=== PATIENT | male | born 1930 | race Two or more races ===

== ENCOUNTER 2016-11-22 20:48 | Inpatient (IN) | payer MEDICARE, MEDICAID ==
[~2016-11-22] VITALS: Ht 175.3 cm; Wt 46.3 kg
[~2016-11-22 20:48] MED LIST: CEFTIN500 MG PO; CLARITIN10 M2 PO; CLARITIN10 MG PO; DALIRESP PO; ECOTRIN81 MG PO; EXELON3 MG PO; FLOMAX0.4 MG PO; JANUVIA100 MG PO; KENALOG 0.1% LO60 ML TD; KENALOG IN ORABA1 EA TOP; LEXAPRO10 MG PO; MUCINEX600 MG PO; NAMENDA10 MG PO; NORCO 5-325 TA1 EACH ORAL; SILVADENE CREAM50 GM TOP; TYLENOL325 MG PO; TYLENOL500 MG PO; [UNRECOGNIZED DRUG - OTHER]; daliresp PO; vitamin e PO
[2016-11-22 22:05] LABS: BASOPHILS % (AUTO) 0.4 % (0.0-2.0); EOSINOPHILS % (AUTO) 0.5 % (0.0-3.0); LYMPHOCYTES % (AUTO) 10.4 % (20.0-45.0); MEAN CORPUSCULAR HEMOGLOBIN 35.1 PG (27.0-31.0); MEAN CORPUSCULAR HGB CONC 34.6 G/DL (32.0-36.0); MEAN CORPUSCULAR VOLUME 101 FL (80-99); MEAN PLATELET VOLUME 6.2 FL (6.5-10.1); MONOCYTES % (AUTO) 8.1 % (1.0-10.0); NEUTROPHILS % (AUTO) 80.6 % (45.0-75.0); PLATELET COUNT 216 K/UL (150-450); RED BLOOD COUNT 3.53 M/UL (4.70-6.10); RED CELL DISTRIBUTION WIDTH 11.2 % (11.6-14.8)
[2016-11-22 22:34] LABS: TROPONIN I < 0.30 ng/mL (<=0.30)
[2016-11-22 22:37] LABS: ALANINE AMINOTRANSFERASE 9 U/L (3-41); ALBUMIN/GLOBULIN RATIO 0.9 (1.0-2.7); ANION GAP 13 (5-15); ASPARTATE AMINO TRANSFERASE 20 U/L (5-40); CALCIUM 9.8 mg/dL (8.6-10.2); CARBON DIOXIDE 24 mEQ/L (20-30); CHLORIDE 98 mEQ/L (98-107); CREATININE 0.8 mg/dL (0.7-1.2); HEMOLYSIS 32; POTASSIUM 4.4 mEQ/L (3.4-4.9); SODIUM 135 mEQ/L (135-145); TOTAL PROTEIN 8.5 g/dL (6.6-8.7)
[2016-11-22 22:40] LABS: APPEARANCE,URINE CLEAR; KETONES,URINE 2+ (NEGATIVE); LEUKOCYTE ESTERASE ,URINE 2+ (NEGATIVE); NITRITE,URINE NEGATIVE (NEGATIVE); PH,URINE 6 (4.5-8.0); PROTEIN,URINE 2+ (NEGATIVE); UROBILINOGEN,URINE 1 MG/DL (0.0-1.0)
[2016-11-22 22:47] LABS: CKMB 4.1 ng/mL (< 6.7)
[2016-11-22 22:53] LABS: BACTERIA,URINE FEW /HPF
[2016-11-22 22:54] LABS: AMORPHOUS SEDIMENT,UR FEW /LPF
[2016-11-22] MEDS ORDERED: Azithromycin 500 MG in NS 275 ML IV SCH (23:00)
[2016-11-22] MEDS ORDERED: cefTRIAXone 1 GM in NS 55 ML IV SCH (23:00)
--- NOTE | 2016-11-22 23:19 | Emergency Room Report ---
History of Present Illness General Chief Complaint: Multiple Trauma/Fall Source: Family Member, EMS Present Illness HPI 86-year-old male presents ED for evaluation. Per EMS patient fell from his bed this morning and unable to get up. Patient was found in the evening. Patient is weak and unable to bear weight. Complaining of hip pain. 10 out of 10. Nonradiating. Unable to bear weight. Denies chest pain shortness of breath. Denies fevers or chills. PMD is Dr. Benítez. No other aggravating relieving factors. Denies any other associated symptoms Allergies: Coded Allergies: No Known Allergies (Unverified , 04/23/12) UNABLE TO ASSESS (Unverified , 11/22/16) Patient History Past Medical History: none Past Surgical History: none Pertinent Family History: none Social History: Denies: alcohol use, drug use, smoking Immunizations: UTD Reviewed Nursing Documentation: PMH: Agreed, PSxH: Agreed Nursing Documentation-PMH Past Medical History: No History, Except For Hx Cancer: Yes - high WBC Review of Systems All Other Systems: negative except mentioned in HPI Physical Exam Vital Signs Date Time Temp Pulse Resp B/P Pulse Ox O2 Delivery O2 Flow Rate FiO2 11/22/16 20:29 82 14 103/66 96 Room Air Sp02 EP Interpretation: reviewed, normal General Appearance: alert, GCS 15, non-toxic, mild distress, thin Head: normocephalic, atraumatic Eyes: bilateral eye PERRL, bilateral eye normal inspection ENT: hearing grossly normal, normal pharynx, no angioedema, normal voice Neck: full range of motion, supple/symm/no masses Respiratory: chest non-tender, lungs clear, normal breath sounds, speaking full sentences Cardiovascular #1: regular rate, rhythm, no edema Cardiovascular #2: 2+ carotid (R), 2+ carotid (L), 2+ radial (R), 2+ radial (L) , 2+ dorsalis pedis (R), 2+ dorsalis pedis (L) Gastrointestinal: normal bowel sounds, non tender, soft, non-distended, no guarding, no rebound Rectal: deferred Genitourinary: normal inspection, no CVA tenderness Musculoskeletal: back normal, gait/station normal, normal range of motion, tender Neurologic: alert, responsive, motor strength/tone normal, sensory intact, speech normal Psychiatric: mood/affect normal, no suicidal/homicidal ideation Reflexes: 3+ bicep (R), 3+ bicep (L), 3+ tricep (R), 3+ tricep (L), 3+ knee (R) , 3+ knee (L) Skin: normal color, no rash, warm/dry, well hydrated Lymphatic: no adenopathy Medical Decision Making Diagnostic Impression: Primary Impression: Gait instability Additional Impressions: Weakness UTI (urinary tract infection) Qualified Codes: N39.0 - Urinary tract infection, site not specified ER Course Hospital Course 86-year-old male complaining of hip pain weakness found down x1 day Differential diagnoses include: AR/unstable angina, arrythmia, dehydration, CVA/ TIA Clinical course Patient placed on stretcher. 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 After initial history and physical I ordered labs, EKG, chest x-ray, IVFs, CT Brain, CT Pelvis labs reviewed- noted leukocytosis, hemoglobin/hematocrit ok, electrolytes okay, troponins negative, UA + bacteria EKG- NSR, no acute changes interpreted by me Chest x-ray- atelectasis, interstitial changes CT brain-unremarkable, CT Pelvis ok IV fluids given, antibiotics given Case discussed with Dr. Benítez and he agreed to accept the patient to his service for further care and support I. I feel this is a highly complex case requiring extensive working including EKG/Rhythm strip, Xray/CT/US, Blood/urine lab work, repeat exams while in ED, and administration of strong opiates/narcotics for pain control, admission to hospital or close patient follow up. Diagnosis - gait instability, weakness, UTI admitted to floor in serious condition Labs Test 11/22/16 21:25 11/22/16 22:20 White Blood Count 17.0 K/UL (4.8-10.8) Red Blood Count 3.53 M/UL (4.70-6.10) Hemoglobin 12.4 G/DL (14.2-18.0) Hematocrit 35.8 % (42.0-52.0) Mean Corpuscular Volume 101 FL (80-99) Mean Corpuscular Hemoglobin 35.1 PG (27.0-31.0) Mean Corpuscular Hemoglobin Concent 34.6 G/DL (32.0-36.0) Red Cell Distribution Width 11.2 % (11.6-14.8) Platelet Count 216 K/UL (150-450) Mean Platelet Volume 6.2 FL (6.5-10.1) Neutrophils (%) (Auto) 80.6 % (45.0-75.0) Lymphocytes (%) (Auto) 10.4 % (20.0-45.0) Monocytes (%) (Auto) 8.1 % (1.0-10.0) Eosinophils (%) (Auto) 0.5 % (0.0-3.0) Basophils (%) (Auto) 0.4 % (0.0-2.0) Sodium Level 135 mEQ/L (135-145) Potassium Level 4.4 mEQ/L (3.4-4.9) Chloride Level 98 mEQ/L (98-107) Carbon Dioxide Level 24 mEQ/L (20-30) Anion Gap 13 (5-15) Blood Urea Nitrogen 28 mg/dL (7-23) Creatinine 0.8 mg/dL (0.7-1.2) Estimat Glomerular Filtration Rate mL/min (>60) Glucose Level 114 mg/dL (74-106) Lactic Acid Level 1.60 mmol/L (0.66-2.22) Calcium Level 9.8 mg/dL (8.6-10.2) Total Bilirubin 0.9 mg/dL (0.0-1.2) Aspartate Amino Transf (AST/SGOT) 20 U/L (5-40) Alanine Aminotransferase (ALT/SGPT) 9 U/L (3-41) Alkaline Phosphatase 92 U/L (40-129) Total Creatine Kinase 167 U/L (38-174) Creatine Kinase MB 4.1 ng/mL (< 6.7) Creatine Kinase MB Relative Index 2.4 Troponin I < 0.30 ng/mL (<=0.30) Pro-B-Type Natriuretic Peptide 526 pg/mL (0-450) Total Protein 8.5 g/dL (6.6-8.7) Albumin 4.2 g/dL (3.5-5.2) Globulin 4.3 g/dL Albumin/Globulin Ratio 0.9 (1.0-2.7) Urine Color Yellow Urine Appearance Clear Urine pH 6 (4.5-8.0) Urine Specific [place] 1.020 (1.005-1.035) Urine Protein 2+ (NEGATIVE) Urine Glucose (UA) Negative (NEGATIVE) Urine Ketones 2+ (NEGATIVE) Urine Occult Blood 3+ (NEGATIVE) Urine Nitrite Negative (NEGATIVE) Urine Bilirubin Negative (NEGATIVE) Urine Urobilinogen 1 MG/DL (0.0-1.0) Urine Leukocyte Esterase 2+ (NEGATIVE) Urine RBC 5-10 /HPF (0 - 0) Urine WBC 2-4 /HPF (0 - 0) Urine Squamous Epithelial Cells None /LPF (NONE/OCC) Urine Amorphous Sediment Few /LPF (NONE) Urine Bacteria Few /HPF (NONE) EKG Diagnostic Results Rate: normal Rhythm: NSR ST Segments: no acute changes ASA given to the pt in ED: No Rhythm Strip Diag. Results EP Interpretation: yes Rhythm: NSR, no PVC's, no ectopy Chest X-Ray Diagnostic Results Chest X-Ray Diagnostic Results : Chest X-Ray Ordered: Yes # of Views/Limited/Complete: 1 View Indication: Other - weakness EP Interpretation: Yes Interpretation: no effusion, no pneumothorax, no acute cardiopulmonary disease, other - atelectasis. interstitial changes Impression: Other - atelectasis Interpreting ER Provider: electronically signed by Jon steen mD CT/MRI/US Diagnostic Results CT/MRI/US Diagnostic Results #1: Imaging Test Ordered: CT Head Impression no acute process CT/MRI/US Diagnostic Results #2: Imaging Test Ordered: CT Pelvis Impression no acute process Last Vital Signs Date Time Temp Pulse Resp B/P Pulse Ox O2 Delivery O2 Flow Rate FiO2 11/22/16 20:29 82 14 103/66 96 Room Air Status: improved Disposition: ADMITTED INPATIENT Condition: Serious Referrals: NOT CHOSEN IPA/,REFERRING (PCP) JON STEEN M.D. Nov 22, 2016 23:19
[2016-11-22] MEDS ORDERED: Azithromycin Inj IV ONE (23:29)
[2016-11-23 01:34] VITALS: BP 126/55
[2016-11-23 04:38] VITALS: BP 120/60
[2016-11-23 07:04] LABS: BASOPHILS % (AUTO) 0.3 % (0.0-2.0); EOSINOPHILS % (AUTO) 1.5 % (0.0-3.0); MEAN CORPUSCULAR HEMOGLOBIN 34.4 PG (27.0-31.0); MEAN CORPUSCULAR HGB CONC 33.6 G/DL (32.0-36.0); MEAN CORPUSCULAR VOLUME 102 FL (80-99); MEAN PLATELET VOLUME 6.7 FL (6.5-10.1); MONOCYTES % (AUTO) 8.7 % (1.0-10.0); NEUTROPHILS % (AUTO) 74.5 % (45.0-75.0); PLATELET COUNT 204 K/UL (150-450); RED BLOOD COUNT 3.13 M/UL (4.70-6.10); RED CELL DISTRIBUTION WIDTH 11.3 % (11.6-14.8); WHITE BLOOD COUNT 11.4 K/UL (4.8-10.8)
[2016-11-23 07:36] LABS: ANION GAP 8 (5-15); CALCIUM 8.9 mg/dL (8.6-10.2); CARBON DIOXIDE 27 mEQ/L (20-30); CHLORIDE 103 mEQ/L (98-107); CREATININE 0.7 mg/dL (0.7-1.2); HEMOLYSIS 3; POTASSIUM 4.6 mEQ/L (3.4-4.9); SODIUM 138 mEQ/L (135-145)
[2016-11-23 08:34] VITALS: BP 140/70
[2016-11-23] MEDS: Memantine 10mg tab ORAL SCH ×2 (09:53→17:51)
[2016-11-23] MEDS: EXELON 4.6 MG TDERMAL SCH (09:54)
[2016-11-23] MEDS: Heparin 5000 units/ml inj SUBQ SCH ×2 (09:56→17:58)
[2016-11-23] MEDS: Azithromycin 500 MG in NS 275 ML IV SCH (11:17)
[2016-11-23 11:23] VITALS: BP 136/68
[2016-11-23] MEDS: cefTRIAXone 1 GM in NS 55 ML IVPB SCH (13:04)
[2016-11-23 15:56] VITALS: BP 142/75
[2016-11-23] MEDS ORDERED: LORazepam 0.5mg tab ORAL PRN (16:45)
--- NOTE | 2016-11-23 16:51 | General Progress Note ---
Assessment/Plan Status: stable Assessment/Plan 1. UTI - cont Rocephin 1 gm IV daily. 2. Generalized Weakness - PT/OT eval and txt ordered. 3. Ella instability - Plan to transfer to [facility] or [facility] on Sunday. 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 5. DM II - stable. 6. BPH - cont flomax 0.4 mg one po qhs. 7. COPD - Symbicort 160/4.5 one puff bid and Spiriva one cap daily. 8. Anxiety disorder - Ativan 0.5 mg one po qhs prn. 9. GERD- start zantac 150 gm one po qhs. Subjective Date patient seen: Nov 23, 2016 Time patient seen: 08:40 Constitutional: Reports: weakness HEENT: Reports: no symptoms Cardiovascular: Reports: no symptoms Respiratory: Reports: no symptoms Gastrointestinal/Abdominal: Reports: no symptoms Genitourinary: Reports: no symptoms Neurologic/Psychiatric: Reports: no symptoms Endocrine: Reports: no symptoms Hematologic/Lymphatic: Reports: no symptoms Allergies: Coded Allergies: No Known Allergies (Unverified , 04/23/12) UNABLE TO ASSESS (Unverified , 11/22/16) Subjective He is resting on the bed. No SOB or Chest pain. No fever or chills. He still feels weak. Objective Last 24 Hour Vital Signs Date Time Temp Pulse Resp B/P Pulse Ox O2 Delivery O2 Flow Rate FiO2 11/23/16 15:56 98.4 70 20 142/75 98 Room Air 11/23/16 11:23 98.0 68 20 136/68 98 Room Air 11/23/16 08:34 97.2 64 20 140/70 98 Room Air 11/23/16 04:38 98.1 70 21 120/60 99 Room Air 70 70 11/23/16 02:20 97.5 11/23/16 01:34 97.5 57 21 126/55 96 Room Air 57 57 11/23/16 00:15 98.8 79 19 97 Room Air 84 11/23/16 00:07 69 17 148/53 97 Room Air 11/22/16 20:29 82 14 103/66 96 Room Air Intake and Output 11/22/16 11/23/16 19:00 07:00 Intake Total 250 ml Output Total 100 ml Balance 150 ml IV Total 250 ml Output Urine Total 100 ml # Voids 1 Laboratory Tests 11/22/16 21:25: White Blood Count 17.0H, Red Blood Count 3.53L, Hemoglobin 12.4L, Hematocrit 35.8L, Mean Corpuscular Volume 101H, Mean Corpuscular Hemoglobin 35.1H, Mean Corpuscular Hemoglobin Concent 34.6, Red Cell Distribution Width 11.2L, Platelet Count 216, Mean Platelet Volume 6.2L, Neutrophils (%) (Auto) 80.6H, Lymphocytes (%) (Auto) 10.4L, Monocytes (%) (Auto) 8.1, Eosinophils (%) (Auto) 0.5, Basophils (%) (Auto) 0.4, Sodium Level 135, Potassium Level 4.4, Chloride Level 98, Carbon Dioxide Level 24, Anion Gap 13, Blood Urea Nitrogen 28H, Creatinine 0.8, Estimat Glomerular Filtration Rate , Glucose Level 114H, Lactic Acid Level 1.60, Calcium Level 9.8, Total Bilirubin 0.9, Aspartate Amino Transf (AST/SGOT) 20, Alanine Aminotransferase (ALT/SGPT) 9, Alkaline Phosphatase 92, Total Creatine Kinase 167, Creatine Kinase MB 4.1, Creatine Kinase MB Relative Index 2.4, Troponin I < 0.30, Pro-B-Type Natriuretic Peptide 526H, Total Protein 8.5, Albumin 4.2, Globulin 4.3, Albumin/Globulin Ratio 0.9L 11/22/16 22:20: Urine Color Yellow, Urine Appearance Clear, Urine pH 6, Urine Specific [place] 1.020, Urine Protein 2+H, Urine Glucose (UA) Negative, Urine Ketones 2+H, Urine Occult Blood 3+H, Urine Nitrite Negative, Urine Bilirubin Negative, Urine Urobilinogen 1H, Urine Leukocyte Esterase 2+H, Urine RBC 5-10H, Urine WBC 2-4, Urine Squamous Epithelial Cells None, Urine Amorphous Sediment FewH, Urine Bacteria Few 11/23/16 05:50: White Blood Count 11.4H, Red Blood Count 3.13L, Hemoglobin 10.8L, Hematocrit 32.0L, Mean Corpuscular Volume 102H, Mean Corpuscular Hemoglobin 34.4H, Mean Corpuscular Hemoglobin Concent 33.6, Red Cell Distribution Width 11.3L, Platelet Count 204, Mean Platelet Volume 6.7, Neutrophils (%) (Auto) 74.5, Lymphocytes (%) (Auto) 15.0L, Monocytes (%) (Auto) 8.7, Eosinophils (%) (Auto) 1.5, Basophils (%) (Auto) 0.3, Sodium Level 138, Potassium Level 4.6, Chloride Level 103, Carbon Dioxide Level 27, Anion Gap 8, Blood Urea Nitrogen 21, Creatinine 0.7, Estimat Glomerular Filtration Rate , Glucose Level 107H, Calcium Level 8.9 Height (Feet): 5 Height (Inches): 9.00 Weight (Pounds): 102 General Appearance: no apparent distress, alert EENT: normal ENT inspection Neck: non-tender, normal alignment, supple Cardiovascular: normal peripheral pulses, normal rate, regular rhythm Respiratory/Chest: chest wall non-tender, lungs clear, normal breath sounds, no respiratory distress Abdomen: normal bowel sounds, non tender, soft, no organomegaly Extremities: normal range of motion, non-tender, normal inspection Edema: no edema noted Arm (L), no edema noted Arm (R), no edema noted Leg (L), no edema noted Leg (R), no edema noted Pedal (L), no edema noted Pedal (R), no edema noted Generalized Neurologic: alert, responsive Lymphatic: normal anterior cervical (L), normal anterior cervical (R), normal axillary (L), normal axillary (R), normal inguinal (L), normal inguinal (R), normal other, normal posterior cervical (L), normal posterior cervical (R), normal submandibular (L), normal submandibular (R), normal supraclavicular (L), normal supraclavicular (R) LETY BENNETT Nov 23, 2016 16:51
[2016-11-23 20:00] VITALS: BP 129/59
[2016-11-23] MEDS: Tamsulosin 0.4mg cap ORAL SCH (20:54)
[2016-11-24] VITALS: BP 121/60
[2016-11-24 04:00] VITALS: BP 113/54
--- NOTE | 2016-11-24 04:45 | History and Physical Report ---
DATE OF ADMISSION: 11/22/2016 CHIEF COMPLAINT: Generalized weakness and recent fall. HISTORY OF PRESENT ILLNESS: This is an 86-year-old [place] male who was brought in by paramedics for complaint of a fall at home. The patient fell from his bed at home and was unable to stand up. He was extremely weak and unable to bear any weight. The patient's states that he has been weak in the last few days. PAST MEDICAL HISTORY: History of diabetes, BPH, Alzheimer disease, depression, history of pneumonia and bronchiectasis previously, osteoarthritis of the feet and ankle and the knees, diabetic neuropathy and chronic headache. PAST SURGICAL HISTORY: Back surgery in 2004 and also had a prostate surgery as well. ALLERGIES: No known drug allergies. SOCIAL HISTORY: No history of smoking, no alcohol, or drug use. FAMILY HISTORY: Noncontributory. REVIEW OF SYSTEMS: Everything is negative except for history of present illness. PHYSICAL EXAMINATION: VITAL SIGNS: Blood pressure is 103/66, pulse 82, respiration 14 and pulse oximetry 96% on room air. GENERAL APPEARANCE: Alert, nontoxic and in no acute distress. HEENT: Normocephalic. Normochromic. Extraocular muscles intact. Throat is clear. NECK: Supple. No lymphadenopathy. LUNGS: Clear to auscultation bilaterally. No rales. No rhonchi. CARDIOVASCULAR: Regular rate and rhythm. No murmur. No gallop. ABDOMEN: Soft, nontender, and nondistended. Positive bowel sounds. GENITOURINARY: No CVA tenderness. EXTREMITIES: No edema, cyanosis or clubbing. SKIN: No rash. LABORATORY AND DIAGNOSTIC DATA: Sodium 135, potassium 4.4, chloride 98, bicarbonate 24, BUN 28, creatinine 0.8, and glucose 114. Lactic acid 1.6. Calcium 9.8. AST 20, ALT 9 and alkaline phosphatase 92. Troponin less than 0.3. BNP 526. Albumin 4.2. WBC 17,000, hemoglobin 12.4, hematocrit 35.8, and platelet count is 216,000 neutrophils 880.6. Urine showed +2 urine protein, +2 ketones, +3 occult blood, urobilinogen is 1, leukocyte esterase is 2+ and urine RBC of 5-10, urine WBC 2-4 and amorphous sediment showed few sediments and no epithelial cells and few bacteria. Chest x-ray was negative for acute changes. EKG showed normal sinus rhythm. IMPRESSION AND PLAN: 1. This is an 86-year-old [place] male who will be admitted for urinary tract infection and generalized weakness and gait instability with recent fall. The patient will be started on intravenous antibiotics and PT/OT evaluation and treatment. The patient will be discharged to rehabilitation after four days of admission. 2. History of Alzheimer disease. 3. Diabetes mellitus. 4. Benign prostatic hypertrophy. 5. Depression. 6. Osteoarthritis. 7. Diabetic neuropathy. 8. Chronic headache. She will be restarted on home medications. She will be admitted for minimum of 2 night stay for above treatment. Pantera Benítez M.D. DR: EFRAIN JOB#: [id number] CC: MOODY
[2016-11-24 06:17] LABS: BASOPHILS % (AUTO) 0.6 % (0.0-2.0); EOSINOPHILS % (AUTO) 1.5 % (0.0-3.0); LYMPHOCYTES % (AUTO) 13.9 % (20.0-45.0); MEAN CORPUSCULAR HEMOGLOBIN 34.3 PG (27.0-31.0); MEAN CORPUSCULAR HGB CONC 33.6 G/DL (32.0-36.0); MEAN CORPUSCULAR VOLUME 102 FL (80-99); MEAN PLATELET VOLUME 6.7 FL (6.5-10.1); MONOCYTES % (AUTO) 8.6 % (1.0-10.0); NEUTROPHILS % (AUTO) 75.4 % (45.0-75.0); PLATELET COUNT 222 K/UL (150-450); RED BLOOD COUNT 3.05 M/UL (4.70-6.10); WHITE BLOOD COUNT 11.6 K/UL (4.8-10.8)
[2016-11-24 06:52] LABS: ANION GAP 11 (5-15); CARBON DIOXIDE 26 mEQ/L (20-30); CHLORIDE 101 mEQ/L (98-107); CREATININE 0.6 mg/dL (0.7-1.2); HEMOLYSIS 1; POTASSIUM 4.2 mEQ/L (3.4-4.9); SODIUM 138 mEQ/L (135-145)
[2016-11-24 08:00] VITALS: BP 113/54
[2016-11-24] MEDS: cefTRIAXone 1 GM in NS 55 ML IVPB SCH (08:33)
[2016-11-24] MEDS: Memantine 10mg tab ORAL SCH ×2 (08:33→17:36)
[2016-11-24] MEDS: EXELON 4.6 MG TDERMAL SCH (08:33)
[2016-11-24] MEDS: Heparin 5000 units/ml inj SUBQ SCH ×2 (08:39→17:41)
[2016-11-24] MEDS: Azithromycin 500 MG in NS 275 ML IV SCH (09:00)
[2016-11-24 12:00] VITALS: BP 124/58
[2016-11-24 16:00] VITALS: BP 117/80
--- NOTE | 2016-11-24 18:29 | General Progress Note ---
Assessment/Plan Status: stable Assessment/Plan 1. UTI - cont Rocephin 1 gm IV daily. 2. Acute Bronchitis - cont Azithromycin 500 mg IV daily. 3. Generalized Weakness - PT/OT eval and txt ordered. 4. Ella instability - Plan to transfer to [facility] or [facility] on Sunday. 5. 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 6. DM II - stable. 7. BPH - cont flomax 0.4 mg one po qhs. 8. COPD - Symbicort 160/4.5 one puff bid and Spiriva one cap daily. 9. Anxiety disorder - Ativan 0.5 mg one po qhs prn. 10. GERD- cont zantac 150 gm one po qhs. Subjective Date patient seen: Nov 24, 2016 Time patient seen: 08:30 Constitutional: Reports: weakness HEENT: Reports: no symptoms Cardiovascular: Reports: no symptoms Respiratory: Reports: cough Gastrointestinal/Abdominal: Reports: no symptoms Genitourinary: Reports: no symptoms Neurologic/Psychiatric: Reports: no symptoms Endocrine: Reports: no symptoms Hematologic/Lymphatic: Reports: no symptoms Allergies: Coded Allergies: No Known Allergies (Unverified , 04/23/12) UNABLE TO ASSESS (Unverified , 11/22/16) Subjective He is resting on the bed. No SOB or Chest pain. No fever or chills. He still feels weak and he has slight coughing as well. Objective Last 24 Hour Vital Signs Date Time Temp Pulse Resp B/P Pulse Ox O2 Delivery O2 Flow Rate FiO2 11/24/16 16:00 99.0 70 19 117/80 96 Room Air 11/24/16 12:00 98.4 67 18 124/58 96 Room Air 11/24/16 09:32 66 16 98 Room Air 11/24/16 09:32 68 16 98 Room Air 11/24/16 08:00 98.4 69 19 113/54 97 Room Air 11/24/16 04:00 98.1 65 18 113/54 Room Air 11/24/16 00:00 99.0 69 18 121/60 96 Room Air 11/23/16 20:02 64 20 97 Room Air 11/23/16 20:01 64 20 97 Room Air 11/23/16 20:00 98.0 69 18 129/59 95 Room Air Intake and Output 11/23/16 11/24/16 19:00 07:00 Intake Total 1560 ml 840 ml Balance 1560 ml 840 ml Intake Oral 480 ml 240 ml IV Total 1080 ml Other 600 ml # Voids 5 3 Laboratory Tests 11/24/16 05:30: White Blood Count 11.6H, Red Blood Count 3.05L, Hemoglobin 10.5L, Hematocrit 31.1L, Mean Corpuscular Volume 102H, Mean Corpuscular Hemoglobin 34.3H, Mean Corpuscular Hemoglobin Concent 33.6, Red Cell Distribution Width 11.0L, Platelet Count 222, Mean Platelet Volume 6.7, Neutrophils (%) (Auto) 75.4H, Lymphocytes (%) (Auto) 13.9L, Monocytes (%) (Auto) 8.6, Eosinophils (%) (Auto) 1.5, Basophils (%) (Auto) 0.6, Sodium Level 138, Potassium Level 4.2, Chloride Level 101, Carbon Dioxide Level 26, Anion Gap 11, Blood Urea Nitrogen 15, Creatinine 0.6L, Estimat Glomerular Filtration Rate , Glucose Level 95, Calcium Level 9.0 Height (Feet): 5 Height (Inches): 9.00 Weight (Pounds): 102 General Appearance: no apparent distress, alert EENT: normal ENT inspection Neck: non-tender, normal alignment, supple Cardiovascular: normal peripheral pulses, normal rate, regular rhythm Respiratory/Chest: chest wall non-tender, lungs clear, normal breath sounds Abdomen: normal bowel sounds, non tender, soft Extremities: normal range of motion, non-tender Edema: no edema noted Arm (L), no edema noted Arm (R), no edema noted Leg (L), no edema noted Leg (R), no edema noted Pedal (L), no edema noted Pedal (R), no edema noted Generalized Neurologic: no motor/sensory deficits, alert, responsive Skin: warm/dry Lymphatic: normal anterior cervical (L), normal anterior cervical (R), normal axillary (L), normal axillary (R), normal inguinal (L), normal inguinal (R), normal other, normal posterior cervical (L), normal posterior cervical (R), normal submandibular (L), normal submandibular (R), normal supraclavicular (L), normal supraclavicular (R) LETY BENNETT Nov 24, 2016 18:29
[2016-11-24 20:00] VITALS: BP 141/71
[2016-11-24] MEDS ORDERED: Azithromycin 500 MG in D5W 275 ML IV ONE (20:00)
[2016-11-24] MEDS: Tamsulosin 0.4mg cap ORAL SCH (20:03)
[2016-11-24] MEDS ORDERED: traMADol 50mg tab ORAL PRN (20:45)
[2016-11-24] MEDS: traMADol 50mg tab ORAL PRN (21:41)
[2016-11-25] VITALS: BP 137/61
[2016-11-25 04:00] VITALS: BP 134/70
[2016-11-25 07:23] LABS: BASOPHILS % (AUTO) 0.6 % (0.0-2.0); EOSINOPHILS % (AUTO) 2.6 % (0.0-3.0); LYMPHOCYTES % (AUTO) 18.2 % (20.0-45.0); MEAN CORPUSCULAR HEMOGLOBIN 34.2 PG (27.0-31.0); MEAN CORPUSCULAR HGB CONC 34.4 G/DL (32.0-36.0); MEAN CORPUSCULAR VOLUME 100 FL (80-99); NEUTROPHILS % (AUTO) 68.6 % (45.0-75.0); PLATELET COUNT 248 K/UL (150-450); RED BLOOD COUNT 3.12 M/UL (4.70-6.10); RED CELL DISTRIBUTION WIDTH 10.7 % (11.6-14.8); WHITE BLOOD COUNT 8.7 K/UL (4.8-10.8)
[2016-11-25 08:09] LABS: ANION GAP 13 (5-15); CALCIUM 9.3 mg/dL (8.6-10.2); CARBON DIOXIDE 25 mEQ/L (20-30); CHLORIDE 97 mEQ/L (98-107); CREATININE 0.6 mg/dL (0.7-1.2); HEMOLYSIS 3; SODIUM 135 mEQ/L (135-145)
[2016-11-25 08:22] VITALS: BP 109/52
[2016-11-25] MEDS: cefTRIAXone 1 GM in NS 55 ML IVPB SCH (08:48)
[2016-11-25] MEDS: Memantine 10mg tab ORAL SCH (08:49)
[2016-11-25] MEDS: EXELON 4.6 MG TDERMAL SCH (08:49)
[2016-11-25] MEDS: traMADol 50mg tab ORAL PRN (08:53)
[2016-11-25] MEDS: Heparin 5000 units/ml inj SUBQ SCH (08:56)
[2016-11-25] MEDS ORDERED: ACETAMINOPHEN325 M1 ORAL (10:04)
[2016-11-25] MEDS ORDERED: SYMBICORT 1601 PUFFS INH (10:06)
[2016-11-25] MEDS ORDERED: RANITIDINE HCL150 MG ORAL (10:07)
[2016-11-25] MEDS ORDERED: SPIRIVA18 MCG INH (10:08)
[2016-11-25] MEDS ORDERED: TRAMADOL HCL50 MG ORAL (10:09)
[2016-11-25] MEDS ORDERED: ATIVAN0.5 MG ORAL (10:10)
[2016-11-25] MEDS ORDERED: EXELON1 EACH TD (10:11)
[2016-11-25] MEDS ORDERED: AZITHROMYCIN250 MG ORAL (10:12)
[2016-11-25] MEDS ORDERED: CEFTRIAXONE1 G2 IVPB (10:14)
[2016-11-25] MEDS ORDERED: Tubing IV Secondary IV ONE (11:30)
[2016-11-25 12:15] VITALS: BP 122/51
--- NOTE | 2016-11-25 18:45 | Discharge Summary ---
DATE OF ADMISSION: 11/22/2016 DATE OF DISCHARGE: 11/25/2016 HOSPITAL COURSE: This is an 86-year-old [place] male, who came in by paramedics for complaint of fall and was unable to be get up on the day of admission. The patient was found to have urinary tract infection and was started on intravenous Rocephin. He also had acute bronchitis with long history of chronic obstructive pulmonary disease and he was started on azithromycin intravenous as well. The patient responded to treatment well and was transferred to the group home, rehabilitation center for physical therapy followed up by transferred back to the patient home after few weeks. FINAL DIAGNOSES: Include, 1. Urinary tract infection. 2. Acute bronchitis. 3. Generalized weakness. 4. Gait instability. 5. Alzheimer disease. 6. Diabetes, type 2. 7. Benign prostatic hyperplasia. 8. Chronic obstructive pulmonary disease. 9. Anxiety disorder. 10. Gastroesophageal reflux disease. DISCHARGE MEDICATIONS: Azithromycin 500 mg one p.o. daily x2 days, acetaminophen 650 q.4 hours p.r.n. for pain, Symbicort 160/4.5 one puff b.i.d., Rocephin 1 g IV daily for 4 days, Ativan 0.5 mg daily p.r.n., Namenda 10 mg b.i.d., Zantac 150 mg p.o. daily, Exelon patch 4.5 mg one daily, Januvia 100 mg p.o. daily, Flomax 0.4 mg daily, Spiriva 18 mcg one puff daily, and Ultram 50 mg q.8 hours as needed for pain and headache. DISPOSITION: The patient will be discharged to [facility] and I will follow up the patient in the rehabilitation and outpatient. Pantera Benítez M.D. DR: CHONG JOB#: [id number] CC: MOODY
--- NOTE | 2016-11-27 19:03 | Cardiology Report ---
APPROVED REPORT EKG Measurement Heart [id number] Normal sinus rhythm Minimal voltage criteria for LVH, may be normal variant Borderline ECG
== END 2016-11-25 11:31 | DRG 690 ==
LOC: EDBD 20:48 → EMR 21:10 → 4W 21:21 → EDBEDREQ 23:33
DX: N39.0 Urinary tract infection, site not specified (principal); E11.40 Type 2 diabetes mellitus with diabetic neuropathy, unspecified; G30.9 Alzheimer's disease, unspecified; F02.80 Dementia in other diseases classified elsewhere, unspecified severity, without behavioral disturbance, psychotic disturbance, mood disturbance, and anxiety; J44.9 Chronic obstructive pulmonary disease, unspecified; W06.XXXA Fall from bed, initial encounter; R53.1 Weakness; J20.9 Acute bronchitis, unspecified; R26.81 Unsteadiness on feet; N40.0 Benign prostatic hyperplasia without lower urinary tract symptoms; F41.9 Anxiety disorder, unspecified; K21.9 Gastro-esophageal reflux disease without esophagitis; Z91.81 History of falling; M15.9 Polyosteoarthritis, unspecified
CPT/HCPCS: 36415; 70450; 71010; 72192; 80048; 80053; 81003; 82550; 82553; 83605; 83880; 84484; 85025; 87040; 93005; 94640; C9399; J2405

== ENCOUNTER 2019-06-26 10:36 | Inpatient (IN) | payer MEDICARE, MEDICAID ==
[~2019-06-26] VITALS: Ht 170.2 cm; Wt 44.9 kg
[~2019-06-26 10:36] MED LIST changes: +ACETAMINOPHEN325 M1 ORAL; +ATIVAN0.5 MG ORAL; +AZITHROMYCIN250 MG ORAL; +CEFTRIAXONE1 G2 IVPB; +EXELON1 EACH TD; +RANITIDINE HCL150 MG ORAL; +SPIRIVA18 MCG INH; +SYMBICORT 1601 PUFFS INH; +TRAMADOL HCL50 MG ORAL
[2019-06-26 10:51] VITALS: BP 100/57
--- NOTE | 2019-06-26 10:56 | NUR ---
ED Nurse Note: PT BROUGHT IN BY AMBULANCE FROM [facility] DUE TO PALPITATION HR OF 14O AFTER BREATHING TREATMENT THIS MORNING. ALSO REPORTED THAT PT IS VOMITING; PT IS ON ANTIBIOTIC DUE TO PNA. AAO X1, FOLLOWS COMMANDS WITH MILD SOB UPON EXERTION. SATS 98-100 % VIA NC OXYGEN AT 2LPM.
[2019-06-26] MEDS ORDERED: Cefepime HCl 2 GM in NS 110 ML IV ONE (11:15)
[2019-06-26] MEDS ORDERED: Vancomycin 1 GM in NS 275 ML IV ONE (11:15)
--- NOTE | 2019-06-26 11:32 | NUR ---
ED Nurse Note: COLLECTED BLOOD AND FLU SWAB THEN SENT.
[2019-06-26 11:43] LABS: HEMATOCRIT 34.8 % (42.0-52.0); HEMOGLOBIN 11.6 G/DL (14.2-18.0); MEAN CORPUSCULAR VOLUME 92 FL (80-99); PLATELET COUNT 319 K/UL (150-450); RED BLOOD COUNT 3.76 M/UL (4.70-6.10); RED CELL DISTRIBUTION WIDTH 13.2 % (11.6-14.8)
[2019-06-26 12:04] VITALS: BP 90/50
[2019-06-26 12:13] LABS: ANION GAP 12 mmol/L (5-15); BLOOD UREA NITROGEN 12 mg/dL (7-18); CALCIUM 9.1 MG/DL (8.5-10.1); CARBON DIOXIDE 22 MMOL/L (21-32); CHLORIDE 102 MMOL/L (98-107); CREATININE 0.9 MG/DL (0.55-1.30); POTASSIUM 4.5 MMOL/L (3.5-5.1); SODIUM 136 MMOL/L (136-145)
[2019-06-26] MEDS ORDERED: LATANOPROST 0.7.5 ML OP (12:21)
[2019-06-26] MEDS ORDERED: SIMETHICONE80 MG ORAL (12:21)
[2019-06-26] MEDS ORDERED: BREO ELLIPTA 11 EACH IH (12:21)
[2019-06-26] MEDS ORDERED: DOCUSATE SODIU250 MG ORAL (12:21)
[2019-06-26] MEDS ORDERED: FLOMAX0.4 MG ORAL (12:21)
[2019-06-26] MEDS ORDERED: TYLENOL EXTRA500 MG ORAL (12:21)
[2019-06-26] MEDS ORDERED: COSOPT1 DRO2 BOTH EYES (12:21)
[2019-06-26] MEDS ORDERED: ATENOLOL25 MG ORAL (12:21)
[2019-06-26] MEDS ORDERED: MULTIVITAMINS1 EAC8 ORAL (12:21)
[2019-06-26] MEDS ORDERED: PROSCAR5 MG ORAL (12:21)
[2019-06-26] MEDS ORDERED: ZANTAC150 MG ORAL (12:21)
[2019-06-26] MEDS ORDERED: MIRALAX17 G2 ORAL (12:21)
[2019-06-26] MEDS ORDERED: TRAZODONE HCL50 MG ORAL (12:21)
[2019-06-26] MEDS ORDERED: SPIRIVA18 MCG INH (12:21)
[2019-06-26 12:22] LABS: ALANINE AMINOTRANSFERASE 11 U/L (12-78); ALBUMIN 2.9 G/DL (3.4-5.0); ALBUMIN/GLOBULIN RATIO 0.5 (1.0-2.7); ALKALINE PHOSPHATASE 81 U/L (46-116); ASPARTATE AMINO TRANSFERASE 15 U/L (15-37); BILIRUBIN,TOTAL 0.7 MG/DL (0.2-1.0); CKMB 1.2 NG/ML (0.0-3.6); CREATINE KINASE 25 U/L (26-308); PHOSPHORUS 3.6 MG/DL (2.5-4.9)
[2019-06-26 12:47] LABS: APPEARANCE,URINE CLEAR; BILIRUBIN, URINE NEGATIVE (NEGATIVE); GLUCOSE, URINE (UA) NEGATIVE (NEGATIVE); KETONES,URINE 1+ (NEGATIVE); LEUKOCYTE ESTERASE ,URINE 1+ (NEGATIVE); NITRITE,URINE NEGATIVE (NEGATIVE); PH,URINE 6.5 (4.5-8.0); PROTEIN,URINE 2+ (NEGATIVE); UROBILINOGEN,URINE NORMAL MG/DL (0.0-1.0)
[2019-06-26 12:50] LABS: COLOR,URINE YELLOW
--- NOTE | 2019-06-26 12:56 | NUR ---
ED Nurse Note: REPEAT LACTIC ACID SPECIMEN SENT.
[2019-06-26] MEDS ORDERED: Albuterol/Ipratropium 3ml neb HHN ONE (13:00)
--- NOTE | 2019-06-26 14:04 | NUR ---
ED Nurse Note: NOTED MILD SKIN REDNESS ON SACRUM BUT SKIN IS INTACT.
[2019-06-26 14:05] VITALS: BP 103/54
--- NOTE | 2019-06-26 14:13 | Emergency Room Report ---
History of Present Illness General Chief Complaint: Palpitations Present Illness HPI Patient is an 89-year-old male who presented after increased cough and difficulty with breathing. Patient recently been diagnosed with pneumonia. Prior history of COPD. Reports of increased shortness of breath. He had previously been on medications which included inhalers. Patient's primary care physician is . Allergies: Coded Allergies: No Known Allergies (Unverified , 04/23/12) Patient History Past Medical History: see triage record Reviewed Nursing Documentation: PMH: Agreed; PSxH: Agreed Nursing Documentation-PMH Hx Cardiac Problems: No Hx COPD: Yes Hx Cancer: Yes Hx Dementia: Yes Review of Systems All Other Systems: negative except mentioned in HPI Physical Exam Vital Signs Date Time Temp Pulse Resp B/P (MAP) Pulse Ox O2 Delivery O2 Flow Rate FiO2 06/26/19 10:46 97.3 110 24 87/55 (66) 93 Nasal Cannula 3.0 06/26/19 12:55 32 Sp02 EP Interpretation: reviewed, normal General Appearance: normal inspection, alert, GCS 15, Chronically Ill Head: atraumatic ENT: normal ENT inspection, hearing grossly normal, normal voice Neck: normal inspection, full range of motion, supple, no bony tend Respiratory: normal inspection, no retraction, rhonchi, wheezing Cardiovascular #1: regular rate, rhythm, no edema Gastrointestinal: normal inspection, normal bowel sounds, non tender, soft, no guarding, no hernia Genitourinary: no CVA tenderness Musculoskeletal: normal inspection, back normal, normal range of motion Neurologic: alert, motor strength/tone normal, blogs manager III-XII nml as tested, oriented x3, responsive, speech normal, normal inspection Psychiatric: normal inspection, judgement/insight normal, mood/affect normal Medical Decision Making Diagnostic Impression: Primary Impression: Pneumonia ER Course Patient presented for shortness of breath. Differential included but was not limited to anemia, pneumonia, pneumothorax, myocardial infarction, pericardial effusion, congestive heart failure, acidosis chest x-ray 1 view interpreted by me showed. Normal cardiac size with patchy infiltrates worse on the left side. Patient was given IV fluids as well as IV antibiotics. Dr. Parker was contacted for admission due to primary care physician. Labs Test 06/26/19 11:30 06/26/19 11:57 06/26/19 12:20 White Blood Count 19.0 K/UL (4.8-10.8) Red Blood Count 3.76 M/UL (4.70-6.10) Hemoglobin 11.6 G/DL (14.2-18.0) Hematocrit 34.8 % (42.0-52.0) Mean Corpuscular Volume 92 FL (80-99) Mean Corpuscular Hemoglobin 31.0 PG (27.0-31.0) Mean Corpuscular Hemoglobin Concent 33.5 G/DL (32.0-36.0) Red Cell Distribution Width 13.2 % (11.6-14.8) Platelet Count 319 K/UL (150-450) Mean Platelet Volume 5.7 FL (6.5-10.1) Neutrophils (%) (Auto) % (45.0-75.0) Lymphocytes (%) (Auto) % (20.0-45.0) Monocytes (%) (Auto) % (1.0-10.0) Eosinophils (%) (Auto) % (0.0-3.0) Basophils (%) (Auto) % (0.0-2.0) Differential Total Cells Counted 100 Neutrophils % (Manual) 89 % (45-75) Lymphocytes % (Manual) 6 % (20-45) Monocytes % (Manual) 4 % (1-10) Eosinophils % (Manual) 1 % (0-3) Basophils % (Manual) 0 % (0-2) Band Neutrophils 0 % (0-8) Platelet Estimate Adequate Platelet Morphology Normal Red Blood Cell Morphology Normal Sodium Level 136 MMOL/L (136-145) Potassium Level 4.5 MMOL/L (3.5-5.1) Chloride Level 102 MMOL/L (98-107) Carbon Dioxide Level 22 MMOL/L (21-32) Anion Gap 12 mmol/L (5-15) Blood Urea Nitrogen 12 mg/dL (7-18) Creatinine 0.9 MG/DL (0.55-1.30) Estimat Glomerular Filtration Rate > 60 mL/min (>60) Glucose Level 161 MG/DL (74-106) Calcium Level 9.1 MG/DL (8.5-10.1) Phosphorus Level 3.6 MG/DL (2.5-4.9) Magnesium Level 1.9 MG/DL (1.8-2.4) Total Bilirubin 0.7 MG/DL (0.2-1.0) Aspartate Amino Transf (AST/SGOT) 15 U/L (15-37) Alanine Aminotransferase (ALT/SGPT) 11 U/L (12-78) Alkaline Phosphatase 81 U/L (46-116) Total Creatine Kinase 25 U/L (26-308) Creatine Kinase MB 1.2 NG/ML (0.0-3.6) Creatine Kinase MB Relative Index 4.8 Troponin I 0.027 ng/mL (0.000-0.056) Pro-B-Type Natriuretic Peptide 1346 pg/mL (0-125) Total Protein 8.5 G/DL (6.4-8.2) Albumin 2.9 G/DL (3.4-5.0) Globulin 5.6 g/dL Albumin/Globulin Ratio 0.5 (1.0-2.7) Urine Color Yellow Urine Appearance Clear Urine pH 6.5 (4.5-8.0) Urine Specific [place] 1.010 (1.005-1.035) Urine Protein 2+ (NEGATIVE) Urine Glucose (UA) Negative (NEGATIVE) Urine Ketones 1+ (NEGATIVE) Urine Blood 4+ (NEGATIVE) Urine Nitrite Negative (NEGATIVE) Urine Bilirubin Negative (NEGATIVE) Urine Urobilinogen Normal MG/DL (0.0-1.0) Urine Leukocyte Esterase 1+ (NEGATIVE) Urine RBC 20-30 /HPF (0 - 0) Urine WBC 0-2 /HPF (0 - 0) Urine Squamous Epithelial Cells Occasional /LPF Urine Bacteria Occasional /HPF (NONE) Lactic Acid Level 1.60 mmol/L (0.66-2.22) EKG Diagnostic Results Rate: tachycardiac Rhythm: NSR ST Segments: no acute changes Last Vital Signs Date Time Temp Pulse Resp B/P (MAP) Pulse Ox O2 Delivery O2 Flow Rate FiO2 06/26/19 13:10 84 28 100 Nasal Cannula 3.0 32 88 32 99 06/26/19 12:04 90/50 06/26/19 10:51 97.3 Status: unchanged Disposition: ADMITTED INPATIENT Condition: Stable Referrals: Pantera Benítez MD (PCP) Gene Portillo MD Jun 26, 2019 14:13
--- NOTE | 2019-06-26 14:51 | Diagnostic Imaging Report ---
. Indication: Cough, shortness of breath Technique: One view of the chest Comparison: 11/22/2016 Findings: There is diffuse bilateral interstitial disease, equivocally slightly more prominent than on prior exam although this could be an artifact of different exposure technique. There is suggestion of the left pleural effusion. The heart size is normal. Right hemidiaphragm is scalloped. Patient is rotated to the right. Impression: Interstitial disease, appearing somewhat more prominent than on prior study of 11/22/2016. Findings may reflect acute interstitial edema, progressive interstitial fibrosis, or combination of both. Correlate with clinical history and findings. Suspect small left pleural effusion
--- NOTE | 2019-06-26 15:01 | Infectious Diseases Prog Note ---
Assessment/Plan Problems: (1) Aspiration pneumonia Assessment & Plan: will start him on meropenem and vancomycin empirically and send sputum culture, since recieved zosyn in the past on multiple occasions and was recently on cefepime . aspiration precaution . swallow eval (2) Sepsis Assessment & Plan: due to the above, will start meropenem and vancomycin empirically pending blood culture (3) Dehydration Assessment & Plan: with vomiting , continue ivf for hydration, monitor lytes (4) Respiratory tract congestion with cough Assessment & Plan: due to the above, supportive care and inhalers as needed (5) Acute encephalopathy Assessment & Plan: due to the above, continue antibiotics hydration , aspiration precaution Subjective Allergies: Coded Allergies: No Known Allergies (Unverified , 04/23/12) Objective Vital Signs Last 24 Hour Vital Signs Date Time Temp Pulse Resp B/P (MAP) Pulse Ox O2 Delivery O2 Flow Rate FiO2 06/26/19 14:05 98.9 87 20 103/54 100 Nasal Cannula 2.0 06/26/19 13:10 84 28 100 Nasal Cannula 3.0 32 88 32 99 06/26/19 12:55 87 26 Nasal Cannula 3.0 32 06/26/19 12:04 24 90/50 98 Nasal Cannula 2.0 06/26/19 10:51 97.3 110 30 100/57 96 Nasal Cannula 2.0 06/26/19 10:46 97.3 110 24 87/55 (66) 93 Nasal Cannula 3.0 Height (Feet): 5 Height (Inches): 8.00 Weight (Pounds): 160 Microbiology Date/Time Source Procedure Growth Status 06/26/19 11:30 Nasal Nares - Final Complete 06/26/19 11:30 Nasal Nares - Final Complete 06/26/19 12:30 Rectum Received Laboratory Tests Test 06/26/19 11:30 06/26/19 11:57 06/26/19 12:20 White Blood Count 19.0 K/UL (4.8-10.8) H Red Blood Count 3.76 M/UL (4.70-6.10) L Hemoglobin 11.6 G/DL (14.2-18.0) L Hematocrit 34.8 % (42.0-52.0) L Mean Corpuscular Volume 92 FL (80-99) Mean Corpuscular Hemoglobin 31.0 PG (27.0-31.0) Mean Corpuscular Hemoglobin Concent 33.5 G/DL (32.0-36.0) Red Cell Distribution Width 13.2 % (11.6-14.8) Platelet Count 319 K/UL (150-450) Mean Platelet Volume 5.7 FL (6.5-10.1) L Neutrophils (%) (Auto) % (45.0-75.0) Lymphocytes (%) (Auto) % (20.0-45.0) Monocytes (%) (Auto) % (1.0-10.0) Eosinophils (%) (Auto) % (0.0-3.0) Basophils (%) (Auto) % (0.0-2.0) Differential Total Cells Counted 100 Neutrophils % (Manual) 89 % (45-75) H Lymphocytes % (Manual) 6 % (20-45) L Monocytes % (Manual) 4 % (1-10) Eosinophils % (Manual) 1 % (0-3) Basophils % (Manual) 0 % (0-2) Band Neutrophils 0 % (0-8) Platelet Estimate Adequate Platelet Morphology Normal Red Blood Cell Morphology Normal Sodium Level 136 MMOL/L (136-145) Potassium Level 4.5 MMOL/L (3.5-5.1) Chloride Level 102 MMOL/L (98-107) Carbon Dioxide Level 22 MMOL/L (21-32) Anion Gap 12 mmol/L (5-15) Blood Urea Nitrogen 12 mg/dL (7-18) Creatinine 0.9 MG/DL (0.55-1.30) Estimat Glomerular Filtration Rate > 60 mL/min (>60) Glucose Level 161 MG/DL (74-106) H Lactic Acid Level 2.10 mmol/L (0.4-2.0) H 1.60 mmol/L (0.66-2.22) Calcium Level 9.1 MG/DL (8.5-10.1) Phosphorus Level 3.6 MG/DL (2.5-4.9) Magnesium Level 1.9 MG/DL (1.8-2.4) Total Bilirubin 0.7 MG/DL (0.2-1.0) Aspartate Amino Transf (AST/SGOT) 15 U/L (15-37) Alanine Aminotransferase (ALT/SGPT) 11 U/L (12-78) L Alkaline Phosphatase 81 U/L (46-116) Total Creatine Kinase 25 U/L (26-308) L Creatine Kinase MB 1.2 NG/ML (0.0-3.6) Creatine Kinase MB Relative Index 4.8 Troponin I 0.027 ng/mL (0.000-0.056) Pro-B-Type Natriuretic Peptide 1346 pg/mL (0-125) H Total Protein 8.5 G/DL (6.4-8.2) H Albumin 2.9 G/DL (3.4-5.0) L Globulin 5.6 g/dL Albumin/Globulin Ratio 0.5 (1.0-2.7) L Urine Color Yellow Urine Appearance Clear Urine pH 6.5 (4.5-8.0) Urine Specific [place] 1.010 (1.005-1.035) Urine Protein 2+ (NEGATIVE) H Urine Glucose (UA) Negative (NEGATIVE) Urine Ketones 1+ (NEGATIVE) H Urine Blood 4+ (NEGATIVE) H Urine Nitrite Negative (NEGATIVE) Urine Bilirubin Negative (NEGATIVE) Urine Urobilinogen Normal MG/DL (0.0-1.0) Urine Leukocyte Esterase 1+ (NEGATIVE) H Urine RBC 20-30 /HPF (0 - 0) H Urine WBC 0-2 /HPF (0 - 0) Urine Squamous Epithelial Cells Occasional /LPF Urine Bacteria Occasional /HPF (NONE) Bety Saini M.D. Jun 26, 2019 15:01
[2019-06-26] MEDS ORDERED: Meropenem 1gm/NS 110ml IVPB SCH ×2 (15:45)
[2019-06-26 16:05] VITALS: BP 90/55
--- NOTE | 2019-06-26 16:40 | NUR ---
ED Nurse Note: REPORT GIVEN TO ALISIA GRAY OF [facility].
--- NOTE | 2019-06-26 16:56 | NUR ---
ED Nurse Note: PT TRANSFERRED TO [facility]IA [facility] WITH ALL HIS BELONGINGS SENT WITH HIM.
--- NOTE | 2019-06-26 17:00 | NUR ---
NURSE NOTES: Received report from GLORIA Oliver RN. Pt A/Ox1, speaks Farsi only. Pt on 2L NC, O2 sat 95%. Pt remains in position, elevated the head to 30 degrees. Redness on sacrum, no open wounds. Pt belongings checked. Pt on tele monitor. Vital signs checked: BP 98/45, HR 89, Temp 98.6F, RR 20. IV site on L AC 20g patent and asymptomatic. Bed on lowest position, call light within reach. Will continue to monitor.
--- NOTE | 2019-06-26 17:07 | General Progress Note ---
Subjective Date patient seen: Jun 26, 2019 Time patient seen: 16:45 Allergies: Coded Allergies: No Known Allergies (Unverified , 04/23/12) Subjective Patient was seen and examined in ER. Full dictation to follow. Objective Last 24 Hour Vital Signs Date Time Temp Pulse Resp B/P (MAP) Pulse Ox O2 Delivery O2 Flow Rate FiO2 06/26/19 16:05 98.2 78 16 90/55 99 Nasal Cannula 2.0 06/26/19 14:05 98.9 87 20 103/54 100 Nasal Cannula 2.0 06/26/19 13:10 84 28 100 Nasal Cannula 3.0 32 88 32 99 06/26/19 12:55 87 26 Nasal Cannula 3.0 32 06/26/19 12:04 24 90/50 98 Nasal Cannula 2.0 06/26/19 10:51 97.3 110 30 100/57 96 Nasal Cannula 2.0 06/26/19 10:46 97.3 110 24 87/55 (66) 93 Nasal Cannula 3.0 Laboratory Tests 06/26/19 11:30: White Blood Count 19.0H, Red Blood Count 3.76L, Hemoglobin 11.6L, Hematocrit 34.8L, Mean Corpuscular Volume 92, Mean Corpuscular Hemoglobin 31.0, Mean Corpuscular Hemoglobin Concent 33.5, Red Cell Distribution Width 13.2, Platelet Count 319, Mean Platelet Volume 5.7L, Neutrophils (%) (Auto) , Lymphocytes (%) ( Auto) , Monocytes (%) (Auto) , Eosinophils (%) (Auto) , Basophils (%) (Auto) , Differential Total Cells Counted 100, Neutrophils % (Manual) 89H, Lymphocytes % (Manual) 6L, Monocytes % (Manual) 4, Eosinophils % (Manual) 1, Basophils % ( Manual) 0, Band Neutrophils 0, Platelet Estimate Adequate, Platelet Morphology Normal, Red Blood Cell Morphology Normal, Sodium Level 136, Potassium Level 4.5 , Chloride Level 102, Carbon Dioxide Level 22, Anion Gap 12, Blood Urea Nitrogen 12, Creatinine 0.9, Estimat Glomerular Filtration Rate > 60, Glucose Level 161H, Lactic Acid Level 2.10H, Calcium Level 9.1, Phosphorus Level 3.6, Magnesium Level 1.9, Total Bilirubin 0.7, Aspartate Amino Transf (AST/SGOT) 15, Alanine Aminotransferase (ALT/SGPT) 11L, Alkaline Phosphatase 81, Total Creatine Kinase 25L, Creatine Kinase MB 1.2, Creatine Kinase MB Relative Index 4.8, Troponin I 0.027, Pro-B-Type Natriuretic Peptide 1346H, Total Protein 8.5H , Albumin 2.9L, Globulin 5.6, Albumin/Globulin Ratio 0.5L 06/26/19 11:57: Urine Color Yellow, Urine Appearance Clear, Urine pH 6.5, Urine Specific [place] 1.010, Urine Protein 2+H, Urine Glucose (UA) Negative, Urine Ketones 1+H , Urine Blood 4+H, Urine Nitrite Negative, Urine Bilirubin Negative, Urine Urobilinogen Normal, Urine Leukocyte Esterase 1+H, Urine RBC 20-30H, Urine WBC 0 -2, Urine Squamous Epithelial Cells Occasional, Urine Bacteria Occasional 06/26/19 12:20: Lactic Acid Level 1.60 Height (Feet): 5 Height (Inches): 8.00 Weight (Pounds): 160 Pantera Benítez MD Jun 26, 2019 17:07
--- NOTE | 2019-06-26 17:33 | NUR ---
CASE MANAGEMENT: INITIAL REVIEW 89 YO M AMELIA FROM [facility] CC: PALPITATIONS PMHx: COPD. DEMENTIA. SI:PNA. T 97.3 HR 110 RR 24 B/P 87/55 SATS 93% ON 3L/NC LABS: WBC 19 GLU 161 AST 11 TOTAL CK 25 BNP 1346 IS: NS BOLUS X1 VANCO IV X1 CEFEPIME IV X1 CXR Suspect small left pleural effusion PATIENT ADMITTED TO MED/SURG 06/26/2019 @ 1204 DCP: PATIENT TO BE DISCHARGED TO SNF ONCE MEDICALLY CLEARED. PLAN OF CARE: ID CONSULT INTERQUAL MET
--- NOTE | 2019-06-26 18:01 | Consultation ---
DATE OF CONSULTATION: 06/26/2019 INFECTIOUS DISEASE CONSULTATION CONSULTING PHYSICIAN: Bety Saini M.D. REFERRING PHYSICIAN: Pantera Benítez M.D. REASON FOR CONSULTATION: Pneumonia, sepsis, and leukocytosis in a patient who has been on antibiotics. Treatment recommendation for antibiotics treatment and further care. HISTORY OF PRESENT ILLNESS: The patient is an 89-year-old male Farsi speaker with past medical history of COPD, dementia, and cancer, was sent to [facility] emergency room for increased coughing, congestion, and difficulty breathing. Apparently, the patient was recently diagnosed with pneumonia and was [facility] by his primary care for provider. He has vomited and possibly aspirated, became short of breath, more congested and having more cough. The patient has baseline dementia, could not provide any history, so he was sent to the emergency room for evaluation. In the ER, his temperature was 97.3 with pulse of 110, blood pressure of 87/55, and hypoxemia with O2 saturation of 93% on 3 L, which was concerning for sepsis and pneumonia. The patient looked critically ill, so he was given vancomycin and cefepime in the emergency room. His white count was found to be 19 or so thousand suggestive of sepsis, so Infectious Disease consultation was requested for antibiotics treatment and further management. As of note, the patient is poor historian and cannot provide any history. Most details were obtained from the medical record. REVIEW OF SYSTEMS: Unable to obtain apart from the one I mentioned above. The patient is poor historian. PAST MEDICAL HISTORY: Significant for COPD, cancer, and dementia. PAST SURGICAL HISTORY: Negative. Not on record. FAMILY HISTORY: Unable to obtain. SOCIAL HISTORY: The [facility]. He is retired. No recent drugs, tobacco, or alcohol abuse. ALLERGIES: No known drug allergies. MEDICATIONS: The patient received vancomycin and cefepime in the ER. For the rest of his medications, please refer to JUL. PHYSICAL EXAMINATION: VITAL SIGNS: Temperature 97.3, pulse 84, respirations 32, and blood pressure 90/50. Pulse oximetry 99% on 3 L nasal cannula. GENERAL: An elderly male lying in bed, awake, alert, cachectic, confused, speaking in Farsi, not agitated, not in acute distress. Does not follow commands. HEENT: Normocephalic and atraumatic. Pupils are reactive to light equal. Pale sclerae. Moist oral mucosa. No exudate, thrush, or ulceration. NECK: Supple. No lymphadenopathy. CARDIOVASCULAR: He was tachycardic. S1, S2 normal. No gallop. LUNGS: He had crackles and rhonchi diffusely. Diminished breathing sounds at the bases. No wheezing. Normal breathing efforts. ABDOMEN: Soft, nontender, and nondistended. Normal bowel sounds. No hepatosplenomegaly or ascites. EXTREMITIES: No edema or cyanosis. SKIN: No rash. No hives. LABORATORY DATA: Showed white count of 19,000, hemoglobin of 11.6, and platelet count of 319,000. BUN of 12, creatinine of 0.9. AST of 15, ALT of 11. Lactic acid of 2.1. Urinalysis showed +4 blood, +1 ketones, +2 protein, and 2 white cell count. Microbiology - influenza screening A and B both negative. ASSESSMENT AND RECOMMENDATION: 1. Aspiration pneumonia with bilateral lungs infiltration. We will start the patient on meropenem and vancomycin empiric coverage for now. Send sputum culture. The patient received Zosyn in the past on multiple occasions and he was recently on cefepime, so we will avoid using those for now. Aspiration precaution and swallow evaluation. 2. Sepsis with leukocytosis, suspect due to the above. We will start meropenem and vancomycin empiric treatment pending blood culture. We will deescalate antibiotics based on the results. 3. Dehydration with vomiting. Continue IV fluid for hydration. Monitor electrolytes, replace as needed. 4. Respiratory distress with congestion and cough, suspect due to the above. Continue supportive care, inhalers, and antibiotics. 5. Acute encephalopathy due to the above. Continue antibiotics, hydration, aspiration precaution. Avoid sedatives Thank you for the consult. ID will continue to follow. Bety Saini M.D. DR: BRANDEN JOB#: [id number] CC:
--- NOTE | 2019-06-26 18:40 | NUR ---
NURSE NOTES: Meropenem IV due at 1800, med not in med room. Called pharmacy and made them aware.
[2019-06-26] MEDS: HYDROcodone/Acetamin 5/325 tab ORAL PRN (19:17)
[2019-06-26] MEDS: Meropenem 1 GM in NS 55 ML IVPB SCH (19:18)
[2019-06-26 19:32] LABS: BASOPHILS % (AUTO) 0.5 % (0.0-2.0); HEMATOCRIT 29.4 % (42.0-52.0); HEMOGLOBIN 9.5 G/DL (14.2-18.0); LYMPHOCYTES % (AUTO) 9.5 % (20.0-45.0); MEAN CORPUSCULAR VOLUME 96 FL (80-99); MONOCYTES % (AUTO) 5.4 % (1.0-10.0); NEUTROPHILS % (AUTO) 83.6 % (45.0-75.0); PLATELET COUNT 285 K/UL (150-450); RED BLOOD COUNT 3.05 M/UL (4.70-6.10); RED CELL DISTRIBUTION WIDTH 14.4 % (11.6-14.8); WHITE BLOOD COUNT 14.6 K/UL (4.8-10.8)
--- NOTE | 2019-06-26 19:32 | NUR ---
NURSE NOTES: Received pt from MARINA Will. Pt is awake and resting in bed in no acute distress, with HOB elevated. Iv sites intact. pt on 2 L nasal cannula support, saturating >90%. Blood tinged tip of penis noted. Bed locked in lowest position, bed alarm on, call light within reach, will continue with plan of care.
[2019-06-26 20:00] VITALS: BP 109/49
--- NOTE | 2019-06-26 20:22 | NUR ---
HAND-OFF: Report given to MARINA Howell. Pt in stable condition. Endorsed plan of care.
[2019-06-26] MEDS: Albuterol/Ipratropium 3ml neb HHN SCH (20:28)
--- NOTE | 2019-06-26 20:30 | History and Physical Report ---
DATE OF ADMISSION: 06/26/2019 CHIEF COMPLAINT: Nausea, vomiting, and shortness of breath at the rehab. HISTORY OF PRESENT ILLNESS: This is an 89-year-old [place] male with a past medical history of dementia, hypertension, depression, BPH, and chronic pain syndrome who came in from [facility] for complaint of nausea and vomiting last night and this morning and shortness of breath. The patient was recently diagnosed with pneumonia at the rehab and was started on cefepime and doxycycline, but this morning, he vomited and his O2 saturation dropped and the patient was transferred to the hospital at [facility] for evaluation. The patient has history of recurrent pneumonia in the past two to four months and was treated with Zosyn and on last episode with cefepime and doxycycline. PAST MEDICAL HISTORY: Include history of hypertension, hyperlipidemia, dementia, GERD, constipation, and BPH. PAST SURGICAL HISTORY: Negative. MEDICATIONS: Please review the pain medication brought in from [facility]. ALLERGIES: No known drug allergies. FAMILY HISTORY: Noncontributory. REVIEW OF SYSTEMS: Negative except for HPI. PHYSICAL EXAMINATION: VITAL SIGNS: Includes a temperature 97.3, pulse 110, respiration 24, blood pressure 87/55, pulse ox 93% with 3 L of nasal cannula. GENERAL APPEARANCE: He is alert, but slightly confused. HEENT: Normocephalic and normochromic. Extraocular muscles ARE intact. Throat is clear. NECK: Supple. No lymphadenopathy. LUNGS: Shows rhonchi bilaterally with slight expiratory wheezing CARDIOVASCULAR: Regular rhythm, but slightly tachycardic. GASTROINTESTINAL: Soft, nontender, nondistended. Positive bowel sounds except for light suprapubic tenderness. GENITOURINARY: No CVA tenderness. NEUROLOGICAL: Alert and responds to commands. LABORATORY AND DIAGNOSTIC DATA: Reviewed. Urine shows +4 blood, +1 ketones, +2 protein, +1 leukocyte esterase, rbc's, 0 to 2 wbc's, occasional bacteria, and occasional squamous epithelial cells. Sodium 136, potassium 4.5, chloride 102, bicarb 22, BUN 12, creatinine 0.9, glucose 151. Lactic acid is 3.1. Calcium 9.1, magnesium 3.6, phosphorus 7.9. AST 15, ALT 11, alkaline phosphatase 31. Total creatine kinase is 25, BNP is 1346. Troponin 0.027. Albumin is 2.9. WBC 19.0, hemoglobin 11.6, hematocrit 34.8, platelet count 319,000, neutrophils 89, lymphocytes 6. IMPRESSION: 1. Aspiration pneumonia. We will start the patient on vancomycin and meropenem. We will have ID see the patient as well. Aspiration precautions. 2. Sepsis due to aspiration pneumonia. We will again start the patient on IV antibiotic with vancomycin and meropenem. 3. Dehydration. We will have the patient on IV fluid. 4. Dementia. We will restart the patient's home medication for dementia. 5. BPH. Again, we will restart the patient back on home medications. Also, GERD and gastritis. We will start the patient on Protonix 40 mg IV daily. 6. History of chronic pain syndrome. We will start the patient on home medications, which is [place] q.6 h. p.r.n. 7. Depression. We will again restart on Lexapro 10 mg at bedtime. 8. Hyperlipidemia. 9. Diabetes mellitus type 2. We will restart home medicine, Januvia 100 mg daily. The patient will be admitted for minimum of two-night stay for the diagnosis of aspiration pneumonia and sepsis. Pantera Benítez M.D. DR: PREETI JOB#: [id number] CC: MOODY
[2019-06-26] MEDS: Heparin 5000 units/ml inj SUBQ SCH (21:00)
[2019-06-26 21:35] LABS: ANION GAP 12 mmol/L (5-15); BLOOD UREA NITROGEN 14 mg/dL (7-18); CALCIUM 8.8 MG/DL (8.5-10.1); CARBON DIOXIDE 19 MMOL/L (21-32); CHLORIDE 106 MMOL/L (98-107); CREATININE 0.7 MG/DL (0.55-1.30); POTASSIUM 4.2 MMOL/L (3.5-5.1); SODIUM 137 MMOL/L (136-145)
[2019-06-26] MEDS: Pantoprazole Inj IVP SCH (22:31)
[2019-06-26] MEDS: TraZODone 50mg tab ORAL SCH (22:31)
[2019-06-26] MEDS: Tamsulosin 0.4mg cap ORAL SCH (22:31)
[2019-06-26] MEDS: Vancomycin 500 MG in NS 110 ML IVPB SCH (23:23)
[2019-06-27] VITALS: BP 105/53
[2019-06-27] MEDS: HYDROcodone/Acetamin 5/325 tab ORAL PRN ×2 (01:00→18:52)
[2019-06-27] MEDS: Meropenem 1 GM in NS 55 ML IVPB SCH ×3 (02:00→18:53)
[2019-06-27] MEDS: Albuterol/Ipratropium 3ml neb HHN SCH ×4 (02:06→19:35)
[2019-06-27 04:00] VITALS: BP 101/47
[2019-06-27 07:29] LABS: BASOPHILS % (AUTO) 0.3 % (0.0-2.0); EOSINOPHILS % (AUTO) 1.5 % (0.0-3.0); HEMATOCRIT 29.4 % (42.0-52.0); HEMOGLOBIN 9.9 G/DL (14.2-18.0); LYMPHOCYTES % (AUTO) 9.9 % (20.0-45.0); MEAN CORPUSCULAR VOLUME 93 FL (80-99); MONOCYTES % (AUTO) 6.6 % (1.0-10.0); NEUTROPHILS % (AUTO) 81.7 % (45.0-75.0); PLATELET COUNT 266 K/UL (150-450); RED BLOOD COUNT 3.15 M/UL (4.70-6.10); RED CELL DISTRIBUTION WIDTH 13.2 % (11.6-14.8); WHITE BLOOD COUNT 14.3 K/UL (4.8-10.8)
[2019-06-27 08:00] VITALS: BP 101/70
[2019-06-27 08:06] LABS: ANION GAP 10 mmol/L (5-15); BLOOD UREA NITROGEN 12 mg/dL (7-18); CALCIUM 8.6 MG/DL (8.5-10.1); CARBON DIOXIDE 23 MMOL/L (21-32); CHLORIDE 107 MMOL/L (98-107); CREATININE 0.8 MG/DL (0.55-1.30); POTASSIUM 4.4 MMOL/L (3.5-5.1); SODIUM 140 MMOL/L (136-145)
[2019-06-27] MEDS: Atenolol 25mg tab ORAL SCH (09:00)
[2019-06-27] MEDS: Heparin 5000 units/ml inj SUBQ SCH ×2 (09:00→21:00)
[2019-06-27] MEDS ORDERED: Exelon 1.5mg cap ORAL SCH (09:00)
--- NOTE | 2019-06-27 09:11 | General Progress Note ---
Assessment/Plan Status: stable Assessment/Plan: 1. Asp Pneumonia - cont IV abx. 2. Sepsis - cont IV abx. 3. Dehydration - cont IV hydration 4. Elevated Troponin 2nd to Demand Ischemia 2nd to sepsis. 5. Dementia - cont home meds. 6. BPH - cont home meds. 7. chronic pain syndrome 8. Depression - cont home meds. 9. DM II - cont home meds. Subjective Date patient seen: Jun 27, 2019 Time patient seen: 09:00 Constitutional: Reports: no symptoms HEENT: Reports: no symptoms Cardiovascular: Reports: no symptoms Respiratory: Reports: shortness of breath Gastrointestinal/Abdominal: Reports: no symptoms Genitourinary: Reports: no symptoms Neurologic/Psychiatric: Reports: no symptoms Endocrine: Reports: no symptoms Hematologic/Lymphatic: Reports: no symptoms Allergies: Coded Allergies: No Known Allergies (Unverified , 04/23/12) Subjective This morning patient is doing better. No fever or chills. No nausea or vomiting. afebrile. Objective Last 24 Hour Vital Signs Date Time Temp Pulse Resp B/P (MAP) Pulse Ox O2 Delivery O2 Flow Rate FiO2 06/27/19 08:21 106 20 93 Nasal Cannula 4.0 36 86 20 93 06/27/19 04:00 97.7 84 18 101/47 (65) 95 06/27/19 04:00 84 06/27/19 02:07 95 20 98 Nasal Cannula 4.0 36 98 20 93 06/27/19 00:00 98.4 88 18 105/53 (70) 94 06/27/19 00:00 88 06/26/19 21:00 Nasal Cannula 2.0 06/26/19 20:28 83 20 99 Nasal Cannula 4.0 36 80 20 95 06/26/19 20:00 98.2 83 18 109/49 (69) 98 06/26/19 20:00 83 06/26/19 19:47 98.2 06/26/19 19:08 Nasal Cannula 2.0 06/26/19 16:56 98.2 89 15 92/56 100 Nasal Cannula 2.0 06/26/19 16:05 98.2 78 16 90/55 99 Nasal Cannula 2.0 06/26/19 14:05 98.9 87 20 103/54 100 Nasal Cannula 2.0 06/26/19 13:10 84 28 100 Nasal Cannula 3.0 32 88 32 99 06/26/19 12:55 87 26 Nasal Cannula 3.0 32 06/26/19 12:04 24 90/50 98 Nasal Cannula 2.0 06/26/19 10:51 97.3 110 30 100/57 96 Nasal Cannula 2.0 06/26/19 10:46 97.3 110 24 87/55 (66) 93 Nasal Cannula 3.0 Intake and Output 06/26/19 06/27/19 19:00 07:00 Intake Total 1385.0 ml Balance 1385.0 ml Intake IV Total 1385.0 ml # Voids 1 2 Laboratory Tests 06/26/19 11:30: White Blood Count 19.0H, Red Blood Count 3.76L, Hemoglobin 11.6L, Hematocrit 34.8L, Mean Corpuscular Volume 92, Mean Corpuscular Hemoglobin 31.0, Mean Corpuscular Hemoglobin Concent 33.5, Red Cell Distribution Width 13.2, Platelet Count 319, Mean Platelet Volume 5.7L, Neutrophils (%) (Auto) , Lymphocytes (%) ( Auto) , Monocytes (%) (Auto) , Eosinophils (%) (Auto) , Basophils (%) (Auto) , Differential Total Cells Counted 100, Neutrophils % (Manual) 89H, Lymphocytes % (Manual) 6L, Monocytes % (Manual) 4, Eosinophils % (Manual) 1, Basophils % ( Manual) 0, Band Neutrophils 0, Platelet Estimate Adequate, Platelet Morphology Normal, Red Blood Cell Morphology Normal, Sodium Level 136, Potassium Level 4.5 , Chloride Level 102, Carbon Dioxide Level 22, Anion Gap 12, Blood Urea Nitrogen 12, Creatinine 0.9, Estimat Glomerular Filtration Rate > 60, Glucose Level 161H, Lactic Acid Level 2.10H, Calcium Level 9.1, Phosphorus Level 3.6, Magnesium Level 1.9, Total Bilirubin 0.7, Aspartate Amino Transf (AST/SGOT) 15, Alanine Aminotransferase (ALT/SGPT) 11L, Alkaline Phosphatase 81, Total Creatine Kinase 25L, Creatine Kinase MB 1.2, Creatine Kinase MB Relative Index 4.8, Troponin I 0.027, Pro-B-Type Natriuretic Peptide 1346H, Total Protein 8.5H , Albumin 2.9L, Globulin 5.6, Albumin/Globulin Ratio 0.5L 06/26/19 11:57: Urine Color Yellow, Urine Appearance Clear, Urine pH 6.5, Urine Specific Ovalo 1.010, Urine Protein 2+H, Urine Glucose (UA) Negative, Urine Ketones 1+H , Urine Blood 4+H, Urine Nitrite Negative, Urine Bilirubin Negative, Urine Urobilinogen Normal, Urine Leukocyte Esterase 1+H, Urine RBC 20-30H, Urine WBC 0 -2, Urine Squamous Epithelial Cells Occasional, Urine Bacteria Occasional 06/26/19 12:20: Lactic Acid Level 1.60 06/26/19 19:10: White Blood Count 14.6H, Red Blood Count 3.05L, Hemoglobin 9.5L, Hematocrit 29.4L, Mean Corpuscular Volume 96, Mean Corpuscular Hemoglobin 31.2H, Mean Corpuscular Hemoglobin Concent 32.3, Red Cell Distribution Width 14.4, Platelet Count 285, Mean Platelet Volume 6.3L, Neutrophils (%) (Auto) 83.6H, Lymphocytes (%) (Auto) 9.5L, Monocytes (%) (Auto) 5.4, Eosinophils (%) (Auto) 1.0, Basophils (%) (Auto) 0.5, Sodium Level 137, Potassium Level 4.2, Chloride Level 106, Carbon Dioxide Level 19L, Anion Gap 12, Blood Urea Nitrogen 14, Creatinine 0.7, Estimat Glomerular Filtration Rate > 60, Glucose Level 114H, Calcium Level 8.8, Troponin I 0.051, Pro-B-Type Natriuretic Peptide 3207H 06/27/19 05:35: White Blood Count 14.3H, Red Blood Count 3.15L, Hemoglobin 9.9L, Hematocrit 29.4L, Mean Corpuscular Volume 93, Mean Corpuscular Hemoglobin 31.5H, Mean Corpuscular Hemoglobin Concent 33.8, Red Cell Distribution Width 13.2, Platelet Count 266, Mean Platelet Volume 5.4L, Neutrophils (%) (Auto) 81.7H, Lymphocytes (%) (Auto) 9.9L, Monocytes (%) (Auto) 6.6, Eosinophils (%) (Auto) 1.5, Basophils (%) (Auto) 0.3, Sodium Level 140, Potassium Level 4.4, Chloride Level 107, Carbon Dioxide Level 23, Anion Gap 10, Blood Urea Nitrogen 12, Creatinine 0.8, Estimat Glomerular Filtration Rate > 60, Glucose Level 91, Calcium Level 8.6, Troponin I 0.064H, Pro-B-Type Natriuretic Peptide 3267H Height (Feet): 5 Height (Inches): 7.00 Weight (Pounds): 99 General Appearance: no apparent distress, alert Neck: non-tender, supple Cardiovascular: normal peripheral pulses, normal rate, regular rhythm Respiratory/Chest: normal breath sounds, no respiratory distress Abdomen: non tender, soft Extremities: non-tender Neurologic: alert, responsive Skin: warm/dry Pantera Benítez MD Jun 27, 2019 09:11
[2019-06-27] MEDS: Pantoprazole Inj IVP SCH (10:06)
[2019-06-27] MEDS: Aspirin EC 81mg tab ORAL SCH (10:08)
[2019-06-27] MEDS: Memantine 10mg tab ORAL SCH ×2 (10:08→18:52)
[2019-06-27] MEDS: Miralax 17gm pkt ORAL SCH (10:11)
[2019-06-27] MEDS: Vancomycin 500 MG in NS 110 ML IVPB SCH ×2 (11:00→23:00)
--- NOTE | 2019-06-27 11:42 | NUR ---
HAND-OFF: Report given to MARINA Moser. Pt is awake and resting in bed in no acute distress. Iv sites intact. Bed locked in lowest position, bed alarm on, call light within reach. Endorsed plan of care.
--- NOTE | 2019-06-27 11:55 | NUR ---
RD ASSESSMENT & RECOMMENDATIONS SEE CARE ACTIVITY FOR COMPLETE ASSESSMENT DAILY ESTIMATED NEEDS: Needs based on DM, 48kg 25-30 kcals/kg 1369-0463 total kcals 1-1.3 g protein/kg 48-64 g total protein 25-30 mL/kg 1007-0101 total fluid mLs NUTRITION DIAGNOSIS: Swallowing difficulty R/T dysphagia as evidenced by admitted w/ aspiration PNA, pt currently on pureed moist, NTL diet. CURRENT DIET:CARDIAC, pureed moist w/ NTL PO DIET RECOMMENDATIONS: CCHO LOW/ texture per DELI ASSOCIATE + Glucerna TID w/ meals ADDITIONAL RECOMMENDATIONS: * DELI ASSOCIATE eval for appropriate texture * CALIBRATED BED SCALE FOR EVAL * Monitor BGs, need for NISS - DM dx * Monitor PO intake and tolerance closely * MVI x 1 as supplement * Consider wound eval: sacral redness?
[2019-06-27 12:00] VITALS: BP 111/51
--- NOTE | 2019-06-27 14:31 | NUR ---
SPEECH PATHOLOGY/SWALLOW STATUS: BEDSIDE SWALLOW EVALUATION COMPLETED POST CHART REVIEW AND DISCUSSION WITH MARINA SANTILLAN. DYSPHAGIA RISK FACTORS FOR THIS 89 Y.O. MALE: HX OF RECURRING/ASPIRATION PNEUMONIA, DECREASED MENTATION/DEMENTIA, HX OF GERD, SHORTNESS OF BREATH HX OF O2 DESATURATION. PATIENT ALERT, AWAKE, NON/VERBAL WITH [place]/SPEAKING STAFF. CLINICIAN PREPARED TO PRESENT PATIENT WITH PUREE AND HONEY THICK LIQUID TRIALS UNTIL IT WAS NOTED THAT THE PATIENTS RESTING RESPIRATION RATE WAS AT 30 BPM WHICH CONTRAINDICATES P.O. DUE TO HIGH RISK FOR ASPIRATION DUE TO DIFFICULTY COORDINATING SWALLOWING AND BREATHING. CALLED, DISCUSSED RISKS WITH DR BENNETT WHO AGREED TO CONTACT AND D/W FAMILY RE: NON/ORAL FEEDING MANAGEMENT VS PALLIATIVE/COMFORT CENTERED CARE CONSULT. ST TO FOLLOW UP X 1 TO DETERMINE IF PATIENT SAFE FOR P.O. TRIALS.
[2019-06-27 16:00] VITALS: BP 133/71
--- NOTE | 2019-06-27 16:47 | NUR ---
CASE MANAGEMENT:REVIEW 06/27/19 SI: ASPIRATION PNA. SEPSIS 97.9 116 20 133/71 94% ON 3L/NC WBC+14.3 TROPONIN(+) 0.064 IS: IV VANCOMYCIN Q12 IV MEROPENEM Q8HRS IVF@50/HR IV PROTONIX QD HEPARIN SQ Q12 ASA PO QD ATENOLOL PO QD NAMENDA PO BID SPIRIVA INH QD JANUVIA PO QAM DUONEB HHN Q6HRS RTC : NOW ON TELEMETRY DCP:: FROM [facility]
--- NOTE | 2019-06-27 17:43 | Infectious Diseases Prog Note ---
Assessment/Plan Problems: (1) Aspiration pneumonia Assessment & Plan: continue meropenem and vancomycin empirically pending sputum culture . aspiration precaution . swallow eval (2) Sepsis Assessment & Plan: due to the above, continue meropenem and vancomycin empirically pending blood culture (3) Dehydration Assessment & Plan: with vomiting , continue ivf for hydration, monitor lytes (4) Respiratory tract congestion with cough Assessment & Plan: due to the above, supportive care and inhalers as needed (5) Acute encephalopathy Assessment & Plan: due to the above, continue antibiotics hydration , aspiration precaution Subjective ROS Limited/Unobtainable: Yes Allergies: Coded Allergies: No Known Allergies (Unverified , 04/23/12) Subjective He was more comfortable , breathing ok, no fever or chills, still congested with mild cough Objective Vital Signs Last 24 Hour Vital Signs Date Time Temp Pulse Resp B/P (MAP) Pulse Ox O2 Delivery O2 Flow Rate FiO2 06/27/19 16:00 97.9 116 20 133/71 (91) 94 06/27/19 13:22 104 17 93 Nasal Cannula 3.0 32 99 18 93 06/27/19 12:00 98.4 107 20 111/51 (71) 93 06/27/19 11:48 107 06/27/19 09:00 106 100/48 06/27/19 09:00 Nasal Cannula 2.0 06/27/19 08:21 106 20 93 Nasal Cannula 4.0 36 86 20 93 06/27/19 08:00 78 06/27/19 08:00 98.2 87 18 101/70 (80) 94 06/27/19 04:00 97.7 84 18 101/47 (65) 95 06/27/19 04:00 84 06/27/19 02:07 95 20 98 Nasal Cannula 4.0 36 98 20 93 06/27/19 00:00 98.4 88 18 105/53 (70) 94 06/27/19 00:00 88 06/26/19 21:00 Nasal Cannula 2.0 06/26/19 20:28 83 20 99 Nasal Cannula 4.0 36 80 20 95 06/26/19 20:00 98.2 83 18 109/49 (69) 98 06/26/19 20:00 83 06/26/19 19:47 98.2 06/26/19 19:08 Nasal Cannula 2.0 Height (Feet): 5 Height (Inches): 7.00 Weight (Pounds): 99 General Appearance: WD/WN, no acute distress HEENT: normocephalic, atraumatic, anicteric, mucous membranes moist, PERRL Respiratory/Chest: chest wall non-tender, no respiratory distress, no accessory muscle use, decreased breath sounds, crackles/rales Cardiovascular: normal peripheral pulses, normal rate, regular rhythm, no gallop/murmur, no JVD Abdomen: normal bowel sounds, soft, non tender, no organomegaly, non distended , no mass, no scars Genitourinary: normal external genitalia Extremities: no cyanosis, no clubbing Skin: no rash, no lesions, no ulcers Neurologic/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: 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, alert, responsive Lymphatic: no neck adenopathy, no groin adenopathy Musculoskeletal: normal muscle bulk, no effusion Microbiology Date/Time Source Procedure Growth Status 06/26/19 11:30 Nasal Nares - Final Complete 06/26/19 11:30 Nasal Nares - Final Complete 06/26/19 12:30 Rectum Received Laboratory Tests Test 06/26/19 19:10 06/27/19 05:35 White Blood Count 14.6 K/UL (4.8-10.8) H 14.3 K/UL (4.8-10.8) H Red Blood Count 3.05 M/UL (4.70-6.10) L 3.15 M/UL (4.70-6.10) L Hemoglobin 9.5 G/DL (14.2-18.0) L 9.9 G/DL (14.2-18.0) L Hematocrit 29.4 % (42.0-52.0) L 29.4 % (42.0-52.0) L Mean Corpuscular Volume 96 FL (80-99) 93 FL (80-99) Mean Corpuscular Hemoglobin 31.2 PG (27.0-31.0) H 31.5 PG (27.0-31.0) H Mean Corpuscular Hemoglobin Concent 32.3 G/DL (32.0-36.0) 33.8 G/DL (32.0-36.0) Red Cell Distribution Width 14.4 % (11.6-14.8) 13.2 % (11.6-14.8) Platelet Count 285 K/UL (150-450) 266 K/UL (150-450) Mean Platelet Volume 6.3 FL (6.5-10.1) L 5.4 FL (6.5-10.1) L Neutrophils (%) (Auto) 83.6 % (45.0-75.0) H 81.7 % (45.0-75.0) H Lymphocytes (%) (Auto) 9.5 % (20.0-45.0) L 9.9 % (20.0-45.0) L Monocytes (%) (Auto) 5.4 % (1.0-10.0) 6.6 % (1.0-10.0) Eosinophils (%) (Auto) 1.0 % (0.0-3.0) 1.5 % (0.0-3.0) Basophils (%) (Auto) 0.5 % (0.0-2.0) 0.3 % (0.0-2.0) Sodium Level 137 MMOL/L (136-145) 140 MMOL/L (136-145) Potassium Level 4.2 MMOL/L (3.5-5.1) 4.4 MMOL/L (3.5-5.1) Chloride Level 106 MMOL/L (98-107) 107 MMOL/L (98-107) Carbon Dioxide Level 19 MMOL/L (21-32) L 23 MMOL/L (21-32) Anion Gap 12 mmol/L (5-15) 10 mmol/L (5-15) Blood Urea Nitrogen 14 mg/dL (7-18) 12 mg/dL (7-18) Creatinine 0.7 MG/DL (0.55-1.30) 0.8 MG/DL (0.55-1.30) Estimat Glomerular Filtration Rate > 60 mL/min (>60) > 60 mL/min (>60) Glucose Level 114 MG/DL (74-106) H 91 MG/DL (74-106) Calcium Level 8.8 MG/DL (8.5-10.1) 8.6 MG/DL (8.5-10.1) Troponin I 0.051 ng/mL (0.000-0.056) 0.064 ng/mL (0.000-0.056) Pro-B-Type Natriuretic Peptide 3207 pg/mL (0-125) H 3267 pg/mL (0-125) H Current Medications Medications (Trade) Dose Ordered Sig/Chance Route PRN Reason Start Time Stop Time Status Last Admin Dose Admin Acetaminophen/ Hydrocodone Bitart ([place] 5/325) 1 tab Q6H PRN ORAL For Pain 06/26/19 18:15 07/03/19 18:14 06/27/19 01:00 Albuterol/ Ipratropium (Albuterol/ Ipratropium) 3 ml Q6HRT HHN 06/26/19 19:00 07/01/19 18:59 06/27/19 13:22 Aspirin (Ecotrin) 81 mg DAILY ORAL 06/27/19 09:00 07/27/19 08:59 06/27/19 10:08 Atenolol (Tenormin) 25 mg DAILY ORAL 06/27/19 09:00 07/27/19 08:59 Escitalopram Oxalate (Lexapro) 10 mg DAILY ORAL 06/27/19 09:00 07/27/19 08:59 06/27/19 10:08 Finasteride (Proscar) 5 mg QHS ORAL 06/26/19 21:00 07/26/19 20:59 06/26/19 22:31 Heparin Sodium (Porcine) (Heparin 5000 units/ml) 5,000 units EVERY 12 HOURS SUBQ 06/26/19 21:00 07/26/19 20:59 Memantine (Namenda) 10 mg BID ORAL 06/27/19 09:00 07/27/19 08:59 06/27/19 10:08 Meropenem 1 gm/ Sodium Chloride 55 ml @ 110 mls/hr Q8H IVPB 06/26/19 18:00 07/01/19 17:59 06/27/19 10:09 Pantoprazole (Protonix) 40 mg DAILY IVP 06/26/19 20:00 07/26/19 19:59 06/27/19 10:06 Polyethylene Glycol (Miralax) 17 gm DAILY ORAL 06/27/19 09:00 07/27/19 08:59 06/27/19 10:11 Sitagliptin Phosphate (Januvia) 100 mg ACBREAKFAST ORAL 06/27/19 06:30 07/27/19 06:29 06/27/19 06:45 Sodium Chloride 1,000 ml @ 50 mls/hr Q20H IV 06/26/19 20:00 07/26/19 19:59 06/26/19 19:27 Tamsulosin HCl (Flomax) 0.4 mg BEDTIME ORAL 06/26/19 21:00 07/26/19 20:59 06/26/19 22:31 Tiotropium Georg[place] (Spiriva Inhaler) 1 puff DAILY INH 06/27/19 09:00 07/27/19 08:59 06/27/19 11:09 Trazodone HCl (Desyrel) 50 mg QHS ORAL 06/26/19 21:00 07/26/19 20:59 06/26/19 22:31 Vancomycin HCl (Vanco rx to dose) 1 ea DAILY PRN MISC Per rx protocol 06/26/19 14:45 07/26/19 14:44 Vancomycin HCl 500 mg/Sodium Chloride 110 ml @ 110 mls/hr Q12HR@1100,2300 IVPB 06/26/19 23:00 07/01/19 22:59 06/27/19 11:00 Bety Saini M.D. Jun 27, 2019 17:43
[2019-06-27 20:00] VITALS: BP 125/62
[2019-06-27] MEDS: Tamsulosin 0.4mg cap ORAL SCH (21:00)
[2019-06-27] MEDS: TraZODone 50mg tab ORAL SCH (21:00)
[2019-06-28] VITALS: BP 130/71
[2019-06-28] MEDS: Albuterol/Ipratropium 3ml neb HHN SCH ×5 (01:00→19:27)
[2019-06-28] MEDS: Meropenem 1 GM in NS 55 ML IVPB SCH ×3 (02:00→18:00)
[2019-06-28 04:00] VITALS: BP 126/67
--- NOTE | 2019-06-28 07:30 | NUR ---
HAND-OFF: Report given to Radha GRAY.
--- NOTE | 2019-06-28 07:50 | NUR ---
NURSE NOTES: Received report from MARINA Philippe. Patient in bed resting, no active s/s cardiac, respiratory distress noticed at this time. Patient AOx0-1, on 2L oxygen via NC. ST with HR 101. IV on left AC 20G, asymptomatic, patent, intact. IV fluid running as prescribed rate. Bed in lowest position, side rails upx2, call light within reach. Will continue to monitor.
[2019-06-28 07:56] LABS: HEMATOCRIT 29.2 % (42.0-52.0); HEMOGLOBIN 10.2 G/DL (14.2-18.0); MEAN CORPUSCULAR VOLUME 92 FL (80-99); PLATELET COUNT 318 K/UL (150-450); RED BLOOD COUNT 3.17 M/UL (4.70-6.10); RED CELL DISTRIBUTION WIDTH 13.4 % (11.6-14.8); WHITE BLOOD COUNT 18.4 K/UL (4.8-10.8)
[2019-06-28 08:00] VITALS: BP 127/62
[2019-06-28 08:07] LABS: ANION GAP 10 mmol/L (5-15); BLOOD UREA NITROGEN 9 mg/dL (7-18); CALCIUM 8.8 MG/DL (8.5-10.1); CARBON DIOXIDE 22 MMOL/L (21-32); CHLORIDE 105 MMOL/L (98-107); CREATININE 0.6 MG/DL (0.55-1.30); POTASSIUM 3.9 MMOL/L (3.5-5.1); SODIUM 137 MMOL/L (136-145)
[2019-06-28] MEDS: Aspirin EC 81mg tab ORAL SCH (08:37)
[2019-06-28] MEDS: Miralax 17gm pkt ORAL SCH (08:37)
[2019-06-28] MEDS: Pantoprazole Inj IVP SCH (08:37)
[2019-06-28] MEDS: Memantine 10mg tab ORAL SCH ×2 (08:38→18:00)
[2019-06-28] MEDS: Atenolol 25mg tab ORAL SCH (08:38)
[2019-06-28] MEDS: Heparin 5000 units/ml inj SUBQ SCH ×2 (08:39→21:00)
--- NOTE | 2019-06-28 10:00 | NUR ---
NURSE NOTES: When patient changed and assessed for skin,brown discoloration on left trochanter 1cm x 1cm on pressure point and sacral 3cm x5 cm redness, small opening 1cm x 1cm which were not addressed during the admission. Picture taken, cleansed, Triad applied, Optifoam applied. CN made aware.
--- NOTE | 2019-06-28 10:05 | General Progress Note ---
Assessment/Plan Status: stable Assessment/Plan: 1. Asp Pneumonia - cont IV abx. Aspiration precautions. family refused PEG tube placement. 2. Sepsis - cont IV abx. 3. Dehydration - resolved with IV hydration. 4. Elevated Troponin 2nd to Demand Ischemia 2nd to sepsis. 5. Dementia - cont home meds. 6. BPH - cont home meds. 7. chronic pain syndrome 8. Depression - cont home meds. 9. DM II - cont home meds. Subjective Date patient seen: Jun 28, 2019 Time patient seen: 09:30 Constitutional: Reports: weakness HEENT: Reports: no symptoms Cardiovascular: Reports: no symptoms Respiratory: Reports: cough Gastrointestinal/Abdominal: Reports: no symptoms Genitourinary: Reports: no symptoms Neurologic/Psychiatric: Reports: no symptoms Endocrine: Reports: no symptoms Hematologic/Lymphatic: Reports: no symptoms Allergies: Coded Allergies: No Known Allergies (Unverified , 04/23/12) Subjective This morning patient is doing better but his WBC increased. He has ate food yesterday and today. His family refused PEG tube placement for now. No fever or chills. No nausea or vomiting. Objective Last 24 Hour Vital Signs Date Time Temp Pulse Resp B/P (MAP) Pulse Ox O2 Delivery O2 Flow Rate FiO2 06/28/19 08:38 106 127/62 06/28/19 07:13 102 20 98 Nasal Cannula 3.0 32 99 22 96 06/28/19 04:00 97.8 100 18 126/67 (86) 96 06/28/19 04:00 101 06/28/19 00:00 98.9 100 16 130/71 (90) 96 06/28/19 00:00 104 06/27/19 21:00 Nasal Cannula 2.0 06/27/19 20:00 117 06/27/19 20:00 99.0 100 16 125/62 (83) 95 06/27/19 19:36 106 22 96 Nasal Cannula 3.0 32 102 18 95 06/27/19 19:22 97.9 06/27/19 16:00 114 06/27/19 16:00 97.9 116 20 133/71 (91) 94 06/27/19 13:22 104 17 93 Nasal Cannula 3.0 32 99 18 93 06/27/19 12:00 98.4 107 20 111/51 (71) 93 06/27/19 11:48 107 Intake and Output 06/27/19 06/28/19 19:00 07:00 # Voids 2 2 Laboratory Tests 06/28/19 06:35: White Blood Count 18.4H, Red Blood Count 3.17L, Hemoglobin 10.2L, Hematocrit 29.2L, Mean Corpuscular Volume 92, Mean Corpuscular Hemoglobin 32.1H, Mean Corpuscular Hemoglobin Concent 34.8, Red Cell Distribution Width 13.4, Platelet Count 318, Mean Platelet Volume 5.4L, Neutrophils (%) (Auto) , Lymphocytes (%) ( Auto) , Monocytes (%) (Auto) , Eosinophils (%) (Auto) , Basophils (%) (Auto) , Neutrophils % (Manual) [Pending], Lymphocytes % (Manual) [Pending], Platelet Estimate [Pending], Platelet Morphology [Pending], Sodium Level 137, Potassium Level 3.9, Chloride Level 105, Carbon Dioxide Level 22, Anion Gap 10, Blood Urea Nitrogen 9, Creatinine 0.6, Estimat Glomerular Filtration Rate > 60, Glucose Level 127H, Calcium Level 8.8 Height (Feet): 5 Height (Inches): 7.00 Weight (Pounds): 99 General Appearance: no apparent distress, alert EENT: normal ENT inspection Neck: non-tender, supple Cardiovascular: normal rate, regular rhythm Respiratory/Chest: lungs clear, normal breath sounds Abdomen: non tender, soft Extremities: normal range of motion, non-tender Edema: no edema noted Arm (L), no edema noted Arm (R), no edema noted Leg (L), no edema noted Leg (R), no edema noted Pedal (L), no edema noted Pedal (R), no edema noted Generalized Neurologic: no motor/sensory deficits, alert, responsive Skin: warm/dry Pantera Benítez MD Jun 28, 2019 10:05
--- NOTE | 2019-06-28 10:18 | Cardiac Electrophysiology PN ---
Subjective Subjective [id number] Objective Last 24 Hour Vital Signs Date Time Temp Pulse Resp B/P (MAP) Pulse Ox O2 Delivery O2 Flow Rate FiO2 06/28/19 08:38 106 127/62 06/28/19 07:13 102 20 98 Nasal Cannula 3.0 32 99 22 96 06/28/19 04:00 97.8 100 18 126/67 (86) 96 06/28/19 04:00 101 06/28/19 00:00 98.9 100 16 130/71 (90) 96 06/28/19 00:00 104 06/27/19 21:00 Nasal Cannula 2.0 06/27/19 20:00 117 06/27/19 20:00 99.0 100 16 125/62 (83) 95 06/27/19 19:36 106 22 96 Nasal Cannula 3.0 32 102 18 95 06/27/19 19:22 97.9 06/27/19 16:00 114 06/27/19 16:00 97.9 116 20 133/71 (91) 94 06/27/19 13:22 104 17 93 Nasal Cannula 3.0 32 99 18 93 06/27/19 12:00 98.4 107 20 111/51 (71) 93 06/27/19 11:48 107 Intake and Output 06/27/19 06/28/19 19:00 07:00 # Voids 2 2 Laboratory Tests Test 06/28/19 06:35 White Blood Count 18.4 K/UL (4.8-10.8) H Red Blood Count 3.17 M/UL (4.70-6.10) L Hemoglobin 10.2 G/DL (14.2-18.0) L Hematocrit 29.2 % (42.0-52.0) L Mean Corpuscular Volume 92 FL (80-99) Mean Corpuscular Hemoglobin 32.1 PG (27.0-31.0) H Mean Corpuscular Hemoglobin Concent 34.8 G/DL (32.0-36.0) Red Cell Distribution Width 13.4 % (11.6-14.8) Platelet Count 318 K/UL (150-450) Mean Platelet Volume 5.4 FL (6.5-10.1) L Neutrophils (%) (Auto) % (45.0-75.0) Lymphocytes (%) (Auto) % (20.0-45.0) Monocytes (%) (Auto) % (1.0-10.0) Eosinophils (%) (Auto) % (0.0-3.0) Basophils (%) (Auto) % (0.0-2.0) Neutrophils % (Manual) Pending Lymphocytes % (Manual) Pending Platelet Estimate Pending Platelet Morphology Pending Sodium Level 137 MMOL/L (136-145) Potassium Level 3.9 MMOL/L (3.5-5.1) Chloride Level 105 MMOL/L (98-107) Carbon Dioxide Level 22 MMOL/L (21-32) Anion Gap 10 mmol/L (5-15) Blood Urea Nitrogen 9 mg/dL (7-18) Creatinine 0.6 MG/DL (0.55-1.30) Estimat Glomerular Filtration Rate > 60 mL/min (>60) Glucose Level 127 MG/DL (74-106) H Calcium Level 8.8 MG/DL (8.5-10.1) Microbiology Date/Time Source Procedure Growth Status 06/26/19 11:45 Blood Blood Culture - Preliminary NO GROWTH AFTER 24 HOURS Resulted 06/26/19 11:30 Blood Blood Culture - Preliminary NO GROWTH AFTER 24 HOURS Resulted 06/26/19 12:30 Nasal Nares MRSA Culture - Final Staphylococcus Aureus - Mrsa Complete 06/26/19 11:30 Nasal Nares - Final Complete 06/26/19 11:30 Nasal Nares - Final Complete 06/26/19 12:30 Rectum VRE Culture - Final Enterococcus Faecium - Vre Complete 06/26/19 12:30 Rectum Received Polo Julien MD Jun 28, 2019 10:18
[2019-06-28] MEDS: Vancomycin 500 MG in NS 110 ML IVPB SCH (11:17)
[2019-06-28 12:00] VITALS: BP 100/59
[2019-06-28] MEDS: HYDROcodone/Acetamin 5/325 tab ORAL PRN (13:07)
--- NOTE | 2019-06-28 13:44 | Infectious Diseases Prog Note ---
Assessment/Plan Problems: (1) Aspiration pneumonia Assessment & Plan: continue meropenem and vancomycin empirically pending sputum culture . aspiration precaution . swallow eval (2) Sepsis Assessment & Plan: suspect due to the above, with worsening of his WBC , will repeat blood culture x 2 and get a CXR . continue meropenem and vancomycin empirically pending blood culture (3) Dehydration Assessment & Plan: with vomiting , continue ivf for hydration, monitor lytes (4) Respiratory tract congestion with cough Assessment & Plan: due to the above, supportive care and inhalers as needed (5) Acute encephalopathy Assessment & Plan: due to the above, continue antibiotics hydration , aspiration precaution Subjective Constitutional: Reports: fatigue Respiratory: Reports: productive cough Gastrointestinal/Abdominal: Reports: other - poor oral intake Allergies: Coded Allergies: No Known Allergies (Unverified , 04/23/12) Subjective He was lying in bed awake and comfortable , breathing ok, no SOB, no fever or chills, congested with mild cough Objective Vital Signs Last 24 Hour Vital Signs Date Time Temp Pulse Resp B/P (MAP) Pulse Ox O2 Delivery O2 Flow Rate FiO2 06/28/19 13:33 79 22 96 Nasal Cannula 3.0 32 76 20 91 06/28/19 12:00 76 06/28/19 12:00 98.2 75 20 100/59 (73) 94 06/28/19 09:00 Nasal Cannula 2.0 06/28/19 08:38 106 127/62 06/28/19 08:00 106 06/28/19 08:00 97.5 106 20 127/62 (83) 96 06/28/19 07:13 102 20 98 Nasal Cannula 3.0 32 99 22 96 06/28/19 04:00 97.8 100 18 126/67 (86) 96 06/28/19 04:00 101 06/28/19 00:00 98.9 100 16 130/71 (90) 96 06/28/19 00:00 104 06/27/19 21:00 Nasal Cannula 2.0 06/27/19 20:00 117 06/27/19 20:00 99.0 100 16 125/62 (83) 95 06/27/19 19:36 106 22 96 Nasal Cannula 3.0 32 102 18 95 06/27/19 19:22 97.9 06/27/19 16:00 114 06/27/19 16:00 97.9 116 20 133/71 (91) 94 Height (Feet): 5 Height (Inches): 7.00 Weight (Pounds): 99 General Appearance: no acute distress, cachetic HEENT: normocephalic, atraumatic, anicteric, mucous membranes moist, PERRL Respiratory/Chest: chest wall non-tender, no respiratory distress, no accessory muscle use, decreased breath sounds, crackles/rales Cardiovascular: normal peripheral pulses, normal rate, regular rhythm, no gallop/murmur, no JVD Abdomen: normal bowel sounds, soft, non tender, no organomegaly, non distended , no mass, no scars Genitourinary: normal external genitalia Extremities: no cyanosis, no clubbing Skin: no rash, no lesions Neurologic/Psychiatric: embedded case manager II-XII grossly normal, alert, responsive Lymphatic: no neck adenopathy, no groin adenopathy Musculoskeletal: normal muscle bulk, no effusion Microbiology Date/Time Source Procedure Growth Status 06/26/19 11:45 Blood Blood Culture - Preliminary NO GROWTH AFTER 24 HOURS Resulted 06/26/19 11:30 Blood Blood Culture - Preliminary NO GROWTH AFTER 24 HOURS Resulted 06/26/19 12:30 Nasal Nares MRSA Culture - Final Staphylococcus Aureus - Mrsa Complete 06/26/19 11:30 Nasal Nares - Final Complete 06/26/19 11:30 Nasal Nares - Final Complete 06/26/19 12:30 Rectum VRE Culture - Final Enterococcus Faecium - Vre Complete 06/26/19 12:30 Rectum Received Laboratory Tests Test 06/28/19 06:35 06/28/19 10:25 White Blood Count 18.4 K/UL (4.8-10.8) H Red Blood Count 3.17 M/UL (4.70-6.10) L Hemoglobin 10.2 G/DL (14.2-18.0) L Hematocrit 29.2 % (42.0-52.0) L Mean Corpuscular Volume 92 FL (80-99) Mean Corpuscular Hemoglobin 32.1 PG (27.0-31.0) H Mean Corpuscular Hemoglobin Concent 34.8 G/DL (32.0-36.0) Red Cell Distribution Width 13.4 % (11.6-14.8) Platelet Count 318 K/UL (150-450) Mean Platelet Volume 5.4 FL (6.5-10.1) L Neutrophils (%) (Auto) % (45.0-75.0) Lymphocytes (%) (Auto) % (20.0-45.0) Monocytes (%) (Auto) % (1.0-10.0) Eosinophils (%) (Auto) % (0.0-3.0) Basophils (%) (Auto) % (0.0-2.0) Differential Total Cells Counted 100 Neutrophils % (Manual) 87 % (45-75) H Lymphocytes % (Manual) 4 % (20-45) L Monocytes % (Manual) 9 % (1-10) Eosinophils % (Manual) 0 % (0-3) Basophils % (Manual) 0 % (0-2) Band Neutrophils 0 % (0-8) Platelet Estimate Adequate Platelet Morphology Normal Hypochromasia 1+ Anisocytosis 1+ Sodium Level 137 MMOL/L (136-145) Potassium Level 3.9 MMOL/L (3.5-5.1) Chloride Level 105 MMOL/L (98-107) Carbon Dioxide Level 22 MMOL/L (21-32) Anion Gap 10 mmol/L (5-15) Blood Urea Nitrogen 9 mg/dL (7-18) Creatinine 0.6 MG/DL (0.55-1.30) Estimat Glomerular Filtration Rate > 60 mL/min (>60) Glucose Level 127 MG/DL (74-106) H Calcium Level 8.8 MG/DL (8.5-10.1) Vancomycin Level Trough 7.8 ug/mL (5.0-12.0) Current Medications Medications (Trade) Dose Ordered Sig/Chance Route PRN Reason Start Time Stop Time Status Last Admin Dose Admin Acetaminophen/ Hydrocodone Bitart (Benson 5/325) 1 tab Q6H PRN ORAL For Pain 06/26/19 18:15 07/03/19 18:14 06/28/19 13:07 Albuterol/ Ipratropium (Albuterol/ Ipratropium) 3 ml Q6HRT HHN 06/26/19 19:00 07/01/19 18:59 06/28/19 13:33 Aspirin (Ecotrin) 81 mg DAILY ORAL 06/27/19 09:00 07/27/19 08:59 06/28/19 08:37 Atenolol (Tenormin) 25 mg DAILY ORAL 06/27/19 09:00 07/27/19 08:59 06/28/19 08:38 Atorvastatin Calcium (Lipitor) 10 mg BEDTIME ORAL 06/28/19 21:00 07/28/19 20:59 Escitalopram Oxalate (Lexapro) 10 mg DAILY ORAL 06/27/19 09:00 07/27/19 08:59 06/28/19 08:38 Finasteride (Proscar) 5 mg QHS ORAL 06/26/19 21:00 07/26/19 20:59 06/26/19 22:31 Heparin Sodium (Porcine) (Heparin 5000 units/ml) 5,000 units EVERY 12 HOURS SUBQ 06/26/19 21:00 07/26/19 20:59 Memantine (Namenda) 10 mg BID ORAL 06/27/19 09:00 07/27/19 08:59 06/28/19 08:38 Meropenem 1 gm/ Sodium Chloride 55 ml @ 110 mls/hr Q8H IVPB 06/26/19 18:00 07/01/19 17:59 06/28/19 10:42 Pantoprazole (Protonix) 40 mg DAILY IVP 06/26/19 20:00 07/26/19 19:59 06/28/19 08:37 Polyethylene Glycol (Miralax) 17 gm DAILY ORAL 06/27/19 09:00 07/27/19 08:59 06/28/19 08:37 Sitagliptin Phosphate (Januvia) 100 mg ACBREAKFAST ORAL 06/27/19 06:30 07/27/19 06:29 06/27/19 06:45 Sodium Chloride 1,000 ml @ 50 mls/hr Q20H IV 06/26/19 20:00 07/26/19 19:59 06/28/19 12:17 Tamsulosin HCl (Flomax) 0.4 mg BEDTIME ORAL 06/26/19 21:00 07/26/19 20:59 06/26/19 22:31 Tiotropium Mccomb (Spiriva Inhaler) 1 puff DAILY INH 06/27/19 09:00 07/27/19 08:59 06/27/19 11:09 Trazodone HCl (Desyrel) 50 mg QHS ORAL 06/26/19 21:00 07/26/19 20:59 06/26/19 22:31 Vancomycin HCl (Vanco rx to dose) 1 ea DAILY PRN MISC Per rx protocol 06/26/19 14:45 07/26/19 14:44 Vancomycin HCl 500 mg/Sodium Chloride 110 ml @ 110 mls/hr Q12HR@1100,2300 IVPB 06/26/19 23:00 06/28/19 14:00 06/28/19 11:17 Vancomycin HCl 750 mg/Sodium Chloride 275 ml @ 183.333 mls/hr Q12HR IVPB 06/28/19 21:00 07/03/19 20:59 Bety Saini M.D. Jun 28, 2019 13:44
[2019-06-28 16:00] VITALS: BP 105/54
--- NOTE | 2019-06-28 16:41 | Consultation ---
Consult Note Assessment/Plan DICT # [id number] Alonzo Cuevas MD Jun 28, 2019 16:41
--- NOTE | 2019-06-28 16:45 | Consultation ---
DATE OF CONSULTATION: 06/28/2019 CARDIOLOGY CONSULTATION CONSULTING PHYSICIAN: Polo Julien M.D. REFERRING PHYSICIAN: Pantera Benítez M.D. REASON FOR CONSULTATION: Elevated troponin, shortness of breath, and elevated brain natriuretic peptide, rule out congestive heart failure. HISTORY OF PRESENT ILLNESS: The patient is a very pleasant 89-year-old [place] gentleman with history of hypertension, benign prostatic hypertrophy, depression, dementia, and chronic pain syndrome, who was brought in from [facility] for nausea and vomiting as well as increasing shortness of breath. The patient was recently diagnosed with pneumonia at the rehab and was started on doxycycline and cefepime. His saturation dropped after vomiting. The patient was transferred to [place] for further evaluation. The patient was evaluated by Infectious Disease specialist and was started on IV antibiotic; however, the patient was noted to have increasing brain natriuretic peptide as well as elevated troponin, but initial troponin was negative. At the time of my evaluation, the patient denies any chest pain, but continues to have cough and shortness of breath. REVIEW OF SYSTEMS: Negative other than what was mentioned in history of present illness. PAST MEDICAL HISTORY: As mentioned above. PAST SURGICAL HISTORY: Negative. MEDICATIONS: Per reconciliation. ALLERGIES: He has no known drug allergies. FAMILY HISTORY: Noncontributory. SOCIAL HISTORY: He lives in a fci. Does not smoke or drink alcohol. PHYSICAL EXAMINATION: VITAL SIGNS: Show blood pressure 127/62, pulse is 106, respirations 18, and temperature 97.8. HEAD AND NECK: Shows no JVD. LUNGS: Coarse rhonchi bilaterally with decreased breath sounds. CARDIOVASCULAR: Shows regular S1 and S2 with no gallop or murmur. Slightly tachycardic. ABDOMEN: Soft. EXTREMITIES: No pitting edema. LABORATORY AND DIAGNOSTIC DATA: His labs show initial troponin that was negative. Second troponin is 0.064. BNP is 2267. Sodium 137, potassium 3.9, BUN of 9, creatinine 0.6, and glucose 127. White count is 18.4, hemoglobin 10.2, hematocrit 29.2, and platelet count 318,000. ASSESSMENT AND PLAN: 1. Elevated troponin. The EKG did not show any acute ischemic changes. Repeat the EKG and echocardiogram and repeat troponin. We will continue the patient on aspirin and atenolol and add low-dose statin to his medical regimen. 2. Hypertension, on atenolol 25 mg daily. 3. Elevated BNP. We will get an echocardiogram to evaluate for ejection fraction and wall motion abnormality. 4. Pneumonia and sepsis, on meropenem and vancomycin per Dr. Saini. 5. Dementia. Thank you very much for allowing me to participate in the care of this patient. Please do not hesitate to contact me for any questions regarding my evaluation. Polo Julien M.D. DR: VAISHALI JOB#: [id number] CC:
--- NOTE | 2019-06-28 17:35 | Diagnostic Imaging Report ---
EXAM: XR Chest, 1 View CLINICAL HISTORY: ALOC TECHNIQUE: Frontal view of the chest. COMPARISON: . FINDINGS: Extensive reticular opacities are again noted. Increasing hazy opacification at the right base, best illustrated by the poorly visualized. Diaphragmatic contour, which was seen fairly sharply on the prior study. Question developing pleural effusions. Calcified aorta. No pneumothorax. Marked osteopenia. Degenerative changes. IMPRESSION: Reticular opacities appear similar to the prior study. I would favor edema, particularly given developing pleural effusions, but interstitial/atypical pneumonitis is also possible.
--- NOTE | 2019-06-28 19:25 | NUR ---
HAND-OFF: Report given to MARINA Philippe. Endorsed care of plan.
[2019-06-28 20:00] VITALS: BP 119/58
[2019-06-28] MEDS: Tamsulosin 0.4mg cap ORAL SCH (21:00)
[2019-06-28] MEDS: Vancomycin 750mg/NS 275ml IVPB SCH ×2 (21:00)
[2019-06-28] MEDS: TraZODone 50mg tab ORAL SCH (21:00)
[2019-06-29] VITALS: BP 111/64
[2019-06-29] MEDS: Albuterol/Ipratropium 3ml neb HHN SCH ×4 (00:11→19:20)
--- NOTE | 2019-06-29 01:30 | Consultation ---
DATE OF CONSULTATION: 06/28/2019 CARDIOLOGY CONSULTATION CONSULTING PHYSICIAN: Polo Julien M.D. REFERRING PHYSICIAN: Pantera Benítez M.D. REASON FOR CONSULTATION: Elevated troponin, shortness of breath, and elevated brain natriuretic peptide, rule out congestive heart failure. HISTORY OF PRESENT ILLNESS: The patient is a very pleasant 89-year-old [place]andan gentleman with history of hypertension, benign prostatic hypertrophy, depression, dementia, and chronic pain syndrome, who was brought in from [facility] for nausea and vomiting as well as increasing shortness of breath. The patient was recently diagnosed with pneumonia at the rehab and was started on doxycycline and cefepime. His saturation dropped after vomiting. The patient was transferred to [place] for further evaluation. The patient was evaluated by Infectious Disease specialist and was started on IV antibiotic; however, the patient was noted to have increasing brain natriuretic peptide as well as elevated troponin, but initial troponin was negative. At the time of my evaluation, the patient denies any chest pain, but continues to have cough and shortness of breath. REVIEW OF SYSTEMS: Negative other than what was mentioned in history of present illness. PAST MEDICAL HISTORY: As mentioned above. PAST SURGICAL HISTORY: Negative. MEDICATIONS: Per reconciliation. ALLERGIES: He has no known drug allergies. FAMILY HISTORY: Noncontributory. SOCIAL HISTORY: He lives in a retirement. Does not smoke or drink alcohol. PHYSICAL EXAMINATION: VITAL SIGNS: Show blood pressure 127/62, pulse is 106, respirations 18, and temperature 97.8. HEAD AND NECK: Shows no JVD. LUNGS: Coarse rhonchi bilaterally with decreased breath sounds. CARDIOVASCULAR: Shows regular S1 and S2 with no gallop or murmur. Slightly tachycardic. ABDOMEN: Soft. EXTREMITIES: No pitting edema. LABORATORY AND DIAGNOSTIC DATA: His labs show initial troponin that was negative. Second troponin is 0.064. BNP is . Sodium 137, potassium 3.9, BUN of 9, creatinine 0.6, and glucose 127. White count is 18.4, hemoglobin 10.2, hematocrit 29.2, and platelet count 318,000. ASSESSMENT AND PLAN: 1. Elevated troponin. The EKG did not show any acute ischemic changes. Repeat the EKG and echocardiogram and repeat troponin. We will continue the patient on aspirin and atenolol and add low-dose statin to his medical regimen. 2. Hypertension, on atenolol 25 mg daily. 3. Elevated BNP. We will get an echocardiogram to evaluate for ejection fraction and wall motion abnormality. 4. Pneumonia and sepsis, on meropenem and vancomycin per Dr. Saini. 5. Dementia. Thank you very much for allowing me to participate in the care of this patient. Please do not hesitate to contact me for any questions regarding my evaluation. Polo Julien M.D. DR: VAISHALI JOB#: [id number] CC:
--- NOTE | 2019-06-29 01:30 | Consultation ---
DATE OF CONSULTATION: 06/28/2019 PULMONARY CONSULTATION CONSULTING PHYSICIAN: Alonzo Cuevas M.D. REFERRING PHYSICIAN: Pantera Benítez M.D. REASON FOR CONSULTATION: The patient is an 89-year-old male, retirement resident, with a history of advanced Alzheimer dementia, COPD, and bronchiectasis, brought in by EMS for nausea, vomiting, generalized malaise, and shortness of breath. He was diagnosed with bibasilar pneumonia at the facility and started on broad-spectrum antimicrobials. He had persistent cough and congestion, so was brought in. He was seen by Speech Therapy, was unstable for evaluation, and family has declined PEG placement. The patient himself cannot provide any history. PAST MEDICAL HISTORY: 1. Bronchiectasis. 2. Known pulmonary nodules. 3. COPD. 4. Dementia, likely of Alzheimer's type. 5. GERD. 6. Hypertension. 7. Hyperlipidemia. 8. BPH. ALLERGIES: No known drug allergies. MEDICATIONS: [id number] medications reviewed. Current medications reviewed. SOCIAL HISTORY: skilled nursing resident. No known tobacco, alcohol, or drug use. FAMILY HISTORY: Noncontributory. REVIEW OF SYSTEMS: Unobtainable. PHYSICAL EXAMINATION: VITAL SIGNS: Temperature 97.5, pulse 75, blood pressure 105/64, respiratory rate 20, and saturating 95% on 2 L. GENERAL: He is a confused, demented, elderly male, in no distress. Awake, alert, oriented x1. HEENT: Normocephalic and atraumatic. Oropharynx is clear with moist mucous membranes. NECK: Supple without lymphadenopathy or JVD. CHEST: Scattered coarse breath sounds. HEART: Regular rate and rhythm. ABDOMEN: Soft, nontender, and nondistended. EXTREMITIES: No cyanosis, clubbing, or edema. ANCILLARY DATA: White count 18.4, hemoglobin 10.2, and platelet count 318,000. Sodium 137, potassium 3.9, chloride 105, bicarbonate 22, BUN 9, creatinine 0.6, and glucose 127. Troponin 0.064. BNP 3267. MRSA culture positive. VRE positive. Blood culture, no growth. Imaging, chest x-ray reviewed by myself shows some interstitial prominence and bronchiectatic changes. ASSESSMENT: The patient is an 89-year-old male with history of COPD, bronchiectasis, dementia likely of the Alzheimer's type, hypertension, hyperlipidemia, GERD, and BPH, presenting with healthcare-associated pneumonia. PROBLEM LIST: 1. Healthcare-associated pneumonia. 2. COPD. 3. Bronchiectasis. 4. Pulmonary nodularity. 5. Likely aspiration. 6. Dysphagia. 7. Advanced dementia. 8. Hypertension. 9. Hyperlipidemia. 10. BPH. TREATMENT PLAN: 1. Optimize pulmonary hygiene/mobilize as tolerated. 2. O2 p.r.n. to keep sats greater than 90%. 3. Continue Spiriva. 4. DuoNebs [id number] and p.r.n. 5. Broad-spectrum antimicrobials per ID. 6. Monitor volumes and renal function. 7. Aspiration precautions, Speech Pathology recommendations, family refusing gastrostomy tube placement. 8. DVT prophylaxis, heparin subcu. 9. The patient is Full Code, continue to address goals of care. Particularly given the patient's advanced dementia and the fact that the family wishes to feeding despite his underlying dementia and a PEG is not within the goals of care, I feel that DNAR status would be appropriate. Dr. Benítez, thank you for allowing me to assist in the care of your patient. If I may be of any assistance in the future, please do not hesitate to ask. Alonzo Cuevas M.D. DR: Yumiko JOB#: [id number] CC:
[2019-06-29] MEDS: Meropenem 1 GM in NS 55 ML IVPB SCH ×3 (01:53→17:06)
[2019-06-29 04:00] VITALS: BP 122/74
--- NOTE | 2019-06-29 07:30 | NUR ---
NURSE NOTES: Received pt from [facility]INDU G[facility], Pt is awake and alert, pt has NC 2LMP. Pt has intact iv access LAC 20G is running well. A MEDICAL STAFFING COORDINATOR is feeding pt. Pt is on continues heart monitoring. all needs attended, bed is locked and is in the lowest position, call light within easy reach. will continue to monitor.
--- NOTE | 2019-06-29 07:40 | NUR ---
HAND-OFF: Report given to Deyanira GRAY.
[2019-06-29 08:00] VITALS: BP 98/49
[2019-06-29] MEDS: Pantoprazole Inj IVP SCH ×2 (08:50→22:18)
[2019-06-29] MEDS: Aspirin EC 81mg tab ORAL SCH (08:50)
[2019-06-29] MEDS: Miralax 17gm pkt ORAL SCH (08:50)
[2019-06-29] MEDS: Memantine 10mg tab ORAL SCH ×2 (08:50→17:10)
[2019-06-29] MEDS: LORazepam 0.5mg tab ORAL PRN (08:51)
[2019-06-29] MEDS: Heparin 5000 units/ml inj SUBQ SCH ×2 (08:52→21:00)
[2019-06-29] MEDS: Atenolol 25mg tab ORAL SCH (09:00)
[2019-06-29] MEDS: Vancomycin 750mg/NS 275ml IVPB SCH ×4 (09:53→22:18)
--- NOTE | 2019-06-29 09:53 | Cardiac Electrophysiology PN ---
Assessment/Plan Assessment/Plan 1. Elevated troponin. EKG does not show any acute ischemic changes. Echocardiogram EF 65%. Refused lab work and repeat troponin. Continue aspirin, atenolol and Lipitor 2. Hypertension, on atenolol 25 mg daily. 3. Elevated BNP. Echocardiogram Nl EF 65% 4. Pneumonia and sepsis, on meropenem and vancomycin per Dr. Saini. 5. 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 Had Ativan. Still complains of Cough, headache and body ache Objective Last 24 Hour Vital Signs Date Time Temp Pulse Resp B/P (MAP) Pulse Ox O2 Delivery O2 Flow Rate FiO2 06/29/19 08:00 96.7 88 20 98/49 (65) 97 06/29/19 04:00 123 06/29/19 04:00 97.9 60 18 122/74 (90) 96 06/29/19 00:13 124 20 94 06/29/19 00:00 97.2 66 18 111/64 (80) 97 06/29/19 00:00 121 06/28/19 21:00 Nasal Cannula 2.0 06/28/19 20:00 97.7 75 18 119/58 (78) 96 06/28/19 20:00 91 06/28/19 19:37 75 20 95 Nasal Cannula 3.0 32 78 18 92 06/28/19 16:00 69 06/28/19 16:00 98.4 73 20 105/54 (71) 95 06/28/19 13:33 79 22 96 Nasal Cannula 3.0 32 76 20 91 06/28/19 12:00 76 06/28/19 12:00 98.2 75 20 100/59 (73) 94 Intake and Output 06/28/19 06/29/19 19:00 07:00 Intake Total 480 ml Balance 480 ml Intake Oral 480 ml # Voids 2 2 Laboratory Tests Test 06/28/19 10:25 Vancomycin Level Trough 7.8 ug/mL (5.0-12.0) Microbiology Date/Time Source Procedure Growth Status 06/26/19 11:45 Blood Blood Culture - Preliminary NO GROWTH AFTER 48 HOURS Resulted 06/26/19 11:30 Blood Blood Culture - Preliminary NO GROWTH AFTER 48 HOURS Resulted 06/26/19 12:30 Nasal Nares MRSA Culture - Final Staphylococcus Aureus - Mrsa Complete 06/26/19 11:30 Nasal Nares - Final Complete 06/26/19 11:30 Nasal Nares - Final Complete 06/26/19 12:30 Rectum VRE Culture - Final Enterococcus Faecium - Vre Complete 06/26/19 12:30 Rectum - Final NO CARBAPENEM-RESISTANT ENTEROBACTERI... Complete Objective HEAD AND NECK: No JVD. LUNGS: Coarse rhonchi bilaterally with decreased breath sounds. CARDIOVASCULAR: Shows regular S1 and S2 with no gallop or murmur. Slightly tachycardic. ABDOMEN: Soft. EXTREMITIES: No pitting edema. Polo Julien MD Jun 29, 2019 09:53
[2019-06-29] MEDS: HYDROcodone/Acetamin 5/325 tab ORAL PRN ×2 (09:56→17:11)
[2019-06-29 10:42] LABS: HEMATOCRIT 27.1 % (42.0-52.0); HEMOGLOBIN 9.2 G/DL (14.2-18.0); MEAN CORPUSCULAR VOLUME 94 FL (80-99); PLATELET COUNT 311 K/UL (150-450); RED BLOOD COUNT 2.89 M/UL (4.70-6.10)
[2019-06-29] MEDS ORDERED: Promethazine/DM 6.25mg/5ml ORAL PRN ×2 (10:45→11:15)
--- NOTE | 2019-06-29 10:54 | General Progress Note ---
Assessment/Plan Status: stable Assessment/Plan: 1. Asp Pneumonia - cont IV abx. Aspiration precautions. family refused PEG tube placement. 2. Sepsis - cont IV abx. 3. Dehydration - resolved. D/C IVF. 4. Elevated Troponin 2nd to Demand Ischemia 2nd to sepsis. EF 65%. 5. Dementia - cont home meds. 6. BPH - cont home meds. 7. chronic pain syndrome 8. Depression - cont home meds. 9. DM II - cont Januvia 10. COPD - cont Duoneb and spiriva. Subjective Date patient seen: Jun 29, 2019 Time patient seen: 10:30 Constitutional: Reports: weakness HEENT: Reports: no symptoms Cardiovascular: Reports: no symptoms Respiratory: Reports: cough Gastrointestinal/Abdominal: Reports: abdominal pain Genitourinary: Reports: no symptoms Endocrine: Reports: no symptoms Hematologic/Lymphatic: Reports: no symptoms Allergies: Coded Allergies: No Known Allergies (Unverified , 04/23/12) Subjective This morning patient is doing better and His WBC is improving as well. He c/o epigastric pain. His family refused PEG tube placement and he is on oral puree feeding. No fever or chills. No nausea or vomiting. Objective Last 24 Hour Vital Signs Date Time Temp Pulse Resp B/P (MAP) Pulse Ox O2 Delivery O2 Flow Rate FiO2 06/29/19 09:00 88 98/49 06/29/19 08:00 96.7 88 20 98/49 (65) 97 06/29/19 07:52 87 06/29/19 04:00 123 06/29/19 04:00 97.9 60 18 122/74 (90) 96 06/29/19 00:13 124 20 94 06/29/19 00:00 97.2 66 18 111/64 (80) 97 06/29/19 00:00 121 06/28/19 21:00 Nasal Cannula 2.0 06/28/19 20:00 97.7 75 18 119/58 (78) 96 06/28/19 20:00 91 06/28/19 19:37 75 20 95 Nasal Cannula 3.0 32 78 18 92 06/28/19 16:00 69 06/28/19 16:00 98.4 73 20 105/54 (71) 95 06/28/19 13:33 79 22 96 Nasal Cannula 3.0 32 76 20 91 06/28/19 12:00 76 06/28/19 12:00 98.2 75 20 100/59 (73) 94 Intake and Output 06/28/19 06/29/19 19:00 07:00 Intake Total 480 ml Balance 480 ml Intake Oral 480 ml # Voids 2 2 Laboratory Tests 06/29/19 10:28: White Blood Count 13.0H, Red Blood Count 2.89L, Hemoglobin 9.2L, Hematocrit 27.1L, Mean Corpuscular Volume 94, Mean Corpuscular Hemoglobin 31.8H, Mean Corpuscular Hemoglobin Concent 34.0, Red Cell Distribution Width 13.0, Platelet Count 311, Mean Platelet Volume 5.7L, Neutrophils (%) (Auto) , Lymphocytes (%) ( Auto) , Monocytes (%) (Auto) , Eosinophils (%) (Auto) , Basophils (%) (Auto) , Neutrophils % (Manual) [Pending], Lymphocytes % (Manual) [Pending], Platelet Estimate [Pending], Platelet Morphology [Pending], Sodium Level [Pending], Potassium Level [Pending], Chloride Level [Pending], Carbon Dioxide Level [ Pending], Blood Urea Nitrogen [Pending], Creatinine [Pending], Estimat Glomerular Filtration Rate [Pending], Glucose Level [Pending], Calcium Level [ Pending], Troponin I [Pending] Height (Feet): 5 Height (Inches): 7.00 Weight (Pounds): 99 General Appearance: no apparent distress, alert EENT: normal ENT inspection Neck: non-tender, normal alignment, supple Cardiovascular: normal rate, regular rhythm Respiratory/Chest: no respiratory distress, crackles/rales Abdomen: non tender, soft Extremities: normal range of motion, non-tender Edema: no edema noted Arm (L), no edema noted Arm (R), no edema noted Leg (L), no edema noted Leg (R), no edema noted Pedal (L), no edema noted Pedal (R), no edema noted Generalized Neurologic: alert, responsive Skin: warm/dry Pantera Benítez MD Jun 29, 2019 10:54
[2019-06-29 11:00] LABS: ANION GAP 11 mmol/L (5-15); BLOOD UREA NITROGEN 13 mg/dL (7-18); CALCIUM 8.3 MG/DL (8.5-10.1); CARBON DIOXIDE 23 MMOL/L (21-32); CHLORIDE 107 MMOL/L (98-107); CREATININE 0.5 MG/DL (0.55-1.30); POTASSIUM 4.1 MMOL/L (3.5-5.1); SODIUM 141 MMOL/L (136-145)
[2019-06-29 11:55] VITALS: BP 97/44
--- NOTE | 2019-06-29 11:58 | NUR ---
NURSE NOTES: Dr BENNETT visited pt and he is aware about troponin 0.315, stated it is ok, no new order to RN, and is aware about BP, cough, pain, all orders noted and carried out. will continue to monitor.
[2019-06-29 15:44] VITALS: BP 95/43
--- NOTE | 2019-06-29 16:34 | NUR ---
RESPIRATORY NOTE: Pt previously assigned to RT Linh. Unable to give Q6 breathing treatment at 1630. Requested from RN Deyanira to order breathing tx PRN, will give tx when its ordered. Per RN, unable to order. Will just wait for RT refinery operator helper to give the 1900 early. MARINA Mcmillan aware.
--- NOTE | 2019-06-29 18:00 | Pulmonology Progress Note ---
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 PROBLEM LIST: 1. Healthcare-associated pneumonia. 2. COPD. 3. Bronchiectasis. 4. Pulmonary nodularity. 5. Likely aspiration. 6. Dysphagia. 7. Advanced dementia. 8. Hypertension. 9. Hyperlipidemia. 10. BPH. 11. NSTEMI, ? demand ischemia TREATMENT PLAN: 1. Optimize pulmonary hygiene/mobilize as tolerated. 2. O2 p.r.n. to keep sats greater than 90%. 3. Continue Spiriva. 4. DuoNebs jnvve-pie-lcomb and p.r.n. 5. Broad-spectrum antimicrobials per ID. 6. Monitor volumes and renal function. 7. Aspiration precautions, Speech Pathology recommendations, family refusing gastrostomy tube placement. 8. F/U cards recs 9. DVT prophylaxis, heparin subcu. 10. The patient is Full Code, continue to address goals of care. Particularly given the patient's advanced dementia and the fact that the family wishes to feeding despite his underlying dementia and a PEG is not within the goals of care, I feel that DNAR status would be appropriate. Subjective Allergies: Coded Allergies: No Known Allergies (Unverified , 04/23/12) Subjective AFVSS on RA trop inc + cough + SOB no FC no CP Family declines PEG Objective Last 24 Hour Vital Signs Date Time Temp Pulse Resp B/P (MAP) Pulse Ox O2 Delivery O2 Flow Rate FiO2 06/29/19 16:24 84 06/29/19 15:44 98.2 84 20 95/43 (60) 95 06/29/19 11:55 96.8 85 20 97/44 (61) 96 06/29/19 11:45 86 06/29/19 09:00 88 98/49 06/29/19 09:00 Nasal Cannula 2.0 06/29/19 08:00 96.7 88 20 98/49 (65) 97 06/29/19 07:52 87 06/29/19 04:00 123 06/29/19 04:00 97.9 60 18 122/74 (90) 96 06/29/19 00:13 124 20 94 06/29/19 00:00 97.2 66 18 111/64 (80) 97 06/29/19 00:00 121 06/28/19 21:00 Nasal Cannula 2.0 06/28/19 20:00 97.7 75 18 119/58 (78) 96 06/28/19 20:00 91 06/28/19 19:37 75 20 95 Nasal Cannula 3.0 32 78 18 92 Intake and Output 06/28/19 06/29/19 19:00 07:00 Intake Total 480 ml Balance 480 ml Intake Oral 480 ml # Voids 2 2 General Appearance: no acute distress, cachetic - confused HEENT: normocephalic, atraumatic, anicteric, mucous membranes moist Respiratory/Chest: rhonchi Cardiovascular: normal peripheral pulses, normal rate, regular rhythm Abdomen: normal bowel sounds, soft, non tender, no organomegaly, non distended , no mass Extremities: no cyanosis, no clubbing, no edema Laboratory Tests 06/29/19 10:28: White Blood Count 13.0H, Red Blood Count 2.89L, Hemoglobin 9.2L, Hematocrit 27.1L, Mean Corpuscular Volume 94, Mean Corpuscular Hemoglobin 31.8H, Mean Corpuscular Hemoglobin Concent 34.0, Red Cell Distribution Width 13.0, Platelet Count 311, Mean Platelet Volume 5.7L, Neutrophils (%) (Auto) , Lymphocytes (%) ( Auto) , Monocytes (%) (Auto) , Eosinophils (%) (Auto) , Basophils (%) (Auto) , Differential Total Cells Counted 100, Neutrophils % (Manual) 87H, Lymphocytes % (Manual) 5L, Monocytes % (Manual) 8, Eosinophils % (Manual) 0, Basophils % ( Manual) 0, Band Neutrophils 0, Platelet Estimate Adequate, Platelet Morphology Normal, Hypochromasia 2+, Anisocytosis 1+, Sodium Level 141, Potassium Level 4.1 , Chloride Level 107, Carbon Dioxide Level 23, Anion Gap 11, Blood Urea Nitrogen 13, Creatinine 0.5L, Estimat Glomerular Filtration Rate > 60, Glucose Level 151H, Calcium Level 8.3L, Troponin I 0.315H Current Medications Medications (Trade) Dose Ordered Sig/Chance Route PRN Reason Start Time Stop Time Status Last Admin Dose Admin Acetaminophen/ Hydrocodone Bitart ([place] 5/325) 1 tab Q6H PRN ORAL For Pain 06/26/19 18:15 07/03/19 18:14 06/29/19 17:11 Albuterol/ Ipratropium (Albuterol/ Ipratropium) 3 ml Q6HRT HHN 06/26/19 19:00 07/01/19 18:59 06/29/19 00:11 Aspirin (Ecotrin) 81 mg DAILY ORAL 06/27/19 09:00 07/27/19 08:59 06/29/19 08:50 Atenolol (Tenormin) 12.5 mg DAILY ORAL 06/30/19 09:00 07/27/19 08:59 Atorvastatin Calcium (Lipitor) 10 mg BEDTIME ORAL 06/28/19 21:00 07/28/19 20:59 06/28/19 21:00 Escitalopram Oxalate (Lexapro) 10 mg DAILY ORAL 06/27/19 09:00 07/27/19 08:59 06/29/19 08:51 Finasteride (Proscar) 5 mg QHS ORAL 06/26/19 21:00 07/26/19 20:59 06/28/19 21:00 Heparin Sodium (Porcine) (Heparin 5000 units/ml) 5,000 units EVERY 12 HOURS SUBQ 06/26/19 21:00 07/26/19 20:59 06/29/19 08:52 Lorazepam (Ativan) 0.5 mg EVERY 8 HOURS PRN ORAL For Anxiety 06/28/19 23:45 07/05/19 23:44 06/29/19 08:51 Memantine (Namenda) 10 mg BID ORAL 06/27/19 09:00 07/27/19 08:59 06/29/19 17:10 Meropenem 1 gm/ Sodium Chloride 55 ml @ 110 mls/hr Q8H IVPB 06/26/19 18:00 07/01/19 17:59 06/29/19 17:06 Pantoprazole (Protonix) 40 mg Q12HR IVP 06/29/19 21:00 07/29/19 20:59 Polyethylene Glycol (Miralax) 17 gm DAILY ORAL 06/27/19 09:00 07/27/19 08:59 06/29/19 08:50 Promethazine HCl/ Dextromethorphan (Phenergan DM) 6.25 mg Q8H PRN ORAL For Cough 06/29/19 11:15 07/29/19 11:14 Sitagliptin Phosphate (Januvia) 100 mg ACBREAKFAST ORAL 06/27/19 06:30 07/27/19 06:29 06/29/19 06:27 Tamsulosin HCl (Flomax) 0.4 mg BEDTIME ORAL 06/26/19 21:00 07/26/19 20:59 06/28/19 21:00 Tiotropium [place] (Spiriva Inhaler) 1 puff DAILY INH 06/27/19 09:00 07/27/19 08:59 06/29/19 08:36 Trazodone HCl (Desyrel) 50 mg QHS ORAL 06/26/19 21:00 07/26/19 20:59 06/28/19 21:00 Vancomycin HCl (Vanco rx to dose) 1 ea DAILY PRN MISC Per rx protocol 06/26/19 14:45 07/26/19 14:44 Vancomycin HCl 750 mg/Sodium Chloride 275 ml @ 183.333 mls/hr Q12HR IVPB 06/28/19 21:00 07/03/19 20:59 06/29/19 09:53 Alonzo Cuevas MD Jun 29, 2019 18:00
--- NOTE | 2019-06-29 19:33 | NUR ---
HAND-OFF: Report given to GILL GRAY. Pt is awake and stable.
--- NOTE | 2019-06-29 19:34 | NUR ---
NURSE NOTES: Got report from Deyanira GRAY. Pt in stable condition. Denies any pain. No s/s of distress or discomfort noted. Pt resting in bed comfortably. Bed in low and locked position, call light within reach, bedside table within reach. Continue to monitor.
[2019-06-29 20:00] VITALS: BP 102/50
--- NOTE | 2019-06-29 22:02 | Infectious Diseases Prog Note ---
Assessment/Plan Problems: (1) Aspiration pneumonia Assessment & Plan: repeated CXR showed reticular densities in both lungs , continue meropenem and vancomycin empirically pending sputum culture . aspiration precaution . swallow eval (2) Sepsis Assessment & Plan: suspect due to the above, with worsening of his WBC , will repeat blood culture x 2 and get a CXR . continue meropenem and vancomycin empirically pending blood culture (3) Dehydration Assessment & Plan: with vomiting , continue ivf for hydration, monitor lytes (4) Respiratory tract congestion with cough Assessment & Plan: due to the above, supportive care and inhalers as needed (5) Acute encephalopathy Assessment & Plan: due to the above, continue antibiotics hydration , aspiration precaution (6) At high risk for aspiration Assessment & Plan: due to dementia recommend tube feeding since high risk for recurrent aspiration and developing pneumonia . D/W Daughter and Subjective ROS Limited/Unobtainable: Yes Allergies: Coded Allergies: No Known Allergies (Unverified , 04/23/12) Subjective He was lying in bed awake and comfortable , breathing ok, no SOB, no fever or chills, still congested with cough , but no phlegm Objective Vital Signs Last 24 Hour Vital Signs Date Time Temp Pulse Resp B/P (MAP) Pulse Ox O2 Delivery O2 Flow Rate FiO2 06/29/19 19:21 82 20 96 Nasal Cannula 5.0 40 78 22 93 06/29/19 16:24 84 06/29/19 15:44 98.2 84 20 95/43 (60) 95 06/29/19 11:55 96.8 85 20 97/44 (61) 96 06/29/19 11:45 86 06/29/19 09:00 88 98/49 06/29/19 09:00 Nasal Cannula 2.0 06/29/19 08:00 96.7 88 20 98/49 (65) 97 06/29/19 07:52 87 06/29/19 04:00 123 06/29/19 04:00 97.9 60 18 122/74 (90) 96 06/29/19 00:13 124 20 94 06/29/19 00:00 97.2 66 18 111/64 (80) 97 06/29/19 00:00 121 Height (Feet): 5 Height (Inches): 7.00 Weight (Pounds): 99 General Appearance: no acute distress, cachetic HEENT: normocephalic, atraumatic, anicteric, mucous membranes moist Respiratory/Chest: chest wall non-tender, no respiratory distress, no accessory muscle use, decreased breath sounds, crackles/rales Cardiovascular: normal peripheral pulses, normal rate, regular rhythm, no gallop/murmur, no JVD Abdomen: normal bowel sounds, soft, non tender, no organomegaly, non distended , no mass, no scars Genitourinary: normal external genitalia Extremities: no cyanosis, no clubbing Skin: no rash, no lesions 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, alert, responsive Lymphatic: no neck adenopathy, no groin adenopathy Musculoskeletal: normal muscle bulk, no effusion Laboratory Tests Test 06/29/19 10:28 06/29/19 20:05 White Blood Count 13.0 K/UL (4.8-10.8) H Red Blood Count 2.89 M/UL (4.70-6.10) L Hemoglobin 9.2 G/DL (14.2-18.0) L Hematocrit 27.1 % (42.0-52.0) L Mean Corpuscular Volume 94 FL (80-99) Mean Corpuscular Hemoglobin 31.8 PG (27.0-31.0) H Mean Corpuscular Hemoglobin Concent 34.0 G/DL (32.0-36.0) Red Cell Distribution Width 13.0 % (11.6-14.8) Platelet Count 311 K/UL (150-450) Mean Platelet Volume 5.7 FL (6.5-10.1) L Neutrophils (%) (Auto) % (45.0-75.0) Lymphocytes (%) (Auto) % (20.0-45.0) Monocytes (%) (Auto) % (1.0-10.0) Eosinophils (%) (Auto) % (0.0-3.0) Basophils (%) (Auto) % (0.0-2.0) Differential Total Cells Counted 100 Neutrophils % (Manual) 87 % (45-75) H Lymphocytes % (Manual) 5 % (20-45) L Monocytes % (Manual) 8 % (1-10) Eosinophils % (Manual) 0 % (0-3) Basophils % (Manual) 0 % (0-2) Band Neutrophils 0 % (0-8) Platelet Estimate Adequate Platelet Morphology Normal Hypochromasia 2+ Anisocytosis 1+ Sodium Level 141 MMOL/L (136-145) Potassium Level 4.1 MMOL/L (3.5-5.1) Chloride Level 107 MMOL/L (98-107) Carbon Dioxide Level 23 MMOL/L (21-32) Anion Gap 11 mmol/L (5-15) Blood Urea Nitrogen 13 mg/dL (7-18) Creatinine 0.5 MG/DL (0.55-1.30) L Estimat Glomerular Filtration Rate > 60 mL/min (>60) Glucose Level 151 MG/DL (74-106) H Calcium Level 8.3 MG/DL (8.5-10.1) L Troponin I 0.315 ng/mL (0.000-0.056) Vancomycin Level Trough 13.4 ug/mL (5.0-12.0) H Current Medications Medications (Trade) Dose Ordered Sig/Chance Route PRN Reason Start Time Stop Time Status Last Admin Dose Admin Acetaminophen/ Hydrocodone Bitart ([place] 5/325) 1 tab Q6H PRN ORAL For Pain 06/26/19 18:15 07/03/19 18:14 06/29/19 17:11 Albuterol/ Ipratropium (Albuterol/ Ipratropium) 3 ml Q6HRT HHN 06/26/19 19:00 07/01/19 18:59 06/29/19 19:20 Aspirin (Ecotrin) 81 mg DAILY ORAL 06/27/19 09:00 07/27/19 08:59 06/29/19 08:50 Atenolol (Tenormin) 12.5 mg DAILY ORAL 06/30/19 09:00 07/27/19 08:59 Atorvastatin Calcium (Lipitor) 10 mg BEDTIME ORAL 06/28/19 21:00 07/28/19 20:59 06/28/19 21:00 Escitalopram Oxalate (Lexapro) 10 mg DAILY ORAL 06/27/19 09:00 07/27/19 08:59 06/29/19 08:51 Finasteride (Proscar) 5 mg QHS ORAL 06/26/19 21:00 07/26/19 20:59 06/28/19 21:00 Heparin Sodium (Porcine) (Heparin 5000 units/ml) 5,000 units EVERY 12 HOURS SUBQ 06/26/19 21:00 07/26/19 20:59 06/29/19 08:52 Lorazepam (Ativan) 0.5 mg EVERY 8 HOURS PRN ORAL For Anxiety 06/28/19 23:45 07/05/19 23:44 06/29/19 08:51 Memantine (Namenda) 10 mg BID ORAL 06/27/19 09:00 07/27/19 08:59 06/29/19 17:10 Meropenem 1 gm/ Sodium Chloride 55 ml @ 110 mls/hr Q8H IVPB 06/26/19 18:00 07/01/19 17:59 06/29/19 17:06 Pantoprazole (Protonix) 40 mg Q12HR IVP 06/29/19 21:00 07/29/19 20:59 Polyethylene Glycol (Miralax) 17 gm DAILY ORAL 06/27/19 09:00 07/27/19 08:59 06/29/19 08:50 Promethazine HCl/ Dextromethorphan (Phenergan DM) 6.25 mg Q8H PRN ORAL For Cough 06/29/19 11:15 07/29/19 11:14 Sitagliptin Phosphate (Januvia) 100 mg ACBREAKFAST ORAL 06/27/19 06:30 07/27/19 06:29 06/29/19 06:27 Tamsulosin HCl (Flomax) 0.4 mg BEDTIME ORAL 06/26/19 21:00 07/26/19 20:59 06/28/19 21:00 Tiotropium [place] (Spiriva Inhaler) 1 puff DAILY INH 06/27/19 09:00 07/27/19 08:59 06/29/19 08:36 Trazodone HCl (Desyrel) 50 mg QHS ORAL 06/26/19 21:00 07/26/19 20:59 06/28/19 21:00 Vancomycin HCl (Vanco rx to dose) 1 ea DAILY PRN MISC Per rx protocol 06/26/19 14:45 07/26/19 14:44 Vancomycin HCl 750 mg/Sodium Chloride 275 ml @ 183.333 mls/hr Q12HR IVPB 06/28/19 21:00 07/03/19 20:59 06/29/19 09:53 Bety Saini M.D. Jun 29, 2019 22:01
[2019-06-29] MEDS: Tamsulosin 0.4mg cap ORAL SCH (22:17)
[2019-06-29] MEDS: TraZODone 50mg tab ORAL SCH (22:17)
[2019-06-30] VITALS: BP 101/55
[2019-06-30] MEDS: Albuterol/Ipratropium 3ml neb HHN SCH ×5 (00:10→20:10)
[2019-06-30] MEDS: Meropenem 1 GM in NS 55 ML IVPB SCH ×3 (02:00→18:20)
[2019-06-30 04:00] VITALS: BP 100/52
--- NOTE | 2019-06-30 07:45 | NUR ---
HAND-OFF: Report given to Karen GRAY.
[2019-06-30 07:51] LABS: BASOPHILS % (AUTO) 0.4 % (0.0-2.0); EOSINOPHILS % (AUTO) 4.6 % (0.0-3.0); HEMATOCRIT 27.7 % (42.0-52.0); HEMOGLOBIN 9.7 G/DL (14.2-18.0); LYMPHOCYTES % (AUTO) 12.4 % (20.0-45.0); MEAN CORPUSCULAR VOLUME 93 FL (80-99); MONOCYTES % (AUTO) 8.1 % (1.0-10.0); NEUTROPHILS % (AUTO) 74.5 % (45.0-75.0); PLATELET COUNT 293 K/UL (150-450); RED BLOOD COUNT 2.98 M/UL (4.70-6.10); RED CELL DISTRIBUTION WIDTH 13.3 % (11.6-14.8); WHITE BLOOD COUNT 11.2 K/UL (4.8-10.8)
[2019-06-30 08:00] VITALS: BP 112/73
[2019-06-30 08:16] LABS: ANION GAP 8 mmol/L (5-15); BLOOD UREA NITROGEN 12 mg/dL (7-18); CALCIUM 8.5 MG/DL (8.5-10.1); CARBON DIOXIDE 26 MMOL/L (21-32); CHLORIDE 108 MMOL/L (98-107); CREATININE 0.6 MG/DL (0.55-1.30); POTASSIUM 3.7 MMOL/L (3.5-5.1); SODIUM 141 MMOL/L (136-145)
--- NOTE | 2019-06-30 08:43 | General Progress Note ---
Assessment/Plan Status: stable Assessment/Plan: 1. Asp Pneumonia - cont IV abx. Aspiration precautions. family refused PEG tube placement. 2. Sepsis - improved. all blood cultures negative. cont IV abx. 3. Dehydration - resolved. D/C IVF. 4. Elevated Troponin 2nd to Demand Ischemia 2nd to sepsis. EF 65%. 5. Dementia - cont home meds. 6. BPH - cont home meds. 7. chronic pain syndrome - cont norco. 8. Depression - cont home meds. 9. DM II - cont Januvia 10. COPD - cont Duoneb and spiriva. Subjective Date patient seen: Jun 30, 2019 Time patient seen: 08:00 Constitutional: Reports: weakness HEENT: Reports: no symptoms Cardiovascular: Reports: no symptoms Respiratory: Reports: cough Gastrointestinal/Abdominal: Reports: no symptoms Genitourinary: Reports: no symptoms Neurologic/Psychiatric: Reports: no symptoms Endocrine: Reports: no symptoms Hematologic/Lymphatic: Reports: no symptoms Allergies: Coded Allergies: No Known Allergies (Unverified , 04/23/12) Subjective This morning patient is doing better and His WBC is continue to improve. His abd pain has resolved with increasing protonix. His family refused PEG tube placement and he is eating. No fever or chills. No nausea or vomiting. Objective Last 24 Hour Vital Signs Date Time Temp Pulse Resp B/P (MAP) Pulse Ox O2 Delivery O2 Flow Rate FiO2 06/30/19 08:09 93 24 96 Nasal Cannula 3.0 32 89 24 93 06/30/19 08:08 93 Nasal Cannula 3.0 32 06/30/19 04:00 89 06/30/19 04:00 97.7 83 19 100/52 (68) 96 06/30/19 00:10 84 16 98 Nasal Cannula 4.0 36 81 18 94 06/30/19 00:00 84 06/30/19 00:00 97.6 80 20 101/55 (70) 96 06/29/19 21:00 Nasal Cannula 2.0 06/29/19 20:00 97.9 86 18 102/50 (67) 95 06/29/19 19:21 82 20 96 Nasal Cannula 5.0 40 78 22 93 06/29/19 19:21 Nasal Cannula 5.0 40 06/29/19 16:24 84 06/29/19 15:44 98.2 84 20 95/43 (60) 95 06/29/19 11:55 96.8 85 20 97/44 (61) 96 06/29/19 11:45 86 06/29/19 09:00 88 98/49 06/29/19 09:00 Nasal Cannula 2.0 Intake and Output 06/29/19 06/30/19 19:00 07:00 Intake Total 825.000 ml 360 ml Balance 825.000 ml 360 ml Intake Oral 440 ml 360 ml IV Total 385.000 ml # Voids 3 3 Laboratory Tests 06/29/19 10:28: White Blood Count 13.0H, Red Blood Count 2.89L, Hemoglobin 9.2L, Hematocrit 27.1L, Mean Corpuscular Volume 94, Mean Corpuscular Hemoglobin 31.8H, Mean Corpuscular Hemoglobin Concent 34.0, Red Cell Distribution Width 13.0, Platelet Count 311, Mean Platelet Volume 5.7L, Neutrophils (%) (Auto) , Lymphocytes (%) ( Auto) , Monocytes (%) (Auto) , Eosinophils (%) (Auto) , Basophils (%) (Auto) , Differential Total Cells Counted 100, Neutrophils % (Manual) 87H, Lymphocytes % (Manual) 5L, Monocytes % (Manual) 8, Eosinophils % (Manual) 0, Basophils % ( Manual) 0, Band Neutrophils 0, Platelet Estimate Adequate, Platelet Morphology Normal, Hypochromasia 2+, Anisocytosis 1+, Sodium Level 141, Potassium Level 4.1 , Chloride Level 107, Carbon Dioxide Level 23, Anion Gap 11, Blood Urea Nitrogen 13, Creatinine 0.5L, Estimat Glomerular Filtration Rate > 60, Glucose Level 151H, Calcium Level 8.3L, Troponin I 0.315H 06/29/19 20:05: Vancomycin Level Trough 13.4H 06/30/19 06:35: White Blood Count 11.2H, Red Blood Count 2.98L, Hemoglobin 9.7L, Hematocrit 27.7L, Mean Corpuscular Volume 93, Mean Corpuscular Hemoglobin 32.6H, Mean Corpuscular Hemoglobin Concent 35.1, Red Cell Distribution Width 13.3, Platelet Count 293, Mean Platelet Volume 5.6L, Neutrophils (%) (Auto) 74.5, Lymphocytes ( %) (Auto) 12.4L, Monocytes (%) (Auto) 8.1, Eosinophils (%) (Auto) 4.6H, Basophils (%) (Auto) 0.4, Sodium Level 141, Potassium Level 3.7, Chloride Level 108H, Carbon Dioxide Level 26, Anion Gap 8, Blood Urea Nitrogen 12, Creatinine 0.6, Estimat Glomerular Filtration Rate > 60, Glucose Level 94, Calcium Level 8.5 Height (Feet): 5 Height (Inches): 7.00 Weight (Pounds): 99 General Appearance: no apparent distress, alert EENT: normal ENT inspection Neck: non-tender, normal alignment, supple Cardiovascular: normal peripheral pulses, normal rate, regular rhythm Respiratory/Chest: normal breath sounds, no respiratory distress Abdomen: normal bowel sounds, non tender, soft Extremities: normal range of motion, non-tender Edema: no edema noted Arm (L), no edema noted Arm (R), no edema noted Leg (L), no edema noted Leg (R), no edema noted Pedal (L), no edema noted Pedal (R), no edema noted Generalized Neurologic: alert, responsive Skin: warm/dry Pantera Benítez MD Jun 30, 2019 08:43
[2019-06-30] MEDS: Heparin 5000 units/ml inj SUBQ SCH ×2 (09:00→20:39)
[2019-06-30] MEDS: Vancomycin 750mg/NS 275ml IVPB SCH ×4 (09:07→20:38)
[2019-06-30] MEDS: Pantoprazole Inj IVP SCH ×2 (09:07→20:37)
[2019-06-30] MEDS: Miralax 17gm pkt ORAL SCH (09:07)
[2019-06-30] MEDS: Aspirin EC 81mg tab ORAL SCH (09:07)
[2019-06-30] MEDS: Memantine 10mg tab ORAL SCH ×2 (09:07→18:20)
[2019-06-30] MEDS: Atenolol 25mg tab ORAL SCH (09:08)
[2019-06-30 12:00] VITALS: BP 133/64
--- NOTE | 2019-06-30 12:22 | Infectious Diseases Prog Note ---
Assessment/Plan Problems: (1) Aspiration pneumonia Assessment & Plan: repeated CXR showed reticular densities in both lungs , continue meropenem and vancomycin empirically for 7-10 days , since no sputum was obtained for culture . aspiration precaution . now on special diet (2) Sepsis Assessment & Plan: suspect due to the above, improving with negative repeated blood culture x 2 . continue meropenem and vancomycin empirically for 7-10 days , monitor blood culture (3) Dehydration Assessment & Plan: with vomiting , continue ivf for hydration, monitor lytes (4) Respiratory tract congestion with cough Assessment & Plan: due to the above, supportive care and inhalers as needed (5) Acute encephalopathy Assessment & Plan: due to the above, continue antibiotics hydration , aspiration precaution (6) At high risk for aspiration Assessment & Plan: due to dementia recommend tube feeding since high risk for recurrent aspiration and developing pneumonia . D/W Daughter and Subjective ROS Limited/Unobtainable: Yes Allergies: Coded Allergies: No Known Allergies (Unverified , 04/23/12) Subjective He was lying in bed awake , comfortable , breathing ok, no SOB, no cough or phlegm , no fever or chills tolerated diet Objective Vital Signs Last 24 Hour Vital Signs Date Time Temp Pulse Resp B/P (MAP) Pulse Ox O2 Delivery O2 Flow Rate FiO2 06/30/19 09:08 93 112/73 06/30/19 09:05 Nasal Cannula 2.0 06/30/19 08:09 93 24 96 Nasal Cannula 3.0 32 89 24 93 06/30/19 08:08 93 Nasal Cannula 3.0 32 06/30/19 08:00 97.6 98 24 112/73 (86) 99 06/30/19 07:32 91 06/30/19 04:00 89 06/30/19 04:00 97.7 83 19 100/52 (68) 96 06/30/19 00:10 84 16 98 Nasal Cannula 4.0 36 81 18 94 06/30/19 00:00 84 06/30/19 00:00 97.6 80 20 101/55 (70) 96 06/29/19 21:00 Nasal Cannula 2.0 06/29/19 20:00 97.9 86 18 102/50 (67) 95 06/29/19 19:21 82 20 96 Nasal Cannula 5.0 40 78 22 93 06/29/19 19:21 Nasal Cannula 5.0 40 2/16/20 16:24 84 06/29/19 15:44 98.2 84 20 95/43 (60) 95 Height (Feet): 5 Height (Inches): 7.00 Weight (Pounds): 99 General Appearance: no acute distress, cachetic HEENT: normocephalic, atraumatic, anicteric, mucous membranes moist, PERRL Respiratory/Chest: chest wall non-tender, no respiratory distress, no accessory muscle use, decreased breath sounds, crackles/rales Cardiovascular: normal peripheral pulses, normal rate, regular rhythm, no gallop/murmur, no JVD Abdomen: normal bowel sounds, soft, non tender, no organomegaly, non distended , no mass, no scars Genitourinary: normal external genitalia Extremities: no cyanosis, no clubbing Skin: no rash, no lesions 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, 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, responsive Lymphatic: no neck adenopathy, no groin adenopathy Musculoskeletal: normal muscle bulk, no effusion Microbiology Date/Time Source Procedure Growth Status 06/28/19 14:45 Blood Blood Culture - Preliminary NO GROWTH AFTER 24 HOURS Resulted 06/28/19 14:30 Blood Blood Culture - Preliminary NO GROWTH AFTER 24 HOURS Resulted Laboratory Tests Test 06/29/19 20:05 06/30/19 06:35 Vancomycin Level Trough 13.4 ug/mL (5.0-12.0) H White Blood Count 11.2 K/UL (4.8-10.8) H Red Blood Count 2.98 M/UL (4.70-6.10) L Hemoglobin 9.7 G/DL (14.2-18.0) L Hematocrit 27.7 % (42.0-52.0) L Mean Corpuscular Volume 93 FL (80-99) Mean Corpuscular Hemoglobin 32.6 PG (27.0-31.0) H Mean Corpuscular Hemoglobin Concent 35.1 G/DL (32.0-36.0) Red Cell Distribution Width 13.3 % (11.6-14.8) Platelet Count 293 K/UL (150-450) Mean Platelet Volume 5.6 FL (6.5-10.1) L Neutrophils (%) (Auto) 74.5 % (45.0-75.0) Lymphocytes (%) (Auto) 12.4 % (20.0-45.0) L Monocytes (%) (Auto) 8.1 % (1.0-10.0) Eosinophils (%) (Auto) 4.6 % (0.0-3.0) H Basophils (%) (Auto) 0.4 % (0.0-2.0) Sodium Level 141 MMOL/L (136-145) Potassium Level 3.7 MMOL/L (3.5-5.1) Chloride Level 108 MMOL/L (98-107) H Carbon Dioxide Level 26 MMOL/L (21-32) Anion Gap 8 mmol/L (5-15) Blood Urea Nitrogen 12 mg/dL (7-18) Creatinine 0.6 MG/DL (0.55-1.30) Estimat Glomerular Filtration Rate > 60 mL/min (>60) Glucose Level 94 MG/DL (74-106) Calcium Level 8.5 MG/DL (8.5-10.1) Current Medications Medications (Trade) Dose Ordered Sig/Chance Route PRN Reason Start Time Stop Time Status Last Admin Dose Admin Acetaminophen/ Hydrocodone Bitart ([place] 5/325) 1 tab Q6H PRN ORAL For Pain 06/26/19 18:15 07/03/19 18:14 06/29/19 17:11 Albuterol/ Ipratropium (Albuterol/ Ipratropium) 3 ml Q6HRT HHN 06/26/19 19:00 07/01/19 18:59 06/30/19 08:10 Aspirin (Ecotrin) 81 mg DAILY ORAL 06/27/19 09:00 07/27/19 08:59 06/30/19 09:07 Atenolol (Tenormin) 12.5 mg DAILY ORAL 06/30/19 09:00 07/27/19 08:59 06/30/19 09:08 Atorvastatin Calcium (Lipitor) 10 mg BEDTIME ORAL 06/28/19 21:00 07/28/19 20:59 06/29/19 22:17 Escitalopram Oxalate (Lexapro) 10 mg DAILY ORAL 06/27/19 09:00 07/27/19 08:59 06/30/19 09:07 Finasteride (Proscar) 5 mg QHS ORAL 06/26/19 21:00 07/26/19 20:59 06/29/19 22:17 Heparin Sodium (Porcine) (Heparin 5000 units/ml) 5,000 units EVERY 12 HOURS SUBQ 06/26/19 21:00 07/26/19 20:59 06/29/19 08:52 Lorazepam (Ativan) 0.5 mg EVERY 8 HOURS PRN ORAL For Anxiety 06/28/19 23:45 07/05/19 23:44 06/29/19 08:51 Memantine (Namenda) 10 mg BID ORAL 06/27/19 09:00 07/27/19 08:59 06/30/19 09:07 Meropenem 1 gm/ Sodium Chloride 55 ml @ 110 mls/hr Q8H IVPB 06/26/19 18:00 07/01/19 17:59 06/30/19 02:00 Pantoprazole (Protonix) 40 mg Q12HR IVP 06/29/19 21:00 07/29/19 20:59 06/30/19 09:07 Polyethylene Glycol (Miralax) 17 gm DAILY ORAL 06/27/19 09:00 07/27/19 08:59 06/30/19 09:07 Promethazine HCl/ Dextromethorphan (Phenergan DM) 6.25 mg Q8H PRN ORAL For Cough 06/29/19 11:15 07/29/19 11:14 Sitagliptin Phosphate (Januvia) 100 mg ACBREAKFAST ORAL 06/27/19 06:30 07/27/19 06:29 06/30/19 06:41 Tamsulosin HCl (Flomax) 0.4 mg BEDTIME ORAL 06/26/19 21:00 07/26/19 20:59 06/29/19 22:17 Tiotropium [place] (Spiriva Inhaler) 1 puff DAILY INH 06/27/19 09:00 07/27/19 08:59 06/30/19 09:17 Trazodone HCl (Desyrel) 50 mg QHS ORAL 06/26/19 21:00 07/26/19 20:59 06/29/19 22:17 Vancomycin HCl (Vanco rx to dose) 1 ea DAILY PRN MISC Per rx protocol 06/26/19 14:45 07/26/19 14:44 Vancomycin HCl 750 mg/Sodium Chloride 275 ml @ 183.333 mls/hr Q12HR IVPB 06/28/19 21:00 07/03/19 20:59 06/30/19 09:07 Bety Saini M.D. Jun 30, 2019 12:22
--- NOTE | 2019-06-30 13:23 | Cardiac Electrophysiology PN ---
Assessment/Plan Assessment/Plan 1. Elevated troponin. EKG does not show any acute ischemic changes. Echocardiogram EF 65%.Repeat troponin mildly elevated and no CP. Continue aspirin, atenolol and Lipitor 2. Hypertension, on atenolol 25 mg daily. 3. Elevated BNP. Echocardiogram Nl EF 65% 4. Pneumonia and sepsis, on iv Abx per Dr. Saini. 5. Dementia and agitation DW RN Subjective Subjective Still complains of Cough, headache and body ache. Remained in SR. DC planning tomorrow Objective Last 24 Hour Vital Signs Date Time Temp Pulse Resp B/P (MAP) Pulse Ox O2 Delivery O2 Flow Rate FiO2 06/30/19 09:08 93 112/73 06/30/19 09:05 Nasal Cannula 2.0 06/30/19 08:09 93 24 96 Nasal Cannula 3.0 32 89 24 93 06/30/19 08:08 93 Nasal Cannula 3.0 32 06/30/19 08:00 97.6 98 24 112/73 (86) 99 06/30/19 07:32 91 06/30/19 04:00 89 06/30/19 04:00 97.7 83 19 100/52 (68) 96 06/30/19 00:10 84 16 98 Nasal Cannula 4.0 36 81 18 94 06/30/19 00:00 84 06/30/19 00:00 97.6 80 20 101/55 (70) 96 06/29/19 21:00 Nasal Cannula 2.0 06/29/19 20:00 97.9 86 18 102/50 (67) 95 06/29/19 19:21 82 20 96 Nasal Cannula 5.0 40 78 22 93 06/29/19 19:21 Nasal Cannula 5.0 40 06/29/19 16:24 84 06/29/19 15:44 98.2 84 20 95/43 (60) 95 Intake and Output 06/29/19 06/30/19 19:00 07:00 Intake Total 825.000 ml 360 ml Balance 825.000 ml 360 ml Intake Oral 440 ml 360 ml IV Total 385.000 ml # Voids 3 3 Laboratory Tests Test 06/29/19 20:05 06/30/19 06:35 Vancomycin Level Trough 13.4 ug/mL (5.0-12.0) H White Blood Count 11.2 K/UL (4.8-10.8) H Red Blood Count 2.98 M/UL (4.70-6.10) L Hemoglobin 9.7 G/DL (14.2-18.0) L Hematocrit 27.7 % (42.0-52.0) L Mean Corpuscular Volume 93 FL (80-99) Mean Corpuscular Hemoglobin 32.6 PG (27.0-31.0) H Mean Corpuscular Hemoglobin Concent 35.1 G/DL (32.0-36.0) Red Cell Distribution Width 13.3 % (11.6-14.8) Platelet Count 293 K/UL (150-450) Mean Platelet Volume 5.6 FL (6.5-10.1) L Neutrophils (%) (Auto) 74.5 % (45.0-75.0) Lymphocytes (%) (Auto) 12.4 % (20.0-45.0) L Monocytes (%) (Auto) 8.1 % (1.0-10.0) Eosinophils (%) (Auto) 4.6 % (0.0-3.0) H Basophils (%) (Auto) 0.4 % (0.0-2.0) Sodium Level 141 MMOL/L (136-145) Potassium Level 3.7 MMOL/L (3.5-5.1) Chloride Level 108 MMOL/L (98-107) H Carbon Dioxide Level 26 MMOL/L (21-32) Anion Gap 8 mmol/L (5-15) Blood Urea Nitrogen 12 mg/dL (7-18) Creatinine 0.6 MG/DL (0.55-1.30) Estimat Glomerular Filtration Rate > 60 mL/min (>60) Glucose Level 94 MG/DL (74-106) Calcium Level 8.5 MG/DL (8.5-10.1) Microbiology Date/Time Source Procedure Growth Status 06/28/19 14:45 Blood Blood Culture - Preliminary NO GROWTH AFTER 24 HOURS Resulted 06/28/19 14:30 Blood Blood Culture - Preliminary NO GROWTH AFTER 24 HOURS Resulted Objective HEAD AND NECK: No JVD. LUNGS: Coarse rhonchi bilaterally with decreased breath sounds. CARDIOVASCULAR: Shows regular S1 and S2 with no gallop or murmur. Slightly tachycardic. ABDOMEN: Soft. EXTREMITIES: No pitting edema. Polo Julien MD Jun 30, 2019 13:23
--- NOTE | 2019-06-30 13:27 | NUR ---
CASE MANAGEMENT:REVIEW SI;ASPIRATION PNA. SEPSIS. ELEVATED TROPONIN. 97.6 98 24 112/73 93% 3L NC FIO2 32% WBC 11.2 H/H 9.7/27.7 TROP 0.315 IS;VANCOMYCIN IV Q12 HRS SPIRIVA INH QD DUO NEB HHN Q6HRT MEROPENEM IV Q8 HRS PHENERGAN DM PO Q8 HRS PRN TELE STATUS PLAN; REPEAT TROPONIN. IV ABX. DCP;FROM [facility]
--- NOTE | 2019-06-30 13:32 | Pulmonology Progress Note ---
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 PROBLEM LIST: 1. Healthcare-associated pneumonia. 2. COPD. 3. Bronchiectasis. 4. Pulmonary nodularity. 5. Likely aspiration. 6. Dysphagia. 7. Advanced dementia. 8. Hypertension. 9. Hyperlipidemia. 10. BPH. 11. NSTEMI, ? demand ischemia TREATMENT PLAN: 1. Optimize pulmonary hygiene/mobilize as tolerated. 2. O2 p.r.n. to keep sats greater than 90%. 3. Continue Spiriva. 4. DuoNebs [id number] and p.r.n. 5. Broad-spectrum antimicrobials per ID. 6. Monitor volumes and renal function. 7. Aspiration precautions, Speech Pathology recommendations, family refusing gastrostomy tube placement. 8. F/U cards recs 9. DVT prophylaxis, heparin subcu. 10. The patient is Full Code, continue to address goals of care. Particularly given the patient's advanced dementia and the fact that the family wishes to feeding despite his underlying dementia and a PEG is not within the goals of care, I feel that DNAR status would be appropriate. Subjective Allergies: Coded Allergies: No Known Allergies (Unverified , 04/23/12) Subjective AFVSS on RA Per RN less cough cough + SOB no FC no CP NAEO otherwise Objective Last 24 Hour Vital Signs Date Time Temp Pulse Resp B/P (MAP) Pulse Ox O2 Delivery O2 Flow Rate FiO2 06/30/19 09:08 93 112/73 06/30/19 09:05 Nasal Cannula 2.0 06/30/19 08:09 93 24 96 Nasal Cannula 3.0 32 89 24 93 06/30/19 08:08 93 Nasal Cannula 3.0 32 06/30/19 08:00 97.6 98 24 112/73 (86) 99 06/30/19 07:32 91 06/30/19 04:00 89 06/30/19 04:00 97.7 83 19 100/52 (68) 96 06/30/19 00:10 84 16 98 Nasal Cannula 4.0 36 81 18 94 06/30/19 00:00 84 06/30/19 00:00 97.6 80 20 101/55 (70) 96 06/29/19 21:00 Nasal Cannula 2.0 06/29/19 20:00 97.9 86 18 102/50 (67) 95 06/29/19 19:21 82 20 96 Nasal Cannula 5.0 40 78 22 93 06/29/19 19:21 Nasal Cannula 5.0 40 06/29/19 16:24 84 06/29/19 15:44 98.2 84 20 95/43 (60) 95 Intake and Output 06/29/19 06/30/19 19:00 07:00 Intake Total 825.000 ml 360 ml Balance 825.000 ml 360 ml Intake Oral 440 ml 360 ml IV Total 385.000 ml # Voids 3 3 General Appearance: cachetic - confused HEENT: normocephalic, atraumatic, anicteric, mucous membranes moist Respiratory/Chest: chest wall non-tender, lungs clear, normal breath sounds, no respiratory distress, no accessory muscle use Cardiovascular: normal peripheral pulses, normal rate, regular rhythm Abdomen: normal bowel sounds, soft, non tender, no organomegaly, non distended , no mass Extremities: no cyanosis, no clubbing, no edema Microbiology Date/Time Source Procedure Growth Status 06/28/19 14:45 Blood Blood Culture - Preliminary NO GROWTH AFTER 24 HOURS Resulted 06/28/19 14:30 Blood Blood Culture - Preliminary NO GROWTH AFTER 24 HOURS Resulted Laboratory Tests 06/29/19 20:05: Vancomycin Level Trough 13.4H 06/30/19 06:35: White Blood Count 11.2H, Red Blood Count 2.98L, Hemoglobin 9.7L, Hematocrit 27.7L, Mean Corpuscular Volume 93, Mean Corpuscular Hemoglobin 32.6H, Mean Corpuscular Hemoglobin Concent 35.1, Red Cell Distribution Width 13.3, Platelet Count 293, Mean Platelet Volume 5.6L, Neutrophils (%) (Auto) 74.5, Lymphocytes ( %) (Auto) 12.4L, Monocytes (%) (Auto) 8.1, Eosinophils (%) (Auto) 4.6H, Basophils (%) (Auto) 0.4, Sodium Level 141, Potassium Level 3.7, Chloride Level 108H, Carbon Dioxide Level 26, Anion Gap 8, Blood Urea Nitrogen 12, Creatinine 0.6, Estimat Glomerular Filtration Rate > 60, Glucose Level 94, Calcium Level 8.5 Current Medications Medications (Trade) Dose Ordered Sig/Chance Route PRN Reason Start Time Stop Time Status Last Admin Dose Admin Acetaminophen/ Hydrocodone Bitart (Davy 5/325) 1 tab Q6H PRN ORAL For Pain 06/26/19 18:15 07/03/19 18:14 06/29/19 17:11 Albuterol/ Ipratropium (Albuterol/ Ipratropium) 3 ml Q6HRT HHN 06/26/19 19:00 07/01/19 18:59 06/30/19 08:10 Aspirin (Ecotrin) 81 mg DAILY ORAL 06/27/19 09:00 07/27/19 08:59 06/30/19 09:07 Atenolol (Tenormin) 12.5 mg DAILY ORAL 06/30/19 09:00 07/27/19 08:59 06/30/19 09:08 Atorvastatin Calcium (Lipitor) 10 mg BEDTIME ORAL 06/28/19 21:00 07/28/19 20:59 06/29/19 22:17 Escitalopram Oxalate (Lexapro) 10 mg DAILY ORAL 06/27/19 09:00 07/27/19 08:59 06/30/19 09:07 Finasteride (Proscar) 5 mg QHS ORAL 06/26/19 21:00 07/26/19 20:59 06/29/19 22:17 Heparin Sodium (Porcine) (Heparin 5000 units/ml) 5,000 units EVERY 12 HOURS SUBQ 06/26/19 21:00 07/26/19 20:59 06/29/19 08:52 Lorazepam (Ativan) 0.5 mg EVERY 8 HOURS PRN ORAL For Anxiety 06/28/19 23:45 07/05/19 23:44 06/29/19 08:51 Memantine (Namenda) 10 mg BID ORAL 06/27/19 09:00 07/27/19 08:59 06/30/19 09:07 Meropenem 1 gm/ Sodium Chloride 55 ml @ 110 mls/hr Q8H IVPB 06/26/19 18:00 07/01/19 17:59 06/30/19 02:00 Pantoprazole (Protonix) 40 mg Q12HR IVP 06/29/19 21:00 07/29/19 20:59 06/30/19 09:07 Polyethylene Glycol (Miralax) 17 gm DAILY ORAL 06/27/19 09:00 07/27/19 08:59 06/30/19 09:07 Promethazine HCl/ Dextromethorphan (Phenergan DM) 6.25 mg Q8H PRN ORAL For Cough 06/29/19 11:15 07/29/19 11:14 Sitagliptin Phosphate (Januvia) 100 mg ACBREAKFAST ORAL 06/27/19 06:30 07/27/19 06:29 06/30/19 06:41 Tamsulosin HCl (Flomax) 0.4 mg BEDTIME ORAL 06/26/19 21:00 07/26/19 20:59 06/29/19 22:17 Tiotropium [place] (Spiriva Inhaler) 1 puff DAILY INH 06/27/19 09:00 07/27/19 08:59 06/30/19 09:17 Trazodone HCl (Desyrel) 50 mg QHS ORAL 06/26/19 21:00 07/26/19 20:59 06/29/19 22:17 Vancomycin HCl (Vanco rx to dose) 1 ea DAILY PRN MISC Per rx protocol 06/26/19 14:45 07/26/19 14:44 Vancomycin HCl 750 mg/Sodium Chloride 275 ml @ 183.333 mls/hr Q12HR IVPB 06/28/19 21:00 07/03/19 20:59 06/30/19 09:07 Alonzo Cuevas MD Jun 30, 2019 13:32
[2019-06-30 16:00] VITALS: BP 121/60
--- NOTE | 2019-06-30 16:28 | NUR ---
NURSE NOTES:WOUND CARE NOTES:Pt presented on admission with non-blanching erythema R heel. R heel is boggy but non-tender when palpated.L heel is blanchable and soft. Historical scar noted to L trochanter. NO evidence of skin breakdown sacrum or buttocks.Moisture barrier paste applied to scrotum and buttocks . Sacrum covered with Optifoam drsg to minimize friction. Cavilon skin barrier applied to both heels . Each heel covered with Optifoam drsg. Pt positioned on side with pillow. Both heels floated off mattress with pillow.
--- NOTE | 2019-06-30 19:00 | Consultation ---
DATE OF CONSULTATION: 06/28/2019 CARDIOLOGY CONSULTATION CONSULTING PHYSICIAN: Polo Julien M.D. REFERRING PHYSICIAN: Pantera Benítez M.D. REASON FOR CONSULTATION: Elevated troponin, shortness of breath, and elevated brain natriuretic peptide, rule out congestive heart failure. HISTORY OF PRESENT ILLNESS: The patient is a very pleasant 89-year-old [place] gentleman with history of hypertension, benign prostatic hypertrophy, depression, dementia, and chronic pain syndrome, who was brought in [facility] for nausea and vomiting as well as increasing shortness of breath. The patient was recently diagnosed with pneumonia at the rehab and was started on doxycycline and cefepime. His saturation dropped after vomiting. The patient was transferred to [place] for further evaluation. The patient was evaluated by Infectious Disease specialist and was started on IV antibiotic; however, the patient was noted to have increasing brain natriuretic peptide as well as elevated troponin, but initial troponin was negative. At the time of my evaluation, the patient denies any chest pain, but continues to have cough and shortness of breath. REVIEW OF SYSTEMS: Negative other than what was mentioned in history of present illness. PAST MEDICAL HISTORY: As mentioned above. PAST SURGICAL HISTORY: Negative. MEDICATIONS: Per reconciliation. ALLERGIES: He has no known drug allergies. FAMILY HISTORY: Noncontributory. SOCIAL HISTORY: He lives in a assisted. Does not smoke or drink alcohol. PHYSICAL EXAMINATION: VITAL SIGNS: Show blood pressure 127/62, pulse is 106, respirations 18, and temperature 97.8. HEAD AND NECK: Shows no JVD. LUNGS: Coarse rhonchi bilaterally with decreased breath sounds. CARDIOVASCULAR: Shows regular S1 and S2 with no gallop or murmur. Slightly tachycardic. ABDOMEN: Soft. EXTREMITIES: No pitting edema. LABORATORY AND DIAGNOSTIC DATA: His labs show initial troponin that was negative. Second troponin is 0.064. BNP is ____. Sodium 137, potassium 3.9, BUN of 9, creatinine 0.6, and glucose 127. White count is 18.4, hemoglobin 10.2, hematocrit 29.2, and platelet count 318,000. ASSESSMENT AND PLAN: 1. Elevated troponin. The EKG did not show any acute ischemic changes. Repeat the EKG and echocardiogram and repeat troponin. We will continue the patient on aspirin and atenolol and add low-dose statin to his medical regimen. 2. Hypertension, on atenolol 25 mg daily. 3. Elevated BNP. We will get an echocardiogram to evaluate for ejection fraction and wall motion abnormality. 4. Pneumonia and sepsis, on meropenem and vancomycin per Dr. Saini. 5. Dementia. Thank you very much for allowing me to participate in the care of this patient. Please do not hesitate to contact me for any questions regarding my evaluation. Polo Julien M.D. DR: VAISHALI JOB#: [id number] CC:
--- NOTE | 2019-06-30 19:15 | NUR ---
NURSE NOTES: Received report from MARINA Moser. Patient is asleep, lying in semi frias's; resting comfortably. A/Ox3. Denies pain at this time. No signs of acute distress noted. Checked IV site and flushed. No erythema, bleeding or infiltration noted. On khalil catheter draining well to gravity. Bed at lowest position, brakes on, [id number]. Call light within reach. Will continue to monitor. Addendum: 06/30/19 at 2210 by Tila Shepard RN No khalil catheter noted.
--- NOTE | 2019-06-30 19:36 | NUR ---
HAND-OFF: Report given to Tila Zelaya.
[2019-06-30 20:00] VITALS: BP 118/51
[2019-06-30] MEDS: Tamsulosin 0.4mg cap ORAL SCH (20:37)
[2019-06-30] MEDS: TraZODone 50mg tab ORAL SCH (20:37)
--- NOTE | 2019-06-30 23:53 | NUR ---
HAND-OFF: Report given to MARINA Shea. Plan of care endorsed.
[2019-07-01] VITALS: BP 120/78
--- NOTE | 2019-07-01 | NUR ---
NURSE NOTES: Report received from MARINA Adorno. Observed pt sleeping in the bed. SR on monitoring coordinator. On 2L NC, with no SOB. IV on R H 22G, SL, asymptomatic. No acute distress noted at this time. Bed in the lowest position. Side rails up x3. Call light within reach. Will continue to monitor.
[2019-07-01] MEDS: Albuterol/Ipratropium 3ml neb HHN SCH ×3 (00:58→13:00)
[2019-07-01] MEDS: Meropenem 1 GM in NS 55 ML IVPB SCH ×2 (01:39→09:00)
[2019-07-01 04:00] VITALS: BP 112/64
--- NOTE | 2019-07-01 05:45 | NUR ---
NURSE NOTES: Pt refused med, explained risks and benefits, and still refused. Pt mildly agitated, but no acute distress noted at this time.
--- NOTE | 2019-07-01 07:30 | NUR ---
NURSE NOTES: Received pt from JASKARAN GRAY, Pt is awake and alert, pt has NC 2LMP. Pt has intact iv access RH 22G SL. A MULLING MACHINE OPERATOR is feeding pt. Pt is on continues heart monitoring. all needs attended, bed is locked and is in the lowest position, call light within easy reach. will continue to monitor.
[2019-07-01 07:38] LABS: BASOPHILS % (AUTO) 0.5 % (0.0-2.0); EOSINOPHILS % (AUTO) 3.7 % (0.0-3.0); HEMATOCRIT 28.5 % (42.0-52.0); HEMOGLOBIN 9.6 G/DL (14.2-18.0); LYMPHOCYTES % (AUTO) 14.5 % (20.0-45.0); MEAN CORPUSCULAR VOLUME 93 FL (80-99); MONOCYTES % (AUTO) 7.1 % (1.0-10.0); NEUTROPHILS % (AUTO) 74.2 % (45.0-75.0); PLATELET COUNT 331 K/UL (150-450); RED BLOOD COUNT 3.05 M/UL (4.70-6.10); RED CELL DISTRIBUTION WIDTH 13.2 % (11.6-14.8); WHITE BLOOD COUNT 8.9 K/UL (4.8-10.8)
--- NOTE | 2019-07-01 07:38 | NUR ---
HAND-OFF: Report given to MAIRNA Mcmillan. No acute distress noted at this time.
[2019-07-01 07:56] LABS: ANION GAP 9 mmol/L (5-15); BLOOD UREA NITROGEN 8 mg/dL (7-18); CALCIUM 8.5 MG/DL (8.5-10.1); CARBON DIOXIDE 26 MMOL/L (21-32); CHLORIDE 105 MMOL/L (98-107); CREATININE 0.5 MG/DL (0.55-1.30); POTASSIUM 3.5 MMOL/L (3.5-5.1); SODIUM 140 MMOL/L (136-145)
[2019-07-01 08:00] VITALS: BP 134/66
[2019-07-01] MEDS: Miralax 17gm pkt ORAL SCH (08:55)
[2019-07-01] MEDS: Memantine 10mg tab ORAL SCH (08:55)
[2019-07-01] MEDS: HYDROcodone/Acetamin 5/325 tab ORAL PRN (08:56)
[2019-07-01] MEDS: Aspirin EC 81mg tab ORAL SCH (08:56)
[2019-07-01] MEDS: Atenolol 25mg tab ORAL SCH (08:56)
[2019-07-01] MEDS: Pantoprazole Inj IVP SCH (08:56)
--- NOTE | 2019-07-01 08:56 | General Progress Note ---
Assessment/Plan Status: stable Assessment/Plan: 1. Asp Pneumonia - cont IV abx. Aspiration precautions. family refused PEG tube placement. D/C back to [facility] today. 2. Sepsis - improved. all blood cultures negative. cont IV abx. 3. Dehydration - resolved. 4. Elevated Troponin 2nd to Demand Ischemia 2nd to sepsis. EF 65%. 5. Dementia - cont home meds. 6. BPH - cont home meds. 7. chronic pain syndrome - cont norco. 8. Depression - cont home meds. 9. DM II - cont Januvia 10. COPD - cont Duoneb and spiriva. Subjective Date patient seen: Jul 01, 2019 Time patient seen: 08:45 Constitutional: Reports: weakness HEENT: Reports: no symptoms Cardiovascular: Reports: no symptoms Respiratory: Reports: cough Gastrointestinal/Abdominal: Reports: no symptoms Genitourinary: Reports: no symptoms Neurologic/Psychiatric: Reports: no symptoms Endocrine: Reports: no symptoms Hematologic/Lymphatic: Reports: no symptoms Allergies: Coded Allergies: No Known Allergies (Unverified , 04/23/12) Subjective This morning patient is doing better and his coughing has improved as well. His family refused PEG tube placement and he is eating. No fever or chills. No nausea or vomiting. Objective Last 24 Hour Vital Signs Date Time Temp Pulse Resp B/P (MAP) Pulse Ox O2 Delivery O2 Flow Rate FiO2 07/01/19 08:02 95 Nasal Cannula 4.0 36 07/01/19 08:01 79 20 98 Nasal Cannula 4.0 36 76 20 94 07/01/19 08:00 97.7 89 20 134/66 (88) 97 07/01/19 04:00 84 07/01/19 04:00 97.3 84 28 112/64 (80) 95 07/01/19 00:58 79 20 98 Nasal Cannula 4.0 36 76 20 94 07/01/19 00:00 97.5 78 25 120/78 (92) 95 07/01/19 00:00 80 06/30/19 21:00 Nasal Cannula 2.0 06/30/19 20:12 95 Nasal Cannula 4.0 36 06/30/19 20:10 72 20 99 Nasal Cannula 4.0 36 70 20 95 06/30/19 20:00 68 06/30/19 20:00 96.8 75 20 118/51 (73) 95 06/30/19 16:00 97.9 74 20 121/60 (80) 98 06/30/19 15:31 76 06/30/19 13:35 71 24 99 Nasal Cannula 3.0 32 68 24 97 06/30/19 12:00 97.9 73 22 133/64 (87) 97 06/30/19 11:46 70 06/30/19 09:08 93 112/73 06/30/19 09:05 Nasal Cannula 2.0 Intake and Output 06/30/19 07/01/19 19:00 07:00 Intake Total 236 ml 360 ml Output Total 1100 ml Balance 236 ml -740 ml Intake Oral 236 ml 360 ml Output Urine Total 1100 ml # Voids 1 Laboratory Tests 06/30/19 20:10: Vancomycin Level Trough 18.3H 07/01/19 06:58: White Blood Count 8.9, Red Blood Count 3.05L, Hemoglobin 9.6L, Hematocrit 28.5L , Mean Corpuscular Volume 93, Mean Corpuscular Hemoglobin 31.5H, Mean Corpuscular Hemoglobin Concent 33.7, Red Cell Distribution Width 13.2, Platelet Count 331, Mean Platelet Volume 5.1L, Neutrophils (%) (Auto) 74.2, Lymphocytes ( %) (Auto) 14.5L, Monocytes (%) (Auto) 7.1, Eosinophils (%) (Auto) 3.7H, Basophils (%) (Auto) 0.5, Sodium Level 140, Potassium Level 3.5, Chloride Level 105, Carbon Dioxide Level 26, Anion Gap 9, Blood Urea Nitrogen 8, Creatinine 0.5L, Estimat Glomerular Filtration Rate > 60, Glucose Level 99, Calcium Level 8.5, Troponin I [Pending] Height (Feet): 5 Height (Inches): 7.00 Weight (Pounds): 99 General Appearance: no apparent distress, alert EENT: normal ENT inspection Neck: non-tender, supple Cardiovascular: normal peripheral pulses, normal rate, regular rhythm Respiratory/Chest: lungs clear, normal breath sounds, no respiratory distress Abdomen: normal bowel sounds, non tender, soft Extremities: normal range of motion, non-tender Neurologic: alert, responsive Skin: warm/dry Pantera Beíntez MD Jul 01, 2019 08:56
[2019-07-01] MEDS: Vancomycin 750mg/NS 275ml IVPB SCH ×2 (08:57)
[2019-07-01] MEDS: Heparin 5000 units/ml inj SUBQ SCH (09:00)
--- NOTE | 2019-07-01 09:00 | NUR ---
NURSE NOTES: Dr BENNETT visited pt and he is aware about troponin and other lab results and V/S, he stated all ok, no new order to RN. Will continue to monitor.
[2019-07-01] MEDS ORDERED: DUONEB 0.5-3(2.53 ML HHN (09:02)
[2019-07-01] MEDS ORDERED: Pantoprazole IVP (09:02)
[2019-07-01] MEDS ORDERED: LIPITOR10 MG ORAL (09:02)
[2019-07-01] MEDS ORDERED: ATENOLOL25 MG ORAL (09:04)
[2019-07-01] MEDS ORDERED: MEROPENEM1 GM IV (09:06)
[2019-07-01] MEDS ORDERED: VANCOMYCIN750 MG/150 IV (09:07)
--- NOTE | 2019-07-01 10:05 | Cardiac Electrophysiology PN ---
Assessment/Plan Assessment/Plan 1. Elevated troponin. EKG does not show any acute ischemic changes. Echocardiogram EF 65%.Repeat troponin mildly elevated and no CP. Continue aspirin, atenolol and Lipitor 2. Hypertension, on atenolol 25 mg daily. 3. Elevated BNP. Echo Nl EF 65% 4. Pneumonia and sepsis, on iv Abx per Dr. Saini. 5. Dementia and agitation DW RN and Dr Jackelin DEXTER to DC Subjective Subjective Remained in SR. DC planning to [facility] in progress Objective Last 24 Hour Vital Signs Date Time Temp Pulse Resp B/P (MAP) Pulse Ox O2 Delivery O2 Flow Rate FiO2 07/01/19 09:26 97.7 07/01/19 08:56 79 134/66 07/01/19 08:02 95 Nasal Cannula 4.0 36 07/01/19 08:01 79 20 98 Nasal Cannula 4.0 36 76 20 94 07/01/19 08:00 97.7 89 20 134/66 (88) 97 07/01/19 04:00 84 07/01/19 04:00 97.3 84 28 112/64 (80) 95 07/01/19 00:58 79 20 98 Nasal Cannula 4.0 36 76 20 94 07/01/19 00:00 97.5 78 25 120/78 (92) 95 07/01/19 00:00 80 06/30/19 21:00 Nasal Cannula 2.0 06/30/19 20:12 95 Nasal Cannula 4.0 36 06/30/19 20:10 72 20 99 Nasal Cannula 4.0 36 70 20 95 06/30/19 20:00 68 06/30/19 20:00 96.8 75 20 118/51 (73) 95 06/30/19 16:00 97.9 74 20 121/60 (80) 98 06/30/19 15:31 76 06/30/19 13:35 71 24 99 Nasal Cannula 3.0 32 68 24 97 06/30/19 12:00 97.9 73 22 133/64 (87) 97 06/30/19 11:46 70 Intake and Output 06/30/19 07/01/19 19:00 07:00 Intake Total 236 ml 360 ml Output Total 1100 ml Balance 236 ml -740 ml Intake Oral 236 ml 360 ml Output Urine Total 1100 ml # Voids 1 Laboratory Tests Test 06/30/19 20:10 07/01/19 06:58 Vancomycin Level Trough 18.3 ug/mL (5.0-12.0) H White Blood Count 8.9 K/UL (4.8-10.8) Red Blood Count 3.05 M/UL (4.70-6.10) L Hemoglobin 9.6 G/DL (14.2-18.0) L Hematocrit 28.5 % (42.0-52.0) L Mean Corpuscular Volume 93 FL (80-99) Mean Corpuscular Hemoglobin 31.5 PG (27.0-31.0) H Mean Corpuscular Hemoglobin Concent 33.7 G/DL (32.0-36.0) Red Cell Distribution Width 13.2 % (11.6-14.8) Platelet Count 331 K/UL (150-450) Mean Platelet Volume 5.1 FL (6.5-10.1) L Neutrophils (%) (Auto) 74.2 % (45.0-75.0) Lymphocytes (%) (Auto) 14.5 % (20.0-45.0) L Monocytes (%) (Auto) 7.1 % (1.0-10.0) Eosinophils (%) (Auto) 3.7 % (0.0-3.0) H Basophils (%) (Auto) 0.5 % (0.0-2.0) Sodium Level 140 MMOL/L (136-145) Potassium Level 3.5 MMOL/L (3.5-5.1) Chloride Level 105 MMOL/L (98-107) Carbon Dioxide Level 26 MMOL/L (21-32) Anion Gap 9 mmol/L (5-15) Blood Urea Nitrogen 8 mg/dL (7-18) Creatinine 0.5 MG/DL (0.55-1.30) L Estimat Glomerular Filtration Rate > 60 mL/min (>60) Glucose Level 99 MG/DL (74-106) Calcium Level 8.5 MG/DL (8.5-10.1) Troponin I 0.175 ng/mL (0.000-0.056) Microbiology Date/Time Source Procedure Growth Status 06/28/19 14:45 Blood Blood Culture - Preliminary NO GROWTH AFTER 48 HOURS Resulted 06/28/19 14:30 Blood Blood Culture - Preliminary NO GROWTH AFTER 48 HOURS Resulted Objective HEAD AND NECK: No JVD. LUNGS: Coarse rhonchi bilaterally with decreased breath sounds. CARDIOVASCULAR: Shows regular S1 and S2 with no gallop or murmur. Slightly tachycardic. ABDOMEN: Soft. EXTREMITIES: No pitting edema. Polo Julien MD Jul 01, 2019 10:05
[2019-07-01] MEDS: LORazepam 0.5mg tab ORAL PRN (10:15)
--- NOTE | 2019-07-01 11:58 | NUR ---
*-*DISCHARGE PLANNING*-* PAITIENT HAS BEEN REFERRED BACK TO: [facility] P: [phone] F: [phone] -*-*CLINICALS FAXED*-*
[2019-07-01 12:00] VITALS: BP 130/67
--- NOTE | 2019-07-01 12:03 | NUR ---
*-*DISCHARGE PLANNED*-* PATIENT HAS BEEN ACCEPTED BACK TO: [facility] P: [phone] F: [phone] # [phone] NURSE REP ABDIAZIZ #: P: [phone] [facility] S[facility]W MARILIA [id number] ETA 1:13PM/ 1315PM
--- NOTE | 2019-07-01 12:40 | Pulmonology Progress Note ---
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 PROBLEM LIST: 1. Healthcare-associated pneumonia. 2. COPD. 3. Bronchiectasis. 4. Pulmonary nodularity. 5. Likely aspiration. 6. Dysphagia. 7. Advanced dementia. 8. Hypertension. 9. Hyperlipidemia. 10. BPH. 11. NSTEMI, ? demand ischemia TREATMENT PLAN: Abx per ID HHN's Aspiration precautions Family declines PEG DVT Px Stable from a pulmonary standpoint to return to SNF Subjective Allergies: Coded Allergies: No Known Allergies (Unverified , 04/23/12) Subjective AFVSS on RA No cough + SOB no FC no CP NAEO otherwise Objective Last 24 Hour Vital Signs Date Time Temp Pulse Resp B/P (MAP) Pulse Ox O2 Delivery O2 Flow Rate FiO2 07/01/19 09:26 97.7 07/01/19 09:00 Nasal Cannula 2.0 07/01/19 08:56 79 134/66 07/01/19 08:02 95 Nasal Cannula 4.0 36 07/01/19 08:01 79 20 98 Nasal Cannula 4.0 36 76 20 94 07/01/19 08:00 97.7 89 20 134/66 (88) 97 07/01/19 07:48 76 07/01/19 04:00 84 07/01/19 04:00 97.3 84 28 112/64 (80) 95 07/01/19 00:58 79 20 98 Nasal Cannula 4.0 36 76 20 94 07/01/19 00:00 97.5 78 25 120/78 (92) 95 07/01/19 00:00 80 06/30/19 21:00 Nasal Cannula 2.0 06/30/19 20:12 95 Nasal Cannula 4.0 36 06/30/19 20:10 72 20 99 Nasal Cannula 4.0 36 70 20 95 06/30/19 20:00 68 06/30/19 20:00 96.8 75 20 118/51 (73) 95 06/30/19 16:00 97.9 74 20 121/60 (80) 98 06/30/19 15:31 76 06/30/19 13:35 71 24 99 Nasal Cannula 3.0 32 68 24 97 Intake and Output 06/30/19 07/01/19 19:00 07:00 Intake Total 236 ml 360 ml Output Total 1100 ml Balance 236 ml -740 ml Intake Oral 236 ml 360 ml Output Urine Total 1100 ml # Voids 1 General Appearance: no acute distress, cachetic - frail demented HEENT: normocephalic, atraumatic, anicteric, mucous membranes moist Respiratory/Chest: chest wall non-tender, lungs clear, normal breath sounds, no respiratory distress, no accessory muscle use Cardiovascular: normal peripheral pulses, normal rate, regular rhythm Abdomen: normal bowel sounds, soft, non tender, no organomegaly, non distended , no mass Extremities: no cyanosis, no clubbing, no edema Microbiology Date/Time Source Procedure Growth Status 06/28/19 14:45 Blood Blood Culture - Preliminary NO GROWTH AFTER 48 HOURS Resulted 06/28/19 14:30 Blood Blood Culture - Preliminary NO GROWTH AFTER 48 HOURS Resulted Laboratory Tests 06/30/19 20:10: Vancomycin Level Trough 18.3H 07/01/19 06:58: White Blood Count 8.9, Red Blood Count 3.05L, Hemoglobin 9.6L, Hematocrit 28.5L , Mean Corpuscular Volume 93, Mean Corpuscular Hemoglobin 31.5H, Mean Corpuscular Hemoglobin Concent 33.7, Red Cell Distribution Width 13.2, Platelet Count 331, Mean Platelet Volume 5.1L, Neutrophils (%) (Auto) 74.2, Lymphocytes ( %) (Auto) 14.5L, Monocytes (%) (Auto) 7.1, Eosinophils (%) (Auto) 3.7H, Basophils (%) (Auto) 0.5, Sodium Level 140, Potassium Level 3.5, Chloride Level 105, Carbon Dioxide Level 26, Anion Gap 9, Blood Urea Nitrogen 8, Creatinine 0.5L, Estimat Glomerular Filtration Rate > 60, Glucose Level 99, Calcium Level 8.5, Troponin I 0.175H Current Medications Medications (Trade) Dose Ordered Sig/Chance Route PRN Reason Start Time Stop Time Status Last Admin Dose Admin Acetaminophen/ Hydrocodone Bitart ([place] 5/325) 1 tab Q6H PRN ORAL For Pain 06/26/19 18:15 07/03/19 18:14 07/01/19 08:56 Albuterol/ Ipratropium (Albuterol/ Ipratropium) 3 ml Q6HRT HHN 06/26/19 19:00 07/01/19 18:59 07/01/19 07:59 Aspirin (Ecotrin) 81 mg DAILY ORAL 06/27/19 09:00 07/27/19 08:59 07/01/19 08:56 Atenolol (Tenormin) 12.5 mg DAILY ORAL 06/30/19 09:00 07/27/19 08:59 07/01/19 08:56 Atorvastatin Calcium (Lipitor) 10 mg BEDTIME ORAL 06/28/19 21:00 07/28/19 20:59 06/30/19 20:37 Escitalopram Oxalate (Lexapro) 10 mg DAILY ORAL 06/27/19 09:00 07/27/19 08:59 07/01/19 08:56 Finasteride (Proscar) 5 mg QHS ORAL 06/26/19 21:00 07/26/19 20:59 06/30/19 20:41 Heparin Sodium (Porcine) (Heparin 5000 units/ml) 5,000 units EVERY 12 HOURS SUBQ 06/26/19 21:00 07/26/19 20:59 07/01/19 09:00 Lorazepam (Ativan) 0.5 mg EVERY 8 HOURS PRN ORAL For Anxiety 06/28/19 23:45 07/05/19 23:44 07/01/19 10:15 Memantine (Namenda) 10 mg BID ORAL 06/27/19 09:00 07/27/19 08:59 07/01/19 08:55 Meropenem 1 gm/ Sodium Chloride 55 ml @ 110 mls/hr Q8H IVPB 06/26/19 18:00 07/03/19 17:59 07/01/19 09:00 Pantoprazole (Protonix) 40 mg Q12HR IVP 06/29/19 21:00 07/29/19 20:59 07/01/19 08:56 Polyethylene Glycol (Miralax) 17 gm DAILY ORAL 06/27/19 09:00 07/27/19 08:59 07/01/19 08:55 Promethazine HCl/ Dextromethorphan (Phenergan DM) 6.25 mg Q8H PRN ORAL For Cough 06/29/19 11:15 07/29/19 11:14 07/01/19 08:55 Sitagliptin Phosphate (Januvia) 100 mg ACBREAKFAST ORAL 06/27/19 06:30 07/27/19 06:29 06/30/19 06:41 Tamsulosin HCl (Flomax) 0.4 mg BEDTIME ORAL 06/26/19 21:00 07/26/19 20:59 06/30/19 20:37 Tiotropium [place] (Spiriva Inhaler) 1 puff DAILY INH 06/27/19 09:00 07/27/19 08:59 06/30/19 09:17 Trazodone HCl (Desyrel) 50 mg QHS ORAL 06/26/19 21:00 07/26/19 20:59 06/30/19 20:37 Vancomycin HCl (Vanco rx to dose) 1 ea DAILY PRN MISC Per rx protocol 06/26/19 14:45 07/26/19 14:44 Vancomycin HCl 750 mg/Sodium Chloride 275 ml @ 183.333 mls/hr Q12HR IVPB 06/28/19 21:00 07/03/19 20:59 07/01/19 08:57 Alonzo Cuevas MD Jul 01, 2019 12:40
--- NOTE | 2019-07-01 13:49 | NUR ---
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 pt left hospital with accompany of ambulance personnel.
[2019-07-01] MEDS ORDERED: NS 500ML ONE (13:54)
[2019-07-01] MEDS ORDERED: NS 275ml ONE (13:54)
--- NOTE | 2019-07-01 14:17 | Infectious Diseases Prog Note ---
Assessment/Plan Problems: (1) Aspiration pneumonia Assessment & Plan: repeated CXR showed reticular densities in both lungs , continue meropenem and vancomycin empirically for 7-10 days , since no sputum was obtained for culture . aspiration precaution . now on special diet (2) Sepsis Assessment & Plan: suspect due to the above, improving with negative repeated blood culture x 2 . continue meropenem and vancomycin empirically for 7-10 days , monitor blood culture (3) Dehydration Assessment & Plan: with vomiting , continue ivf for hydration, monitor lytes (4) Respiratory tract congestion with cough Assessment & Plan: due to the above, supportive care and inhalers as needed (5) Acute encephalopathy Assessment & Plan: due to the above, continue antibiotics hydration , aspiration precaution (6) At high risk for aspiration Assessment & Plan: due to dementia recommend tube feeding since high risk for recurrent aspiration and developing pneumonia . D/W Daughter and Subjective ROS Limited/Unobtainable: Yes Allergies: Coded Allergies: No Known Allergies (Unverified , 04/23/12) Subjective He was lying in bed awake , comfortable , breathing ok, no SOB, no cough or phlegm , no fever or chills tolerated diet Objective Vital Signs Last 24 Hour Vital Signs Date Time Temp Pulse Resp B/P (MAP) Pulse Ox O2 Delivery O2 Flow Rate FiO2 07/01/19 12:00 96.8 80 20 130/67 (88) 100 07/01/19 11:50 71 07/01/19 09:26 97.7 07/01/19 09:00 Nasal Cannula 2.0 07/01/19 08:56 79 134/66 07/01/19 08:02 95 Nasal Cannula 4.0 36 07/01/19 08:01 79 20 98 Nasal Cannula 4.0 36 76 20 94 07/01/19 08:00 97.7 89 20 134/66 (88) 97 07/01/19 07:48 76 07/01/19 04:00 84 07/01/19 04:00 97.3 84 28 112/64 (80) 95 07/01/19 00:58 79 20 98 Nasal Cannula 4.0 36 76 20 94 07/01/19 00:00 97.5 78 25 120/78 (92) 95 07/01/19 00:00 80 06/30/19 21:00 Nasal Cannula 2.0 06/30/19 20:12 95 Nasal Cannula 4.0 36 06/30/19 20:10 72 20 99 Nasal Cannula 4.0 36 70 20 95 06/30/19 20:00 68 06/30/19 20:00 96.8 75 20 118/51 (73) 95 06/30/19 16:00 97.9 74 20 121/60 (80) 98 06/30/19 15:31 76 Height (Feet): 5 Height (Inches): 7.00 Weight (Pounds): 99 General Appearance: no acute distress, cachetic HEENT: normocephalic, atraumatic, anicteric, mucous membranes moist, PERRL, pharynx normal Respiratory/Chest: chest wall non-tender, lungs clear, normal breath sounds, no respiratory distress, no accessory muscle use Cardiovascular: normal peripheral pulses, normal rate, regular rhythm, no gallop/murmur, no JVD Abdomen: normal bowel sounds, soft, non tender, no organomegaly, non distended , no mass, no scars Genitourinary: normal external genitalia Extremities: no cyanosis, no clubbing Skin: no rash, no lesions Neurologic/Psychiatric: materials tech II-XII grossly normal, alert, responsive Lymphatic: no neck adenopathy, no groin adenopathy Musculoskeletal: normal muscle bulk, no effusion Microbiology Date/Time Source Procedure Growth Status 06/28/19 14:45 Blood Blood Culture - Preliminary NO GROWTH AFTER 48 HOURS Resulted 06/28/19 14:30 Blood Blood Culture - Preliminary NO GROWTH AFTER 48 HOURS Resulted Laboratory Tests Test 06/30/19 20:10 07/01/19 06:58 Vancomycin Level Trough 18.3 ug/mL (5.0-12.0) H White Blood Count 8.9 K/UL (4.8-10.8) Red Blood Count 3.05 M/UL (4.70-6.10) L Hemoglobin 9.6 G/DL (14.2-18.0) L Hematocrit 28.5 % (42.0-52.0) L Mean Corpuscular Volume 93 FL (80-99) Mean Corpuscular Hemoglobin 31.5 PG (27.0-31.0) H Mean Corpuscular Hemoglobin Concent 33.7 G/DL (32.0-36.0) Red Cell Distribution Width 13.2 % (11.6-14.8) Platelet Count 331 K/UL (150-450) Mean Platelet Volume 5.1 FL (6.5-10.1) L Neutrophils (%) (Auto) 74.2 % (45.0-75.0) Lymphocytes (%) (Auto) 14.5 % (20.0-45.0) L Monocytes (%) (Auto) 7.1 % (1.0-10.0) Eosinophils (%) (Auto) 3.7 % (0.0-3.0) H Basophils (%) (Auto) 0.5 % (0.0-2.0) Sodium Level 140 MMOL/L (136-145) Potassium Level 3.5 MMOL/L (3.5-5.1) Chloride Level 105 MMOL/L (98-107) Carbon Dioxide Level 26 MMOL/L (21-32) Anion Gap 9 mmol/L (5-15) Blood Urea Nitrogen 8 mg/dL (7-18) Creatinine 0.5 MG/DL (0.55-1.30) L Estimat Glomerular Filtration Rate > 60 mL/min (>60) Glucose Level 99 MG/DL (74-106) Calcium Level 8.5 MG/DL (8.5-10.1) Troponin I 0.175 ng/mL (0.000-0.056) Bety Saini M.D. Jul 01, 2019 14:17
--- NOTE | 2019-07-01 22:30 | Discharge Summary ---
DATE OF ADMISSION: 06/26/2019 DATE OF DISCHARGE: 07/01/2019 HOSPITAL COURSE: This is an 89-year-old [place] male, who was brought in for complaint of shortness of breath with nausea and vomiting. The patient is a long time resident of [facility]. The patient had multiple history of aspiration pneumonia at the rehabilitation and was treated with IV antibiotic. He has history of dementia, hypertension, depression, BPH, and chronic pain syndrome. He was started on cefepime and doxycycline as outpatient in the shelter one day before the admission and started having nausea, vomiting, and worsening of shortness of breath and was decided to bring the patient in for inpatient evaluation. He had chest x-ray done in ER. His chest x-ray showed small left pleural effusion on admission with a follow up chest x-ray that was done on 06/28/2019 showed reticular opacity consistent with possible pleural effusion versus pneumonia. The patient was started on IV antibiotic vancomycin and meropenem per Infectious Diseases. The patient responded to treatment and the WBC improved from 19,000 to 8.9 or 9000. The patient's cough also improved while the patient in the hospital. The patient also had possible sepsis, which the Infectious Diseases recommended to continue the IV antibiotics for a total of seven days more after hospital discharge. He also had elevated troponin secondary to demand ischemia due to possible sepsis and aspiration pneumonia. He had an echo done, which showed ejection fraction of 65%. While in the hospital, the patient was restarted on home medications and also started on DuoNeb [id number] to cover for COPD exacerbation. DISCHARGE DIAGNOSES: Include: 1. Aspiration pneumonia. 2. Possible sepsis. 3. Dehydration. 4. Elevated troponin due to non-ST segment myocardial infarction. 5. Dementia. 6. Benign prostatic hypertrophy. 7. Chronic pain syndrome. 8. Depression. 9. Diabetes mellitus type 2. 10. Chronic obstructive pulmonary disease. DISCHARGE MEDICATIONS: Include atenolol 12.5 mg daily, atorvastatin, Lipitor 10 mg nightly, DuoNeb every six hours, meropenem 1 g IV q.8 h. for seven days, vancomycin 750 mg IV q.12 for seven days, pharmacy dose, pantoprazole 40 mg p.o. q.12, acetaminophen 650 mg q.8 h. p.r.n., aspirin 81 mg daily, Colace 250 mg b.i.d., Lexapro 10 mg daily, Proscar 5 mg daily, Breo 100/25 mcg one puff daily, [place] 5/325 mg one p.o. q.6 h. p.r.n., lorazepam 0.5 mg daily p.r.n., Namenda 10 mg b.i.d., multivitamin one p.o. daily, MiraLax 17 g orally daily, simethicone 80 mg q.8 h. p.r.n., Januvia 100 mg p.o. daily, Flomax 0.4 mg p.o. daily, Spiriva 18 mcg one puff daily, and trazodone 50 mg nightly. DISPOSITION: The patient will be discharged back to [facility] and I will be following the patient within few days. Pantera Benítez M.D. DR: Eva JOB#: [id number] CC: [email or web address]
== END 2019-07-01 13:55 | DRG 871 ==
LOC: EDBD 10:36 → EMR 11:07 → 2E 12:04 → EDBEDREQ 16:27 → 2E 06-28 07:10
DX: A41.9 Sepsis, unspecified organism (principal); J69.0 Pneumonitis due to inhalation of food and vomit; I21.A1 Myocardial infarction type 2; G93.40 Encephalopathy, unspecified; E86.0 Dehydration; I10 Essential (primary) hypertension; E78.5 Hyperlipidemia, unspecified; K21.9 Gastro-esophageal reflux disease without esophagitis; F03.90 Unspecified dementia, unspecified severity, without behavioral disturbance, psychotic disturbance, mood disturbance, and anxiety; N40.0 Benign prostatic hyperplasia without lower urinary tract symptoms; K29.70 Gastritis, unspecified, without bleeding; G89.4 Chronic pain syndrome; E11.9 Type 2 diabetes mellitus without complications; F32.9 Major depressive disorder, single episode, unspecified; R06.03 Acute respiratory distress; R13.10 Dysphagia, unspecified; J44.9 Chronic obstructive pulmonary disease, unspecified
CPT/HCPCS: 36415; 71045; 80048; 80053; 80202; 81003; 82550; 82553; 83605; 83735; 83880; 84100; 84484; 85007; 85025; 86710; 87040; 87081; 93005; 93306; 94640; 96365; 96368; 99285; J7030; J7620